=== PATIENT | female | born 1945 | race Two or more races ===

== ENCOUNTER → 2020-09-08 13:11 | Outpatient (BNVA) | payer MEDICARE, SELFPAY | PROVIDERS: PCP Internal Medicine; Visit Provider Nurse Practitioner Family | DX: I47.1 Supraventricular tachycardia (principal); R00.2 Palpitations | CPT/HCPCS: Q3014 ==

== ENCOUNTER 2020-11-22 10:39 | Outpatient (REF) | payer MEDICARE, SELFPAY ==
[2020-11-22 12:28] LABS: Alanine Aminotransferase 24 U/L (0-31); Albumin Level 3.9 g/dL (3.5-5.0); Alkaline Phosphatase 102 U/L (39-117); Anion Gap 13 (12-20); Aspartate Amino Transferase 21 U/L (5-31); Bilirubin Total 0.6 mg/dL (0.0-1.0); Blood Urea Nitrogen 21 mg/dL (9-16); Calcium 8.8 mg/dL (8.4-10.2); Carbon Dioxide 28 mmol/L (22-29); Chloride 103 mmol/L (96-108); Estimated Glomerular Filt Rate > 60; Glucose Fasting 139 mg/dL (60-99); Sodium 140 mmol/L (135-145); Total Protein 6.6 g/dL (6.5-8.0)
[2020-11-22 12:41] LABS: TSH reflex Free T4 1.88 uIU/mL (0.32-4.0)
[2020-11-22 12:45] LABS: Syphilis Screen Nonreactive (Nonreactive)
[2020-11-22 12:58] LABS: Folate 13.6 ng/mL (> or = 4.0); Vitamin B12 1173 pg/mL (200-900)
[2020-11-28 13:36] LABS: Vitamin D 25-OH, D2 <4 ng/mL; Vitamin D 25-OH, D3 38 ng/mL; Vitamin D 25-OH, Total 38 ng/mL (30-100)
== END 2020-11-22 10:40 | disposition home or self-care (01) ==
LOC: HO.LAB 10:39
PROVIDERS: Absent Provider Internal Medicine Nephrology; PCP Internal Medicine; Referring Provider Psychiatry & Neurology Neurology; Visit Provider Internal Medicine
DX: R41.3 Other amnesia (principal); E03.9 Hypothyroidism, unspecified; E53.8 Deficiency of other specified B group vitamins; E55.9 Vitamin D deficiency, unspecified; E11.9 Type 2 diabetes mellitus without complications; I10 Essential (primary) hypertension; R60.9 Edema, unspecified; R31.29 Other microscopic hematuria
CPT/HCPCS: 36415; 80053; 82306; 82607; 82746; 84443; 86780

== ENCOUNTER → 2020-11-24 15:08 | Outpatient (REF) | payer MEDICARE, SELFPAY ==
--- NOTE | 2020-11-25 10:02 | ECG_ITS ---
Hook-up date: 2020-11-24 15:20:00 Duration: 24:05:00 Test Indications: PALPITATIONS, SVT Medications: 63151 QRS complexes 291 Ventricular ectopics which represent <1 % of total QRS comp. 128 Supraventricular ectopics which represent <1 % of total QRS comp. * Paced QRS complexs which represent % of total QRS comp. VENTRICULAR ECTOPY 291 Isolated 0 Bigeminal Cycles 0 Couplets 0 Runs 0 Beats in Runs * Beats LONGEST at * BPM at :: -- * Beats FASTEST at * BPM at :: -- SUPRAVENTRICULAR ECTOPY 53 Isolated 3 Couplets 8 Runs 69 Beats in Runs 23 Beats LONGEST at 123 BPM at 13:20:58 2020-11-25 4 Beats FASTEST at 138 BPM at 16:50:37 2020-11-24 HEART RATES 50 MIN at 04:35:07 2020-11-25 58 AVG 127 MAX at 13:39:03 2020-11-25 LONGEST RR 1.4960 secs at 09:46:41 2020-11-25 S-T LEVELS Channel 1 - 128 mm at 15:20:00 2020-11-24 - 128 mm at 15:20:00 2020-11-24 Channel 2 - 128 mm at 15:20:00 2020-11-24 - 128 mm at 15:20:00 2020-11-24 Channel 3 - 128 mm at 03:43:91 -- - 128 mm at 03:43:91 Basic rhythm Normal sinus rhythm No long pause or profound bradycardia Occasional Premature ventricular complexes Short runs of SVE c/w PAT No diary submitted Referred By: Dulce Reyes Overread By: DEEPAK HEATH MD
== END ==
LOC: HO.CARD 15:08
PROVIDERS: PCP Internal Medicine; Visit Provider Nurse Practitioner Family
DX: I47.1 Supraventricular tachycardia (principal); R00.2 Palpitations
CPT/HCPCS: 93226

== ENCOUNTER → 2020-12-06 11:08 | Outpatient (BNVA) | payer MEDICARE, SELFPAY | PROVIDERS: PCP Internal Medicine; Visit Provider Nurse Practitioner Family | DX: I47.1 Supraventricular tachycardia (principal); R00.2 Palpitations | CPT/HCPCS: Q3014 ==

== ENCOUNTER 2021-05-09 11:20 | Outpatient (REF) | payer MEDICARE, SELFPAY ==
--- NOTE | ~2021-05-09 | XR_ITS ---
EXAMINATION: XR HIP, RIGHT XR HIP, LEFT CLINICAL INFORMATION: Pain. COMPARISON: Right hip radiographs dated 09/15/2016. Pelvic and bilateral hip radiographs dated 07/19/2015. TECHNIQUE: AP view of the pelvis. AP and frog-leg lateral views of the right and left hip. FINDINGS: Right Hip: Mild right hip joint space narrowing. Lateral acetabular marginal osteophytes and subchondral cystic change. No acute fracture or dislocation. No abnormal soft tissue calcification. Left Hip: Mild left hip joint space narrowing with acetabular marginal osteophytes, increased when compared to the prior examination. No acute fracture or dislocation. No abnormal soft tissue calcification. Moderate degenerative arthritis at the symphysis pubis, increased when compared to the prior examination. XR/XR hip RT min 2V IMPRESSION: 1. Moderate right hip osteotomy arthritis, unchanged when compared to the radiographs dated 09/15/2016. 2. Moderate left hip osteoarthritis, progressed when compared to the radiographs dated 07/19/2015. 3. 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
--- NOTE | ~2021-05-09 | XR_ITS ---
EXAMINATION: XR HIP, RIGHT XR HIP, LEFT CLINICAL INFORMATION: Pain. COMPARISON: Right hip radiographs dated 09/15/2016. Pelvic and bilateral hip radiographs dated 07/19/2015. TECHNIQUE: AP view of the pelvis. AP and frog-leg lateral views of the right and left hip. FINDINGS: Right Hip: Mild right hip joint space narrowing. Lateral acetabular marginal osteophytes and subchondral cystic change. No acute fracture or dislocation. No abnormal soft tissue calcification. Left Hip: Mild left hip joint space narrowing with acetabular marginal osteophytes, increased when compared to the prior examination. No acute fracture or dislocation. No abnormal soft tissue calcification. Moderate degenerative arthritis at the symphysis pubis, increased when compared to the prior examination. XR/XR hip LT min 2V IMPRESSION: 1. Moderate right hip osteotomy arthritis, unchanged when compared to the radiographs dated 09/15/2016. 2. Moderate left hip osteoarthritis, progressed when compared to the radiographs dated 07/19/2015. 3. 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
[2021-05-09 11:36] LABS: MANUAL DIFF FLAG NO
[2021-05-09 11:55] LABS: Basophils Absolute Auto 0.1 X10*3/uL (0.0-0.2); Basophils Percent Auto 1.1 % (0-2); Eosinophils Absolute Auto 0.2 X10*3/uL (0.0-0.4); Eosinophils Percent Auto 2.6 % (0-4); Hematocrit 44.2 % (37-47); Hemoglobin 14.4 g/dl (12.0-16.0); Imm Gran Abs Auto 0.02 X10*3/uL (0.00-0.03); Imm Gran Pct Auto 0.3 % (0.0-0.4); Lymphocytes Percent Auto 32.6 % (20-40); Mean Corpuscular HGB Conc 32.6 g/dl (31.0-35.0); Mean Corpuscular Hemoglobin 28.9 pg (27.0-33.0); Mean Corpuscular Volume 88.8 fL (80-98); Mean Platelet Volume 10.9 fL (9.4-12.3); Monocytes Absolute Auto 0.7 X10*3/uL (0.1-1.2); Monocytes Percent Auto 11.2 % (2-11); Neutrophils Absolute Auto 3.3 X10*3/uL (2.0-8.3); Neutrophils Percent Auto 52.2 % (45-73); Platelet Count 186 X10*3/uL (160-400); Red Blood Count 4.98 X10*6/uL (4.20-5.50); Red Cell Distribution Width 14.1 % (11.0-16.0); White Blood Count 6.3 X10*3/uL (4.8-10.8)
[2021-05-09 12:19] LABS: Alanine Aminotransferase 18 U/L (0-31); Albumin Level 3.9 g/dL (3.5-5.0); Alkaline Phosphatase 120 U/L (39-117); Anion Gap 11 (12-20); Aspartate Amino Transferase 19 U/L (5-31); Bilirubin Total 0.4 mg/dL (0.0-1.0); Blood Urea Nitrogen 17 mg/dL (9-16); Calcium 9.2 mg/dL (8.4-10.2); Carbon Dioxide 28 mmol/L (22-29); Chloride 106 mmol/L (96-108); Cholesterol 177 mg/dL; Estimated Glomerular Filt Rate 59; Glucose Fasting 163 mg/dL (60-99); HDL Cholesterol 42 mg/dL; LDL Cholesterol Calculated 118 mg/dl; Magnesium 2.2 mg/dL (1.6-2.6); Potassium 4.8 mmol/L (3.3-5.1); Sodium 140 mmol/L (135-145); Total Protein 6.8 g/dL (6.5-8.0); Triglycerides 87 mg/dL
[2021-05-09 12:40] LABS: TSH reflex Free T4 (Prenatal) 0.64 uIU/mL (0.32-4.0); Thyroid Stimulating Hormone 0.66 uIU/mL (0.32-4.0)
[2021-05-09 12:59] LABS: Folate 13.3 ng/mL (> or = 4.0); Vitamin B12 > 2000 pg/mL (200-900)
[2021-05-09 13:56] LABS: Creatinine Urine 150.13 mg/dL; Microalbum/Creatinine Ratio Ur 41.9 ug/mg cr
[2021-05-13 13:42] LABS: Vitamin D 25-OH, D2 <4 ng/mL; Vitamin D 25-OH, D3 36 ng/mL; Vitamin D 25-OH, Total 36 ng/mL (30-100)
== END 2021-05-09 11:21 | disposition home or self-care (01) ==
LOC: HO.XRAY 11:20
PROVIDERS: Nurse Practitioner Family; PCP Internal Medicine; Visit Provider Internal Medicine
DX: M25.552 Pain in left hip (principal); M25.551 Pain in right hip; I47.1 Supraventricular tachycardia; R00.2 Palpitations; E11.9 Type 2 diabetes mellitus without complications; E78.5 Hyperlipidemia, unspecified; E55.9 Vitamin D deficiency, unspecified; E53.8 Deficiency of other specified B group vitamins; D64.9 Anemia, unspecified; E03.9 Hypothyroidism, unspecified
CPT/HCPCS: 36415; 73502; 80053; 80061; 82043; 82306; 82607; 82746; 83735; 84443; 85025

== ENCOUNTER 2022-01-17 12:28 | Outpatient (REF) | payer MEDICARE, SELFPAY ==
--- NOTE | ~2022-01-17 | MM_ITS ---
EXAMINATION: MM SCREENING DIGITAL BREAST TOMOSYNTHESIS, BILATERAL CLINICAL INFORMATION: Screening. Asymptomatic. Prior history bilateral excisional breast biopsies. The lifetime risk of breast cancer based on the Tyrer-Cuzick Model is 2%. COMPARISON: Mammography: 12/02/2018, 06/03/2018, 11/26/2017, 11/21/2017 TECHNIQUE: Digital breast tomosynthesis is performed in both the craniocaudal and mediolateral oblique views along with computer-aided detection (CAD). Synthesized 2D images are generated from the tomosynthesis. Additional bilateral MLO views are provided. FINDINGS: There are scattered areas of fibroglandular density (ACR BI-RADS breast composition Category b). There are stable post surgical changes with minor scarring and central left surgical clips similar to prior exams. There is no developing density or interval significant mass or architectural abnormality. There are scattered bilateral vascular and some fine round rim predominantly dermal calcifications in the posterior medial breasts. Right breast again has several scattered tightly grouped coarse calcifications suggesting foci of fibroadenomatous change. The axilla are unremarkable. No significant changes from prior study. MM/MM tomosynthesis screening BI IMPRESSION: No mammographic evidence of malignancy. ASSESSMENT: BI-RADS 2: Benign RECOMMENDATION: Routine annual mammography screening. This patient's information was entered into a reminder system with a target due date for their next mammogram.
== END 2022-01-17 12:29 | disposition home or self-care (01) ==
LOC: HO.MAMMO 12:28
PROVIDERS: PCP Internal Medicine; Visit Provider Internal Medicine
DX: Z12.31 Encounter for screening mammogram for malignant neoplasm of breast (principal)
CPT/HCPCS: 77063; 77067

== ENCOUNTER 2023-01-29 13:43 | Outpatient (REF) | payer OTHER, SELFPAY ==
--- NOTE | ~2023-01-29 | MM_ITS ---
EXAMINATION: MM SCREENING DIGITAL BREAST TOMOSYNTHESIS, BILATERAL CLINICAL INFORMATION: Screening. Asymptomatic. Remote history bilateral benign excisional biopsies, 2007. The lifetime risk of breast cancer based on the Tyrer-Cuzick Model is 2%. COMPARISON: Mammography: 01/17/2022, 12/02/2018, 06/03/2018, 11/26/2017, 11/21/2017 TECHNIQUE: Digital breast tomosynthesis is performed in both the craniocaudal and mediolateral oblique views along with computer-aided detection (CAD). Synthesized 2D images are generated from the tomosynthesis. Additional right MLO view is provided. FINDINGS: The breasts are heterogeneously dense, which may obscure small masses (ACR BI-RADS breast composition Category c). Parenchymal pattern is similar to prior studies with bilateral minor scarring and surgical clips consistent with the prior excisional biopsies. There is no developing density or interval mass or architectural abnormality. No abnormal calcifications. The axilla are unremarkable. No significant changes. MM/MM tomosynthesis screening BI IMPRESSION: No mammographic evidence of malignancy. ASSESSMENT: BI-RADS 2: Benign RECOMMENDATION: Routine annual mammography screening. This patient's information was entered into a reminder system with a target due date for their next mammogram.
== END 2023-01-29 13:44 | disposition home or self-care (01) ==
LOC: HO.MAMMO 13:43
PROVIDERS: PCP Internal Medicine; Visit Provider Internal Medicine
DX: Z12.31 Encounter for screening mammogram for malignant neoplasm of breast (principal)
CPT/HCPCS: 77063; 77067

== ENCOUNTER 2023-02-21 12:59 | Outpatient (AMB) | payer MEDICARE, SELFPAY ==
--- NOTE | 2023-02-21 13:02 | A.OFFPC_ITS ---
Vital Signs 02/21/23 13:03 Height 5 ft 4 in Weight 187 lb BMI 32.1 BP 110/68 Blood Pressure Location Lt brachial Position Sitting Intake Visit Reasons: dm Intake Note: Patient here for a follow up DM [employer]enic [employer] Supervisor Required: No Accompanied by: Self / Same As Patient Allergies codeine [CODEINE] Allergy (Intermediate, Verified 02/21/23 13:21) PRURITUS ibuprofen Allergy (Intermediate, Verified 02/21/23 13:21) stomach upset morphine [MORPHINE] Allergy (Intermediate, Verified 02/21/23 13:21) PRURITUS Penicillins [PENICILLINS] Allergy (Intermediate, Verified 02/21/23 13:21) SWELLING Medication List - Last Reconciled 02/21/23 by Nori Parra MD albuterol sulfate 2.5 mg (3 mL) inhalation TID PRN 30 days alcohol swabs 0 pad topical aspirin 81 mg PO DAILY blood sugar diagnostic As directed blood-glucose meter As directed cetirizine 10 mg PO BID 30 days cyanocobalamin (vitamin B-12) 1,000 mcg PO DAILY flecainide 50 mg PO Q12H 30 days fluticasone propionate 44 mcg/actuation (Flovent HFA) 1 puff inhalation BID 30 days [hospital bed side table As directed] insulin aspart U-100 units subcut insulin glargine (Lantus Solostar U-100 Insulin) 16 units (0.16 mL) subcut BEDTIME levothyroxine 88 mcg PO DAILY lidocaine 5% 1 patch topical DAILY PRN 30 days lisinopril 2.5 mg PO DAILY melatonin 0 mg PO metoprolol succinate ER 25 mg PO DAILY mirtazapine 15 mg PO BEDTIME nebulizers (AeroEclipse II Nebulizer) As directed omeprazole 20 mg PO DAILY 90 days oxycodone-acetaminophen 5-325 mg (Percocet) 1 tab PO Q8H PRN 30 days pen needle, diabetic As directed pregabalin 200 mg PO DAILY rosuvastatin 40 mg PO DAILY trazodone 150 mg PO Q OTHER DAY PRN triamcinolone acetonide 0.5% 1 appl topical DAILY 30 days Tobacco use date assessed: 09/28/22 Fall risk assessment: No Falls in past year Last assessed Fall Risk: 02/21/23 Dental Screening Dental Screen Date: 02/21/23 Did you have a dental visit in the last 12 months?: No Did you have a dental problem in the last 6 months where you did not have access to dental care?: No Was dental information given to patient?: Patient has dentist HPI HPI Comments History of Present Illness Details This is a 77-year-old female with diabetes mellitus type 2, hypertension, hypothyroidism and high cholesterol that comes today for follow-up on her conditions. Walks with a cane for gait stability. A1c within goal. Blood pressure stable. On statins for high cholesterol. Her LDL goal should be less than 70. Diabetes mellitus and thyroid are follow by Endocrinology. Hypertension follow by cardiology. Microalbuminuria follow by Nephrology. Complains of pain in feet and swelling that started few weeks ago. No previous trauma. [facility] Medical History B12 deficiency Cognitive impairment Diabetes Diabetic polyneuropathy GERD (gastroesophageal reflux disease) High cholesterol Hypertension Hypothyroidism Insomnia Left hip pain Leg edema Osteoarthritis, hip, bilateral Palpitations Physical exam Right hip pain SVT (supraventricular tachycardia) Urge urinary incontinence Surgical History History of total abdominal hysterectomy Hx of bilateral breast biopsy Family History Father CVD (cardiovascular disease) Mother CVD (cardiovascular disease) Son No problems noted. Social History Housing: Apartment Alcohol intake: current Alcohol intake frequency: holidays/special occasions only Alcohol type: wine Patient Tobacco Use Status: Former Tobacco user Tobacco use type: Cigarette e-Cigarette/Vaping Use: Never Used Second Hand Smoke Exposure: No service: No Current occupational status: disabled Cognitive needs: Yes Hearing needs: No Vision needs: No Questionnaire Thrive Questionnaire Date Thrive assessed: 09/28/22 CLAU-7 AMB Questionnaire CLAU-7 Date CLAU - 7 assessed: 09/28/22 Source: Developed by Drs. Anil Jimenes, Rain Becerra, Byron Carmona and colleagues, with an educational jammie from [employer] Review of Systems Const All systems reviewed & are unremarkable except as noted in HPI and below Eyes Reports no additional complaints, Denies change in vision and Denies other visual disturbances Card Denies chest pain at rest, Denies chest pain with activity, Denies edema, Denies irregular heart rhythm, Denies claudication, Denies dyspnea, Denies dyspnea on exertion, Denies orthopnea, Denies paroxysmal nocturnal dyspnea and Denies slow heart rate Resp Denies cough, Denies dyspnea and Denies dyspnea on exertion GI Denies abdominal pain, Denies change in bowel habits, Denies excessive flatus, Denies nausea and Denies vomiting Denies urinary incontinence, Denies urinary hesitancy and Denies urinary urgency Musc Denies abnormal gait, Denies atrophy, Denies deformity, Reports arthralgias and Denies limited range of motion Skin/Breast Denies bleeding lesions, Denies changing lesions and Denies rash Neuro Denies abnormal gait and Denies lack of coordination Physical exam (Primary Care) Vital Signs: Last Vital Signs BP 110/68 02/21/23 13:03 BMI result Body Mass Index 32.1 Tobacco/Smoking Status: Tobacco use Status Tobacco use date assessed 09/28/22 02/21/23 13:08 Patient Tobacco Use Status Former Tobacco user 02/21/23 13:08 Tobacco use type Cigarette 02/21/23 13:08 e-Cigarette/Vaping Use Never Used 02/21/23 13:08 Thrive Assessment: Date of Thrive Assessment Date Thrive assessed 09/28/22 02/21/23 13:08 Eyes General: appearance normal, both eyes and all related structures Eyelids: Yes eyelids normal Conjunctivae: conjunctivae normal Neck Neck: Yes normal visual inspection and Yes supple Resp Effort & Inspection: normal respiratory effort Auscultation: clear to auscultation bilaterally Cardio Jugular venous distension: no JVD Rate: regular rate Rhythm: regular rhythm Heart sounds: S1 normal heart sound present and S2 normal heart sound present Extrem General: Yes full ROM Results AMB Hemoglobin A1c AMB Hemoglobin A1c 6.6 % Last Edit by ADDISON Pearce on 02/21/23 13:1 7 Results Reviewed Results Reviewed: Laboratory Last Values Hgb A1c (Clinic) 6.6 % (4.0-6.0) H 02/21/23 13:01 Assessment and Plan Assessment & Plan (1) Diabetes: Code(s): E11.9 - Type 2 diabetes mellitus without complications Qualifiers: Diabetes mellitus type: type 2 Diabetes mellitus halfway insulin use: with computer terminal operator use Diabetes mellitus complication status: with hyperglycemia Qualified Code(s): E11.65 - Type 2 diabetes mellitus with hyperglycemia; Z79.4 - intermediate manager (current) use of insulin Plan: Continue insulin. A1c goal is equal or less than 7%. (2) Hypertension: Code(s): I10 - Essential (primary) hypertension Qualifiers: Hypertension type: essential hypertension Qualified Code(s): I10 - Essential (primary) hypertension Plan: Continue lisinopril. Blood pressure goal is equal or less than 130/80. (3) Hypothyroidism: Code(s): E03.9 - Hypothyroidism, unspecified Qualifiers: Hypothyroidism type: acquired Qualified Code(s): E03.9 - Hypothyroidism, unspecified Plan: Continue levothyroxine. (4) High cholesterol: Code(s): E78.00 - Pure hypercholesterolemia, unspecified Plan: Continue statins. LDL goal should be less than 70 Orders: Orders AMB Hemoglobin A1c Today E11.9 - Type 2 diabetes mellitus without complications Medications: New diclofenac sodium 1% (Arthritis Pain (diclofenac)) apply to single elbow, wrist or hand; for hand includes palm/fingers/back of hand 2 grams topical QID 30 days PRN 100 grams 1RF pain oxycodone Partial Fill upon patient request. 5 mg PO Q8H 30 days PRN 90 tabs 0RF pain fluocinolone acetonide oil 0.01% (DermOtic Oil) 5 drps otic (ear) left BID 7 days 20 mL 0RF Discontinued oxycodone-acetaminophen 5-325 mg (Percocet) Discontinued Reason: Patient Completed Course 1 tab PO Q8H 30 days PRN 90 tabs 0RF pain Coding Level of Care Code Est Pt Level 4 (18916) Diagnoses Diabetes E11.65; Z79.4 Diabetes mellitus type: type 2 Diabetes mellitus computer terminal operator insulin use: with halfway use Diabetes mellitus complication status: with hyperglycemia Hypertension I10 Hypertension type: essential hypertension Hypothyroidism E03.9 Hypothyroidism type: acquired High cholesterol E78.00 Time Spent (min) 23
[2023-02-21 13:03] VITALS: BP 110/68; BMI 32.1
== END 2023-02-21 13:37 | disposition home or self-care (01) ==
PROVIDERS: Visit Provider Internal Medicine
DX: E11.65 Type 2 diabetes mellitus with hyperglycemia (principal); Z79.4 Long term (current) use of insulin; I10 Essential (primary) hypertension; E03.9 Hypothyroidism, unspecified; E78.00 Pure hypercholesterolemia, unspecified; E11.9 Type 2 diabetes mellitus without complications
CPT/HCPCS: 83036; 99214

== ENCOUNTER 2023-06-12 13:15 | Outpatient (AMB) | payer MEDICARE, SELFPAY ==
[2023-06-12 13:30] VITALS: BP 112/60; PULSE 66; BMI 32.7
--- NOTE | 2023-06-12 13:30 | HO.NEPHOV ---
HPI HPI Comments History of Present Illness Details Barbi was seen in the office for follow-up of her history of microscopic hematuria and proteinuria. She, at times, has mild bilateral pedal edema. She does not have any shortness of breath, paroxysmal nocturnal dyspnea, orthopnea. She takes nonsteroidal anti-inflammatory medications but not on a regular basis. She has not had any urinary infection, microscopic hematuria, dizziness, chest pain. She sees a manager spa Dr. Soto who manages her heart rhythm. She is maintained on lisinopril. She had no new active complaints during this office visit. Her blood sugars are reasonably well controlled. She has lost some weight . [facility] [place] Medical History Physical exam Osteoarthritis, hip, bilateral Right hip pain Left hip pain Palpitations SVT (supraventricular tachycardia) B12 deficiency Leg edema Cognitive impairment Diabetic polyneuropathy Insomnia GERD (gastroesophageal reflux disease) High cholesterol Diabetes Hypothyroidism Hypertension Urge urinary incontinence Surgical History History of total abdominal hysterectomy Hx of bilateral breast biopsy Family History Father CVD (cardiovascular disease) Mother CVD (cardiovascular disease) Son No problems noted. Social History Housing: Apartment Alcohol intake: current Alcohol intake frequency: holidays/special occasions only Alcohol type: wine Patient Tobacco Use Status: Former Tobacco user Tobacco use type: Cigarette e-Cigarette/Vaping Use: Never Used Second Hand Smoke Exposure: No service: No Current occupational status: disabled Cognitive needs: Yes Hearing needs: No Vision needs: No Vital Signs 06/12/23 13:30 Height 5 ft 4 in Weight 190 lb 8 oz BMI 32.7 BP 112/60 Blood Pressure Location Lt brachial Position Sitting Pulse 66 Pulse Source Pulse Oximeter Assessment & Plan Assessment & Plan (1) Hypertension: Code(s): I10 - Essential (primary) hypertension Qualifiers: Hypertension type: essential hypertension Qualified Code(s): I10 - Essential (primary) hypertension Plan Serenity has history of microscopic hematuria and proteinuria. She is on Marcio inhibitors. Her blood pressure is at goal. She has not had any macroscopic hematuria. Her renal functions have been stable. She needs to maintain her blood sugar at goal. She needs to lose more weight. She will be a candidate for Jardiance or Farxiga. I have ordered follow-up lab work. All her questions were answered. She is going to be seen in follow-up. Time spent retrieving data, patient encounter and documentation 27 minutes Orders: Orders Electrolytes Today I10 - Essential (primary) hypertension, R31.9 - Hematuria, unspecified Blood Urea Nitrogen Today I10 - Essential (primary) hypertension, R31.9 - Hematuria, unspecified Calcium Today I10 - Essential (primary) hypertension, R31.9 - Hematuria, unspecified Protein Creatinine Ratio, Ur Today I10 - Essential (primary) hypertension, R31.9 - Hematuria, unspecified Creatinine Today I10 - Essential (primary) hypertension, R31.9 - Hematuria, unspecified Coding Level of Care Code Est Pt Level 3 (54084) Diagnoses Essential hypertension I10 Hypertension type: essential hypertension
== END 2023-06-12 13:55 | disposition home or self-care (01) ==
PROVIDERS: PCP Internal Medicine; Visit Provider Internal Medicine Nephrology
DX: I10 Essential (primary) hypertension (principal)
CPT/HCPCS: 99213

== ENCOUNTER → 2023-06-12 13:15 | Outpatient (BNVA) | payer MEDICARE, SELFPAY | PROVIDERS: PCP Internal Medicine; Visit Provider Internal Medicine Nephrology | DX: I10 Essential (primary) hypertension (principal) | CPT/HCPCS: 99212 ==

== ENCOUNTER 2023-06-13 13:28 | Outpatient (AMB) | payer MEDICARE, SELFPAY ==
[2023-06-13 13:43] VITALS: BP 124/80; PULSE 55; O2SAT 96; BMI 32.1
--- NOTE | 2023-06-13 13:43 | A.OFFPC_ITS ---
Vital Signs 06/13/23 13:43 Height 5 ft 4 in Weight 187 lb BMI 32.1 BP 124/80 Blood Pressure Location Lt brachial Position Sitting Pulse 55 Pulse Source Pulse Oximeter Pulse Oximetry (%) 96 Oxygen Delivery Method Room Air Intake Visit Reasons: 2mth f/u Intake Note: Patient is here to follow up on 2 month f/u. 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 Accompanied by: Self / Same As Patient Allergies codeine [CODEINE] Allergy (Intermediate, Verified 06/13/23 14:08) PRURITUS ibuprofen Allergy (Intermediate, Verified 06/13/23 14:08) stomach upset morphine [MORPHINE] Allergy (Intermediate, Verified 06/13/23 14:08) PRURITUS Penicillins [PENICILLINS] Allergy (Intermediate, Verified 06/13/23 14:08) SWELLING Medication List - Last Reconciled 06/13/23 by Nori Parra MD albuterol sulfate 2.5 mg (3 mL) inhalation TID PRN 30 days alcohol swabs 0 pad topical aspirin 81 mg PO DAILY blood sugar diagnostic As directed blood-glucose meter As directed cetirizine 10 mg PO BID 30 days flecainide 50 mg PO Q12H 30 days fluocinolone acetonide oil 0.01% (DermOtic Oil) 5 drps otic (ear) left BID 7 days fluticasone propionate 44 mcg/actuation (Flovent HFA) 1 puff inhalation BID 30 days [hospital bed side table As directed] incontinence pad, liner, disp Use 1 pad three times a day insulin aspart U-100 units subcut insulin glargine (Lantus Solostar U-100 Insulin) 16 units (0.16 mL) subcut BEDTIME latex gloves (Latex Gloves, Large) As directed levothyroxine 88 mcg PO DAILY lisinopril 2.5 mg PO DAILY metoprolol succinate ER 25 mg PO DAILY nebulizers (AeroEclipse II Nebulizer) As directed omeprazole 20 mg PO DAILY 90 days oxycodone 5 mg PO Q8H PRN 30 days pen needle, diabetic As directed pregabalin 200 mg PO DAILY rosuvastatin 40 mg PO DAILY trazodone 150 mg PO Q OTHER DAY PRN [wipes As directed] Tobacco use date assessed: 06/13/23 Fall risk assessment: No Falls in past year Last assessed Fall Risk: 06/13/23 HPI HPI Comments History of Present Illness Details This is 77-year-old female with diabetes mellitus type 2 on long-term current use of insulin, hyperlipidemia, hypothyroidism lumbar degenerative disc disease that comes today for follow-up on her conditions. A1c within goal. On statins for cholesterol and her LDL goal should be less than 70. Last TSH in April was normal. Has chronic back pain due to lumbar degenerative disc disease well control with oxycodone and reports no side effects. Patient aware that oxycodone can cause addiction and sedation. Complains of left ear pain. Has mild major depression and insomnia stable with trazodone. REPLACED BY [facility] Medical History (Updated 06/13/23 @ 15:11 by Nori Parra MD) Physical exam Osteoarthritis, hip, bilateral Right hip pain Left hip pain Palpitations SVT (supraventricular tachycardia) B12 deficiency Leg edema Cognitive impairment Diabetic polyneuropathy Insomnia GERD (gastroesophageal reflux disease) High cholesterol Diabetes Hypothyroidism Hypertension Urge urinary incontinence Surgical History History of total abdominal hysterectomy Hx of bilateral breast biopsy Family History Father CVD (cardiovascular disease) Mother CVD (cardiovascular disease) Son No problems noted. Social History Housing: Apartment Alcohol intake: current Alcohol intake frequency: holidays/special occasions only Alcohol type: wine Patient Tobacco Use Status: Former Tobacco user Tobacco use type: Cigarette e-Cigarette/Vaping Use: Never Used Second Hand Smoke Exposure: No service: No Current occupational status: disabled Cognitive needs: Yes Hearing needs: No Vision needs: No Questionnaire PHQ-9 Over the last 2 weeks, how often have you been bothered by any of the following problems? 1. Little interest or pleasure in doing things: several days 2. Feeling down, depressed, or hopeless: nearly every day 3. Trouble falling or staying asleep, or sleeping too much: several days 4. Feeling tired or having little energy: several days 5. Poor appetite or overeating: several days 6. Feeling bad about yourself - or that you are a failure or have let yourself or your family down: not at all 7. Trouble concentrating on things, such as reading the newspaper or watching television: several days 8. Moving or speaking so slowly that other people could have noticed. Or the opposite - being so fidgety or restless that you have been moving around a lot more than usual: not at all 9. Thoughts that you would be better off or of hurting yourself in some way: not at all Total score: 8 Depression Screening Interpretation: Positive Depression Screening Follow-up: Existing condition Depression Screening Done: Yes 99934 - PHQ-9 Billing: Yes Source: Developed by Drs. Anil Jimenes, Rain Becerra, Byron Carmona and colleagues, with an educational jammie from [employer]. Thrive Questionnaire Date Thrive assessed: 09/28/22 AUDIT C Alcohol Use Questionnaire (AUDIT-C) 1. How often do you have a drink containing alcohol?: Never Total Score: 0 CLAU-7 AMB Questionnaire CLAU-7 Date CLAU - 7 assessed: 09/28/22 Source: Developed by Drs. Anil Jimenes, Rain Becerra, Byron Carmona and colleagues, with an educational jammie from [employer]. Review of Systems Const All systems reviewed & are unremarkable except as noted in HPI and below Eyes Reports no additional complaints, Denies change in vision and Denies other visual disturbances Card Denies chest pain at rest, Denies chest pain with activity, Denies edema, Denies irregular heart rhythm, Denies claudication, Denies dyspnea, Denies dyspnea on exertion, Denies orthopnea, Denies paroxysmal nocturnal dyspnea and Denies slow heart rate Resp Denies cough, Denies dyspnea and Denies dyspnea on exertion GI Denies abdominal pain, Denies change in bowel habits, Denies excessive flatus, Denies nausea and Denies vomiting Denies urinary incontinence, Denies urinary hesitancy and Denies urinary urgency Musc Denies abnormal gait, Denies atrophy, Denies deformity and Denies limited range of motion Skin/Breast Denies bleeding lesions, Denies changing lesions and Denies rash Neuro Denies abnormal gait and Denies lack of coordination Physical exam (Primary Care) Vital Signs: Last Vital Signs Pulse 55 06/13/23 13:43 BP 124/80 06/13/23 13:43 Pulse Ox 96 06/13/23 13:43 Oxygen Delivery Method Room Air 06/13/23 13:43 BMI result Body Mass Index 32.1 Tobacco/Smoking Status: Tobacco use Status Tobacco use date assessed 06/13/23 06/13/23 13:44 Patient Tobacco Use Status Former Tobacco user 06/13/23 13:44 Tobacco use type Cigarette 06/13/23 13:44 e-Cigarette/Vaping Use Never Used 06/13/23 13:44 PHQ-9: PHQ-9 Score PHQ-9: Total score 8 06/13/23 14:14 Depression Screening Interpretation: Positive Depression Screening Follow-up: Existing condition Thrive Assessment: Date of Thrive Assessment Date Thrive assessed 09/28/22 06/13/23 13:44 Eyes General: appearance normal, both eyes and all related structures Eyelids: Yes eyelids normal Conjunctivae: conjunctivae normal Neck Neck: Yes normal visual inspection and Yes supple Resp Effort & Inspection: normal respiratory effort Auscultation: clear to auscultation bilaterally Cardio Jugular venous distension: no JVD Rate: regular rate Rhythm: regular rhythm Heart sounds: S1 normal heart sound present and S2 normal heart sound present Extrem General: Yes full ROM Results AMB Hemoglobin A1c AMB Hemoglobin A1c 6.4 % Last Edit by ADDISON Escobar on 06/13/23 13:58 Results Reviewed Results Reviewed: Laboratory Last Values Hgb A1c (Clinic) 6.4 % (4.0-6.0) H 06/13/23 13:42 Assessment and Plan Assessment & Plan (1) Diabetes: Code(s): E11.9 - Type 2 diabetes mellitus without complications Qualifiers: Diabetes mellitus type: type 2 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 A1c goal is equal or less than 7%. Follow-up with endocr inology. (2) Hypothyroidism: Code(s): E03.9 - Hypothyroidism, unspecified Qualifiers: Hypothyroidism type: acquired Qualified Code(s): E03.9 - Hypothyroidism, unspecified Plan: Continue levothyroxine. Follow-up with endocrinology. (3) Hyperlipidemia LDL goal <70: Code(s): E78.5 - Hyperlipidemia, unspecified Plan: Continue statins. LDL goal should be less than 70. (4) Lumbar degenerative disc disease: Code(s): M51.36 - Other intervertebral disc degeneration, lumbar region Plan: Continue opiates as needed. (5) Mild major depression: Code(s): F32.0 - Major depressive disorder, single episode, mild Plan: Continue trazodone. Orders: Orders AMB Hemoglobin A1c Today E11.9 - Type 2 diabetes mellitus without complications Medications: New acetaminophen 500 mg PO Q6H 30 days PRN 100 tabs 6RF fever or pain ciprofloxacin-hydrocortisone 0.2-1 % (Cipro HC) 3 drps otic (ears) BID 7 days 10 mL 0RF Refilled oxycodone Partial Fill upon patient request. 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
== END 2023-06-13 14:27 | disposition home or self-care (01) ==
PROVIDERS: PCP Internal Medicine; Visit Provider Internal Medicine
DX: E11.65 Type 2 diabetes mellitus with hyperglycemia (principal); Z79.4 Long term (current) use of insulin; F32.0 Major depressive disorder, single episode, mild; E03.9 Hypothyroidism, unspecified; E78.5 Hyperlipidemia, unspecified; M51.36 Other intervertebral disc degeneration, lumbar region
CPT/HCPCS: 83036; 99214

== ENCOUNTER 2023-09-12 11:59 | Outpatient (AMB) | payer MEDICARE, SELFPAY ==
--- NOTE | 2023-09-12 12:10 | HO.NEPHOV_ITS ---
HPI HPI Comments History of Present Illness Details Serenity was seen in the office for follow-up of her history of microscopic hematuria and proteinuria. She, at times, has mild bilateral pedal edema. She does not have any shortness of breath, paroxysmal nocturnal dyspnea, orthopnea. She takes nonsteroidal anti-inflammatory medications but not on a regular basis. She has not had any urinary infection, microscopic hematuria, dizziness, chest pain. She sees a homicide investigator Dr. Soto who manages her heart rhythm. She is maintained on lisinopril. She had no new active complaints during this office visit. Her blood sugars are reasonably well controlled. She has lost some weight PFSH Medical History Physical exam Osteoarthritis, hip, bilateral Right hip pain Left hip pain Palpitations SVT (supraventricular tachycardia) B12 deficiency Leg edema Cognitive impairment Diabetic polyneuropathy Insomnia GERD (gastroesophageal reflux disease) High cholesterol Diabetes Hypothyroidism Hypertension Urge urinary incontinence Surgical History History of total abdominal hysterectomy Hx of bilateral breast biopsy Family History Father CVD (cardiovascular disease) Mother CVD (cardiovascular disease) Son No problems noted. Social History Housing: Apartment Alcohol intake: current Alcohol intake frequency: holidays/special occasions only Alcohol type: wine Patient Tobacco Use Status: Former Tobacco user Tobacco use type: Cigarette e-Cigarette/Vaping Use: Never Used Second Hand Smoke Exposure: No service: No Current occupational status: disabled Cognitive needs: Yes Hearing needs: No Vision needs: No Vital Signs 09/12/23 12:11 Height 5 ft 4 in Weight 191 lb 4 oz BMI 32.8 BP 110/70 Blood Pressure Location Rt brachial Position Sitting Pulse 56 Pulse Source Pulse Oximeter Pulse Oximetry (%) 96 Oxygen Delivery Method Room Air Physical Exam Vital Signs: Last Vital Signs Pulse 56 09/12/23 12:11 BP 110/70 09/12/23 12:11 Pulse Ox 96 09/12/23 12:11 Oxygen Delivery Method Room Air 09/12/23 12:11 BMI result Body Mass Index 32.8 Const General: comfortable and no acute distress Orientation/consciousness: patient oriented x3 HEENT Head: Yes normocephalic Mouth: Normal oral and palatal mucosa present Eyes EOM: EOMs intact bilaterally Neck Neck: Yes supple Resp Auscultation: clear to auscultation bilaterally Cardio Jugular venous distension: no JVD Rate: regular rate GI Palpation (GI): Soft to palpation Auscultation: normal bowel sounds General: Yes no CVA tenderness Back/Spine/Pelvis Back: no CVA tenderness Skin General skin exam: no rashes or lesions noted Neuro General: patient oriented x3 and moves all extremities Extrem General: Yes no pedal edema Assessment & Plan Assessment & Plan (1) Hypertension: Code(s): I10 - Essential (primary) hypertension Qualifiers: Hypertension type: essential hypertension Qualified Code(s): I10 - Essential (primary) hypertension Plan Serenity has history of microscopic hematuria and proteinuria. She is on Marcio inhibitors. Her blood pressure is at goal. She has not had any macroscopic h ematuria. Her renal functions have been stable. She needs to maintain her blood sugar at goal. She needs to lose more weight. She will be a candidate for GenticeldiSensiotec or [email or web address]. I have ordered follow-up lab work. All her questions were answered. She is going to be seen in follow-up Coding Level of Care Code Est Pt Level 3 (79933) Diagnoses Essential hypertension I10 Hypertension type: essential hypertension Results Reviewed Nephrology Results: Hgb 14.4 g/dl (12.0-16.0) 05/09/21 WBC 6.3 X10*3/uL (4.8-10.8) 05/09/21 Plt Count 186 X10*3/uL (160-400) 05/09/21 Sodium 140 mmol/L (135-145) 05/09/21 Potassium 4.8 mmol/L (3.3-5.1) 05/09/21 Chloride 106 mmol/L (96-108) 05/09/21 Carbon Dioxide 28 mmol/L (22-29) 05/09/21 BUN 17 mg/dL (9-16) H 05/09/21 Creatinine 0.93 mg/dL (0.5-1.4) 05/09/21 Calcium 9.2 mg/dL (8.4-10.2) 05/09/21 Urine Creatinine 150.13 mg/dL 05/09/21
[2023-09-12 12:11] VITALS: BP 110/70; PULSE 56; O2SAT 96; BMI 32.8
== END 2023-09-12 12:27 | disposition home or self-care (01) ==
PROVIDERS: PCP Internal Medicine; Visit Provider Internal Medicine Nephrology
DX: I10 Essential (primary) hypertension (principal)
CPT/HCPCS: 99213

== ENCOUNTER → 2023-09-12 11:59 | Outpatient (BNVA) | payer MEDICARE, SELFPAY | PROVIDERS: PCP Internal Medicine; Visit Provider Internal Medicine Nephrology | DX: I10 Essential (primary) hypertension (principal) | CPT/HCPCS: 99212 ==

== ENCOUNTER 2023-09-17 12:35 | Outpatient (AMB) | payer MEDICARE, SELFPAY ==
[2023-09-17 13:33] VITALS: BP 112/72; BMI 32.8
--- NOTE | 2023-09-17 13:33 | MHC.PC.OV ---
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: No Accompanied by: Self / Same As Patient Allergies codeine [CODEINE] Allergy (Intermediate, Verified 09/17/23 13:56) PRURITUS ibuprofen Allergy (Intermediate, Verified 09/17/23 13:56) stomach upset morphine [MORPHINE] Allergy (Intermediate, Verified 09/17/23 13:56) PRURITUS Penicillins [PENICILLINS] Allergy (Intermediate, Verified 09/17/23 13:56) SWELLING Medication List - Last Reconciled 09/17/23 by Nori Parra MD acetaminophen 500 mg PO Q6H PRN 30 days albuterol sulfate 2.5 mg (3 mL) inhalation TID PRN 30 days alcohol swabs 0 pad topical aspirin 81 mg PO DAILY blood sugar diagnostic As directed blood-glucose meter As directed cetirizine 10 mg PO BID 30 days flecainide 50 mg PO Q12H 30 days fluticasone propion-salmeterol 115-21 mcg/actuation (Advair HFA) 2 puffs inhalation BID 30 days [hospital bed side table As directed] incontinence pad, liner, disp Use 1 pad three times a day insulin aspart U-100 units subcut insulin glargine (Lantus Solostar U-100 Insulin) 16 units (0.16 mL) subcut BEDTIME latex gloves (Latex Gloves, Large) As directed levothyroxine 88 mcg PO DAILY lisinopril 2.5 mg PO DAILY melatonin 10 mg PO BEDTIME PRN 60 days metoprolol succinate ER 25 mg PO DAILY nebulizers (AeroEclipse II Nebulizer) As directed omeprazole 20 mg PO DAILY 90 days oxycodone 5 mg PO Q8H PRN 30 days pen needle, diabetic As directed pregabalin 200 mg PO DAILY rosuvastatin 40 mg PO DAILY trazodone 150 mg PO Q OTHER DAY PRN [wipes As directed] Tobacco use date assessed: 09/17/23 Fall risk assessment: 1 Fall in past year Last assessed Fall Risk: 09/17/23 Dental Screening Dental Screen Date: 09/17/23 Did you have a dental visit in the last 12 months?: No Did you have a dental problem in the last 6 months where you did not have access to dental care?: No Was dental information given to patient?: Patient has dentist HPI HPI Comments History of Present Illness Details This is a 78-year-old female with mild major depression, diabetes mellitus type 2 on long-term current use of insulin, hypertension, hyperlipidemia and lumbar degenerative disc disease that comes today for follow-up on her conditions. Walks with a cane for gait stability due to her chronic back pain. Depression stable with trazodone. A1c slightly more elevated than usual. Dietary changes were advised. Blood pressure stable. Lipid panel was order and her LDL goal should be less than 70. On opiate for lumbar degenerative disc disease which works well for her. Patient is aware that can cause addiction, sedation and memory loss. [facility], [facility] Medical History Physical exam Osteoarthritis, hip, bilateral Right hip pain Left hip pain Palpitations SVT (supraventricular tachycardia) B12 deficiency Leg edema Cognitive impairment Diabetic polyneuropathy Insomnia GERD (gastroesophageal reflux disease) High cholesterol Diabetes Hypothyroidism Hypertension Urge urinary incontinence Surgical History History of total abdominal hysterectomy Hx of bilateral breast biopsy Family History Father CVD (cardiovascular disease) Mother CVD (cardiovascular disease) Son No problems noted. Social History Housing: Apartment Alcohol intake: current Alcohol intake frequency: holidays/special occasions only Alcohol type: wine Patient Tobacco Use Status: Former Tobacco user Tobacco use type: Cigarette e-Cigarette/Vaping Use: Never Used Second Hand Smoke Exposure: No service: No Current occupational status: disabled Cognitive needs: Yes Hearing needs: No Vision needs: No Questionnaire PHQ-9 Over the last 2 weeks, how often have you been bothered by any of the following problems? 1. Little interest or pleasure in doing things: several days 2. Feeling down, depressed, or hopeless: nearly every day 3. Trouble falling or staying asleep, or sleeping too much: several days 4. Feeling tired or having little energy: several days 5. Poor appetite or overeating: several days 6. Feeling bad about yourself - or that you are a failure or have let yourself or your family down: not at all 7. Trouble concentrating on things, such as reading the newspaper or watching television: several days 8. Moving or speaking so slowly that other people could have noticed. Or the opposite - being so fidgety or restless that you have been moving around a lot more than usual: not at all 9. Thoughts that you would be better off or of hurting yourself in some way: not at all Total score: 8 Depression Screening Interpretation: Positive Depression Screening Follow-up: Existing condition Depression Screening Done: Yes 19936 - PHQ-9 Billing: Yes Source: Developed by Drs. Anil Jimenes, Rain Becerra, Byron Carmona and colleagues, with an educational jammie from [employer]. Thrive Questionnaire Date Thrive assessed: 09/17/23 I am a: Patient What is your living situation today?: I have a steady place to live Within the past 12 months, did the food you bought not last and you didn't have the money to get more?: Never true Within the past 12 months, did you worry whether your food would run out before you got money to buy more?: Never true Do you have trouble paying for medicines?: No Do you have trouble getting transportation to medical appointments?: No Do you have trouble paying your heating and electricity bill?: No Do you have trouble taking care of your child, family member or friend?: No Do you have trouble with day-to-day activities such as bathing, preparing meals, shopping, managing finances, etc.?: No Are you currently unemployed and looking for a job?: No Are you interested in more education?: No Please select the resources that you would like help with: None Currently or been in a relationship where the following occur: no concerns reported THRIVE Score: 0 AUDIT C Alcohol Use Questionnaire (AUDIT-C) 1. How often do you have a drink containing alcohol?: Monthly or less 2. How many drinks containing alcohol do you have on a typical day when you are drinking?: 1 or 2 3. How often do you have six or more drinks on one occasion?: Never Total Score: 1 CLAU-7 AMB Questionnaire CLAU-7 Date CLAU - 7 assessed: 09/17/23 Feeling nervous, anxious, or on edge: 1 = Several days Not being able to stop or control worryin = Not at all Worrying too much about different things: 1 = Several days Trouble relaxin = Not at all Being so restless that it is hard to sit still: 0 = Not at all Becoming easily annoyed or irritable: 0 = Not at all Feeling afraid as if something awful might happen: 1 = Several days Total CLAU-7 score (0-4 normal; 5-9 mild; 10-14 moderate; 15-21 severe): 3 Source: Developed by Drs. Anil Jimenes, Rain Becerra, Byron Carmona and colleagues, with an educational jammie from [employer]. CLAU-7 Assessment Billing CLAU-7 Assessment Tool: CLAU-7 Assessment 09848 Review of Systems Const All systems reviewed & are unremarkable except as noted in HPI and below Eyes Reports no additional complaints, Denies change in vision and Denies other visual disturbances Card Denies chest pain at rest, Denies chest pain with activity, Denies edema, Denies irregular heart rhythm, Denies claudication, Denies dyspnea, Denies dyspnea on exertion, Denies orthopnea, Denies paroxysmal nocturnal dyspnea and Denies slow heart rate Resp Denies cough, Denies dyspnea and Denies dyspnea on exertion GI Denies abdominal pain, Denies change in bowel habits, Denies excessive flatus, Denies nausea and Denies vomiting Denies urinary incontinence, Denies urinary hesitancy and Denies urinary urgency Musc Denies abnormal gait, Denies atrophy, Denies deformity and Denies limited range of motion Skin/Breast Denies bleeding lesions, Denies changing lesions and Denies rash Neuro Denies abnormal gait, Denies behavioral changes and Denies lack of coordination Psych Denies behavioral changes Physical exam (Primary Care) Vital Signs: Last Vital Signs BP 112/72 09/17/23 13:33 BMI result Body Mass Index 32.8 Tobacco/Smoking Status: Tobacco use Status Tobacco use date assessed 09/17/23 09/17/23 13:42 Patient Tobacco Use Status Former Tobacco user 09/17/23 13:35 Tobacco use type Cigarette 09/17/23 13:35 e-Cigarette/Vaping Use Never Used 09/17/23 13:35 PHQ-9: PHQ-9 Score PHQ-9: Total score 8 09/17/23 13:42 Depression Screening Interpretation: Positive Depression Screening Follow-up: Existing condition Thrive Assessment: Date of Thrive Assessment Date Thrive assessed 09/17/23 09/17/23 13:42 Currently or been in a relationship where the following occur: no concerns reported Eyes General: appearance normal, both eyes and all related structures Eyelids: Yes eyelids normal Conjunctivae: conjunctivae normal Neck Neck: Yes normal visual inspection and Yes supple Resp Effort & Inspection: normal respiratory effort Auscultation: clear to auscultation bilaterally Cardio Jugular venous distension: no JVD Rate: regular rate Rhythm: regular rhythm Heart sounds: S1 normal heart sound present and S2 normal heart sound present Extrem General: Yes full ROM Results AMB Hemoglobin A1c AMB Hemoglobin A1c 7.1 % Last Edit by ADDISON Pearce on 09/17/23 13:45 Results Reviewed Results Reviewed: Laboratory Last Values Hgb A1c (Clinic) 7.1 % (4.0-6.0) H 09/17/23 13:42 Assessment and Plan Assessment & Plan (1) Mild major depression: Code(s): F32.0 - Major depressive disorder, single episode, mild Plan: Continue trazodone. (2) Hyperlipidemia LDL goal <70: Code(s): E78.5 - Hyperlipidemia, unspecified Plan: Continue statins. Repeat lipid panel. LDL goal is less than 70. (3) Lumbar degenerative disc disease: Code(s): M51.36 - Other intervertebral disc degeneration, lumbar region Plan: Continue opiates as needed. (4) Diabetes: Code(s): E11.9 - Type 2 diabetes mellitus without complications Qualifiers: Diabetes mellitus type: type 2 Diabetes mellitus mcc insulin use: with process tank tender use Diabetes mellitus complication status: with hyperglycemia Qualified Code(s): E11.65 - Type 2 diabetes mellitus with hyperglycemia; Z79.4 - regulatory consultant (current) use of insulin Plan: Continue insulin. Follow-up with endocrinology. A1c goal is equal or less than 7%. (5) Hypertension: Code(s): I10 - Essential (primary) hypertension Qualifiers: Hypertension type: essential hypertension Qualified Code(s): I10 - Essential (primary) hypertension Plan: Continue lisinopril. Blood pressure goal is equal or less than 130/80. Orders: Orders AMB Hemoglobin A1c Today E11.9 - Type 2 diabetes mellitus without complications Lipid Panel Today E78.5 - Hyperlipidemia, unspecified Microalbumin, Random (w Creat) Today E11.9 - Type 2 diabetes mellitus without complications Vitamin D 25-OH Total Today E55.9 - Vitamin D deficiency, unspecified Comprehensive [place]. Panel Fast Today E78.5 - Hyperlipidemia, unspecified Thyroid Stimulating Hormone Today E03.9 - Hypothyroidism, unspecified Coding Level of Care Code Est Pt Level 4 (34511) Diagnoses Mild major depression F32.0 Hyperlipidemia LDL goal <70 E78.5 Lumbar degenerative disc disease M51.36 Type 2 diabetes mellitus with hyperglycemia, with long-term current use of insulin E11.65; Z79.4 Diabetes mellitus type: type 2 Diabetes mellitus process tank tender insulin use: with process tank tender use Diabetes mellitus complication status: with hyperglycemia Essential hypertension I10 Hypertension type: essential hypertension Additional Codes CLAU-7 Assessment Billing - CLAU-7 Assessment Tool: CLAU-7 Assessment [id number] ([id number]) Time Spent (min) 24
== END 2023-09-17 14:05 | disposition home or self-care (01) ==
PROVIDERS: PCP Internal Medicine; Visit Provider Internal Medicine
DX: E11.65 Type 2 diabetes mellitus with hyperglycemia (principal); Z79.4 Long term (current) use of insulin; F32.0 Major depressive disorder, single episode, mild; E11.9 Type 2 diabetes mellitus without complications; M51.36 Other intervertebral disc degeneration, lumbar region; E78.5 Hyperlipidemia, unspecified; I10 Essential (primary) hypertension
CPT/HCPCS: 83036; 96127; 99214

== ENCOUNTER 2023-09-25 10:14 | Outpatient (REF) | payer MEDICARE, SELFPAY ==
[2023-09-25 11:35] LABS: Appearance Urine Turbid; Color Urine Yellow; Glucose Urine UA Negative (Negative); Leukocyte Esterase Urine Negative (Negative); Nitrite Urine Negative (Negative); PH 7.5 (5.0-9.0); Specific Gravity - Urine 1.015 (1.005-1.025); UMIC TRIGGER UA YES; Urine Blood Negative (Negative); Urine Ketones Negative (Negative); Urine Protein 30 (1+) mg/dL (Neg-Trace)
[2023-09-25 11:55] LABS: Bacteria Urine 1+ (None Seen); Hyaline Casts Urine 0-2 /LPF (0-2); Other Crystals Urine Present; RBC Urine 0-2 /HPF (0-2); WBC Urine 0-5 /HPF (0-5)
[2023-09-25 12:14] LABS: Alanine Aminotransferase 15 U/L (0-31); Albumin Level 3.8 g/dL (3.5-5.0); Alkaline Phosphatase 116 U/L (39-117); Anion Gap 11 (12-20); Aspartate Amino Transferase 21 U/L (5-31); Bilirubin Total 0.4 mg/dL (0.0-1.0); Blood Urea Nitrogen 14 mg/dL (9-16); Calcium 8.9 mg/dL (8.4-10.2); Carbon Dioxide 29 mmol/L (22-29); Chloride 106 mmol/L (96-108); Cholesterol 213 mg/dL (<200); Estimated Glomerular Filt Rate 56; Glucose Fasting 120 mg/dL (60-99); HDL Cholesterol 50 mg/dL (>40); LDL Cholesterol Calculated 148 mg/dL (<100); Potassium 4.3 mmol/L (3.3-5.1); Sodium 142 mmol/L (135-145); Triglycerides 77 mg/dL (<150)
[2023-09-25 12:17] LABS: Creatinine Urine 76.39 mg/dL; Microalbum/Creatinine Ratio Ur 74.6 ug/mg cr (<30)
[2023-09-25 12:37] LABS: Thyroid Stimulating Hormone 4.27 uIU/mL (0.32-4.0); Vitamin D 25-OH Total 39.4 ng/mL (>30)
== END 2023-09-25 10:15 | disposition home or self-care (01) ==
LOC: HO.HHCL 10:14
PROVIDERS: Internal Medicine Nephrology; Visit Provider Internal Medicine
DX: E78.5 Hyperlipidemia, unspecified (principal); R31.9 Hematuria, unspecified; E55.9 Vitamin D deficiency, unspecified; E03.9 Hypothyroidism, unspecified; E11.9 Type 2 diabetes mellitus without complications
CPT/HCPCS: 36415; 80053; 80061; 81001; 82043; 82306; 82570; 84443

== ENCOUNTER 2023-10-04 12:34 | Outpatient (AMB) | payer OTHER, SELFPAY ==
--- NOTE | 2023-10-04 12:53 | MHC.PC.OV ---
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: No Accompanied by: Self / Same As Patient Allergies codeine [CODEINE] Allergy (Intermediate, Verified 10/04/23 13:12) PRURITUS ibuprofen Allergy (Intermediate, Verified 10/04/23 13:12) stomach upset morphine [MORPHINE] Allergy (Intermediate, Verified 10/04/23 13:12) PRURITUS Penicillins [PENICILLINS] Allergy (Intermediate, Verified 10/04/23 13:12) SWELLING Medication List - Last Reconciled 10/04/23 by Nori Parra MD acetaminophen 500 mg PO Q6H PRN 30 days albuterol sulfate 2.5 mg (3 mL) inhalation TID PRN 30 days alcohol swabs 0 pad topical aspirin 81 mg PO DAILY blood sugar diagnostic As directed blood-glucose meter As directed cetirizine 10 mg PO BID 30 days flecainide 50 mg PO Q12H 30 days fluticasone propion-salmeterol 115-21 mcg/actuation (Advair HFA) 2 puffs inhalation BID 30 days [hospital bed side table As directed] incontinence pad, liner, disp Use 1 pad three times a day insulin aspart U-100 units subcut insulin glargine (Lantus Solostar U-100 Insulin) 16 units (0.16 mL) subcut BEDTIME latex gloves (Latex Gloves, Large) As directed levothyroxine 100 mcg PO DAILY 90 days lisinopril 2.5 mg PO DAILY melatonin 10 mg PO BEDTIME PRN 60 days metoprolol succinate ER 25 mg PO DAILY nebulizers (AeroEclipse II Nebulizer) As directed omeprazole 20 mg PO DAILY 90 days oxycodone 5 mg PO Q8H PRN 30 days pen needle, diabetic As directed pregabalin 200 mg PO DAILY rosuvastatin 40 mg PO DAILY trazodone 150 mg PO Q OTHER DAY PRN [wipes As directed] Tobacco use date assessed: 09/17/23 Fall risk assessment: 1 Fall in past year Last assessed Fall Risk: 10/04/23 Dental Screening Dental Screen Date: 10/04/23 Did you have a dental visit in the last 12 months?: No Did you have a dental problem in the last 6 months where you did not have access to dental care?: No Was dental information given to patient?: Patient has dentist HPI HPI Comments History of Present Illness Details This is a 78-year-old female with diabetes mellitus type 2 complicated by polyneuropathy and mild major depression that comes for her physical exam. A1c close to goal and polyneuropathy has been well control with pregabalin. She does follows with endocrinology that takes care of her diabetes and her hypothyroidism. Last mammogram was January 2023. Labs were discussed and TSH was slightly and levothyroxine was increased from 88 mcg to 100 mcg. She will inform her mechatronics technician. Depression stable with trazodone. No chest pain or shortness of breath. [facility] Medical History (Updated 10/04/23 @ 13:42 by Nori Parra MD) Physical exam Osteoarthritis, hip, bilateral Right hip pain Left hip pain Palpitations SVT (supraventricular tachycardia) B12 deficiency Leg edema Cognitive impairment Diabetic polyneuropathy Insomnia GERD (gastroesophageal reflux disease) High cholesterol Diabetes Hypothyroidism Hypertension Urge urinary incontinence Surgical History History of total abdominal hysterectomy Hx of bilateral breast biopsy Family History Father CVD (cardiovascular disease) Mother CVD (cardiovascular disease) Son No problems noted. Social History Housing: Apartment Alcohol intake: current Alcohol intake frequency: holidays/special occasions only Alcohol type: wine Patient Tobacco Use Status: Former Tobacco user Tobacco use type: Cigarette e-Cigarette/Vaping Use: Never Used Second Hand Smoke Exposure: No service: No Current occupational status: disabled Cognitive needs: Yes Hearing needs: No Vision needs: No Questionnaire Thrive Questionnaire Date Thrive assessed: 09/17/23 CLAU-7 AMB Questionnaire CLAU-7 Date CLAU - 7 assessed: 09/17/23 Source: Developed by Drs. Anil Jimenes, Rain Becerra, Byron Carmona and colleagues, with an educational jammie from [employer]. Review of Systems Const All systems reviewed & are unremarkable except as noted in HPI and below Eyes Reports no additional complaints, Denies change in vision and Denies other visual disturbances Card Denies chest pain at rest, Denies chest pain with activity, Denies edema, Denies irregular heart rhythm, Denies claudication, Denies dyspnea, Denies dyspnea on exertion, Denies orthopnea, Denies paroxysmal nocturnal dyspnea and Denies slow heart rate Resp Denies cough, Denies dyspnea and Denies dyspnea on exertion GI Denies abdominal pain, Denies change in bowel habits, Denies excessive flatus, Denies nausea and Denies vomiting Denies urinary incontinence, Denies urinary hesitancy and Denies urinary urgency Musc Denies abnormal gait, Denies atrophy, Denies deformity and Denies limited range of motion Skin/Breast Denies bleeding lesions, Denies changing lesions and Denies rash Neuro Denies abnormal gait and Denies lack of coordination Physical exam (Primary Care) Vital Signs: Last Vital Signs BP 120/70 10/04/23 12:54 BMI result Body Mass Index 32.8 Tobacco/Smoking Status: Tobacco use Status Tobacco use date assessed 09/17/23 10/04/23 12:54 Patient Tobacco Use Status Former Tobacco user 10/04/23 12:54 Tobacco use type Cigarette 10/04/23 12:54 e-Cigarette/Vaping Use Never Used 10/04/23 12:54 Thrive Assessment: Date of Thrive Assessment Date Thrive assessed 09/17/23 10/04/23 12:54 Eyes General: appearance normal, both eyes and all related structures Eyelids: Yes eyelids normal Conjunctivae: conjunctivae normal Neck Neck: Yes normal visual inspection and Yes supple Resp Effort & Inspection: normal respiratory effort Auscultation: clear to auscultation bilaterally Cardio Jugular venous distension: no JVD Rate: regular rate Rhythm: regular rhythm Heart sounds: S1 normal heart sound present and S2 normal heart sound present Extrem General: Yes full ROM Psych Appearance: grossly normal Assessment and Plan Assessment & Plan (1) Physical exam: Code(s): Z00.00 - Encounter for general adult medical examination without abnormal findings Plan: Repeat in a year. (2) Mild major depression: Code(s): F32.0 - Major depressive disorder, single episode, mild Plan: Continue trazodone. (3) Diabetic polyneuropathy: Code(s): E11.42 - Type 2 diabetes mellitus with diabetic polyneuropathy Qualifiers: Diabetes mellitus type: type 2 Qualified Code(s): E11.42 - Type 2 diabetes mellitus with diabetic polyneuropathy Plan: Continue pregabalin. Continue insulin. A1c goal is equal or less than 7%. Follow-up with endocrinology. Orders: Orders Microalbumin, Random (w Creat) 4 Months E11.9 - Type 2 diabetes mellitus without complications Comprehensive [place]. Panel Fast 4 Months E78.5 - Hyperlipidemia, unspecified Lipid Panel 4 Months E78.5 - Hyperlipidemia, unspecified Medications: New ezetimibe 10 mg PO DAILY 90 days 90 tabs 1RF fluticasone propion-salmeterol 100-50 mcg/dose (Wixela Inhub) 1 inh inhalation BID 30 days 60 ea 6RF J45.909 - Unspecified asthma, uncomplicated Changed From rosuvastatin 40 mg PO DAILY 28 tabs 6RF To rosuvastatin 40 mg PO DAILY 90 days 90 tabs 1RF Refilled levothyroxine 100 mcg PO DAILY 90 days 90 tabs 1RF oxycodone Partial Fill upon patient request. 5 mg PO Q8H 30 days PRN 90 tabs 0RF pain Discontinued melatonin Discontinued Reason: Patient Completed Course 10 mg PO BEDTIME 60 days PRN 60 caps 1RF sleep fluticasone propion-salmeterol 115-21 mcg/actuation (Advair HFA) Discontinued Reason: Patient Completed Course 2 puffs inhalation BID 30 days 12 grams 0RF Coding Level of Care Code Est Pt Prev Care >65y(38232) Diagnoses Physical exam Z00.00 Mild major depression F32.0 Diabetic polyneuropathy associated with type 2 diabetes mellitus E11.42 Diabetes mellitus type: type 2 Time Spent (min) 35
[2023-10-04 12:54] VITALS: BP 120/70; BMI 32.8
== END 2023-10-04 13:28 | disposition home or self-care (01) ==
PROVIDERS: Visit Provider Internal Medicine
DX: Z00.00 Encounter for general adult medical examination without abnormal findings (principal); F32.0 Major depressive disorder, single episode, mild; E11.42 Type 2 diabetes mellitus with diabetic polyneuropathy
CPT/HCPCS: 99397

== ENCOUNTER 2024-01-02 10:20 | Outpatient (REF) | payer OTHER, SELFPAY ==
[2024-01-02 12:02] LABS: Estimated Average Glucose 143 mg/dL; Hemoglobin A1c % 6.6 % (<6.0)
[2024-01-02 12:35] LABS: Creatinine Urine 197.49 mg/dL; Microalbum/Creatinine Ratio Ur 16.7 ug/mg cr (<30)
[2024-01-02 12:56] LABS: Alanine Aminotransferase 17 U/L (0-31); Albumin Level 3.8 g/dL (3.5-5.0); Alkaline Phosphatase 95 U/L (39-117); Anion Gap 11 (12-20); Aspartate Amino Transferase 24 U/L (5-31); Bilirubin Total 0.6 mg/dL (0.0-1.0); Blood Urea Nitrogen 12 mg/dL (9-16); Calcium 9.1 mg/dL (8.4-10.2); Carbon Dioxide 26 mmol/L (22-29); Chloride 108 mmol/L (96-108); Cholesterol 114 mg/dL (<200); Estimated Glomerular Filt Rate > 60; Glucose Fasting 149 mg/dL (60-99); HDL Cholesterol 43 mg/dL (>40); LDL Cholesterol Calculated 60 mg/dL (<100); Potassium 4.3 mmol/L (3.3-5.1); Sodium 141 mmol/L (135-145); Total Protein 6.8 g/dL (6.5-8.0); Triglycerides 55 mg/dL (<150)
[2024-01-02 13:04] LABS: TSH reflex Free T4 0.14 uIU/mL (0.32-4.0); Thyroid Stimulating Hormone 0.14 uIU/mL (0.32-4.0)
[2024-01-02 14:20] LABS: Free T4 (Free Thyroxine) 1.58 ng/dL (0.71-1.85)
== END 2024-01-02 10:21 | disposition home or self-care (01) ==
LOC: HO.LAB 10:20
PROVIDERS: Absent Provider Internal Medicine Endocrinology, Diabetes & Metabolism; PCP Internal Medicine; Visit Provider Internal Medicine
DX: E03.9 Hypothyroidism, unspecified (principal); E78.5 Hyperlipidemia, unspecified; E11.42 Type 2 diabetes mellitus with diabetic polyneuropathy
CPT/HCPCS: 36415; 80053; 80061; 82043; 82570; 83036; 84439; 84443

== ENCOUNTER 2024-01-11 11:14 | Outpatient (AMB) | payer MEDICARE, SELFPAY ==
--- NOTE | 2024-01-11 11:24 | HO.NEPHOV_ITS ---
Vital Signs 01/11/24 11:26 Height 5 ft 4 in Weight 186 lb 8 oz BMI 32.0 BP 112/60 Blood Pressure Location Lt brachial Position Sitting Pulse 57 Pulse Source Pulse Oximeter Pulse Oximetry (%) 94 Oxygen Delivery Method Room Air Intake Visit Reasons: Hypertension/ 4 MO FU/ Conf Vocational Rehabilitation Supervisor Required: No Accompanied by: Self / Same As Patient Allergies codeine [CODEINE] Allergy (Intermediate, Verified 01/11/24 11:29) PRURITUS ibuprofen Allergy (Intermediate, Verified 01/11/24 11:29) stomach upset morphine [MORPHINE] Allergy (Intermediate, Verified 01/11/24 11:29) PRURITUS Penicillins [PENICILLINS] Allergy (Intermediate, Verified 01/11/24 11:29) SWELLING HPI Comments Details: Serenity was seen in the office for follow-up of her history of microscopic hematuria and proteinuria. She, at times, has mild bilateral pedal edema. She does not have any shortness of breath, paroxysmal nocturnal dyspnea, orthopnea. She takes nonsteroidal anti-inflammatory medications but not on a regular basis. She has not had any urinary infection, microscopic hematuria, dizziness, chest pain. She sees a cloth dyer Dr. Soto who manages her heart rhythm. She is maintained on lisinopril. She had no new active complaints during this office visit. Her blood sugars are reasonably well controlled. [facility] Medical History (Updated 10/15/23 @ 13:27 by Nori Parra MD) Physical exam Osteoarthritis, hip, bilateral Right hip pain Left hip pain Palpitations SVT (supraventricular tachycardia) B12 deficiency Leg edema Cognitive impairment Diabetic polyneuropathy Insomnia GERD (gastroesophageal reflux disease) High cholesterol Diabetes Hypothyroidism Hypertension Urge urinary incontinence Surgical History History of total abdominal hysterectomy Hx of bilateral breast biopsy Family History Father CVD (cardiovascular disease) Mother CVD (cardiovascular disease) Son No problems noted. Social History Housing: Apartment Alcohol intake: current Alcohol intake frequency: holidays/special occasions only Alcohol type: wine Patient Tobacco Use Status: Former Tobacco user Tobacco use type: Cigarette e-Cigarette/Vaping Use: Never Used Second Hand Smoke Exposure: No service: No Current occupational status: disabled Cognitive needs: Yes Hearing needs: No Vision needs: No Physical Exam Vital Signs: Last Vital Signs Pulse 57 01/11/24 11:26 BP 112/60 01/11/24 11:26 Pulse Ox 94 01/11/24 11:26 Oxygen Delivery Method Room Air 01/11/24 11:26 BMI result Body Mass Index 32.0 Const General: comfortable and no acute distress Orientation/consciousness: patient oriented x3 HEENT Head: Yes normocephalic Mouth: Normal oral and palatal mucosa present Eyes EOM: EOMs intact bilaterally Neck Neck: Yes supple Resp Auscultation: clear to auscultation bilaterally Cardio Jugular venous distension: no JVD Rate: regular rate GI Palpation (GI): Soft to palpation Auscultation: normal bowel sounds General: Yes no CVA tenderness Back/Spine/Pelvis Back: no CVA tenderness Skin General skin exam: no rashes or lesions noted Neuro General: patient oriented x3 and moves all extremities Extrem General: Yes no pedal edema Results Reviewed Nephrology Results: Sodium 141 mmol/L (135-145) 01/02/24 Potassium 4.3 mmol/L (3.3-5.1) 01/02/24 Chloride 108 mmol/L (96-108) 01/02/24 Carbon Dioxide 26 mmol/L (22-29) 01/02/24 BUN 12 mg/dL (9-16) 01/02/24 Creatinine 0.78 mg/dL (0.5-1.4) 01/02/24 Calcium 9.1 mg/dL (8.4-10.2) 01/02/24 Urine Creatinine 197.49 mg/dL 01/02/24 Assessment & Plan Assessment & Plan (1) Hypertension: Code(s): I10 - Essential (primary) hypertension Category: Medical Qualifiers: Hypertension type: essential hypertension Qualified Code(s): I10 - Essential (primary) hypertension Plan Serenity has history of microscopic hematuria and proteinuria. She is on Marcio inhibitors. Her blood pressure is at goal. She has not had any macroscopic hematuria. Her renal functions have been stable. She needs to maintain her blood sugar at goal. She needs to lose more weight. She will be a candidate for Jardiance or Farxiga. I have ordered follow-up lab work. All her questions were answered. She is going to be seen in follow-up Orders: Orders Blood Urea Nitrogen Today I10 - Essential (primary) hypertension Electrolytes Today I10 - Essential (primary) hypertension Creatinine Today I10 - Essential (primary) hypertension Protein Creatinine Ratio, Ur Today I10 - Essential (primary) hypertension Coding Level of Care Code Est Pt Level 4 (02872) Diagnoses Essential hypertension I10 Hypertension type: essential hypertension
[2024-01-11 11:26] VITALS: BP 112/60; PULSE 57; O2SAT 94; BMI 32.0
== END 2024-01-11 11:40 | disposition home or self-care (01) ==
PROVIDERS: PCP Internal Medicine; Visit Provider Internal Medicine Nephrology
DX: I10 Essential (primary) hypertension (principal)
CPT/HCPCS: 99214

== ENCOUNTER → 2024-01-11 11:14 | Outpatient (BNVA) | payer MEDICARE, SELFPAY | PROVIDERS: PCP Internal Medicine; Visit Provider Internal Medicine Nephrology | DX: I10 Essential (primary) hypertension (principal) | CPT/HCPCS: 99212 ==

== ENCOUNTER 2024-02-05 13:42 | Outpatient (AMB) | payer OTHER, SELFPAY ==
[2024-02-05 13:44] VITALS: BP 126/70; PULSE 66; O2SAT 96; BMI 32.1
--- NOTE | 2024-02-05 13:44 | A.OFFPC_ITS ---
Vital Signs 02/05/24 13:44 Height 5 ft 4 in Weight 187 lb BMI 32.1 BP 126/70 Blood Pressure Location Lt brachial Position Sitting Pulse 66 Pulse Source Pulse Oximeter Pulse Oximetry (%) 96 Oxygen Delivery Method Room Air Intake Visit Reasons: dm Legal Instructor Required: No Accompanied by: Self / Same As Patient Allergies codeine [CODEINE] Allergy (Intermediate, Verified 02/05/24 13:59) PRURITUS ibuprofen Allergy (Intermediate, Verified 02/05/24 13:59) stomach upset morphine [MORPHINE] Allergy (Intermediate, Verified 02/05/24 13:59) PRURITUS Penicillins [PENICILLINS] Allergy (Intermediate, Verified 02/05/24 13:59) SWELLING Medication List - Last Reconciled 02/05/24 by Nori Parra MD acetaminophen 500 mg PO Q6H PRN 30 days albuterol sulfate 2.5 mg (3 mL) inhalation TID PRN 30 days alcohol swabs 0 pad topical aspirin 81 mg PO DAILY blood sugar diagnostic As directed blood-glucose meter As directed cetirizine 10 mg PO BID 30 days ezetimibe 10 mg PO DAILY 90 days flecainide 50 mg PO Q12H 30 days fluticasone propion-salmeterol 100-50 mcg/dose (Wixela Inhub) 1 inh inhalation BID 30 days [hospital bed side table As directed] incontinence pad, liner, disp Use 1 pad three times a day insulin aspart U-100 units subcut insulin glargine (Lantus Solostar U-100 Insulin) 16 units (0.16 mL) subcut BEDTIME latex gloves (Latex Gloves, Large) As directed levothyroxine 100 mcg PO DAILY 90 days lisinopril 2.5 mg PO DAILY metoprolol succinate ER 25 mg PO DAILY nebulizers (AeroEclipse II Nebulizer) As directed omeprazole 20 mg PO DAILY 90 days oxycodone 5 mg PO Q8H PRN 30 days pen needle, diabetic As directed pregabalin 200 mg PO DAILY rosuvastatin 40 mg PO DAILY 90 days trazodone 150 mg PO Q OTHER DAY PRN [wedge pillow As directed] [wipes As directed] Tobacco use date assessed: 09/17/23 Fall risk assessment: No Falls in past year Last assessed Fall Risk: 02/05/24 Dental Screening Dental Screen Date: 10/04/23 HPI HPI Comments History of Present Illness Details This is a 78-year-old female with diabetes mellitus type 2 on long-term current use of insulin, hypothyroidism, hypertension and mild major depression that complains of syncope that happened 2-3 months ago. She said she has had this episodes for years and had had workup done which was completely negative. Will order MRI of the brain. Last A1c was within goal. She follows with endocrinology for her hypothyroidism and diabetes. Depression has been in remission. No chest pain or shortness on breath. [facility] Medical History (Updated 02/05/24 @ 15:37 by Nori Parra MD) Physical exam Osteoarthritis, hip, bilateral Right hip pain Left hip pain Palpitations SVT (supraventricular tachycardia) B12 deficiency Leg edema Cognitive impairment Diabetic polyneuropathy Insomnia GERD (gastroesophageal reflux disease) High cholesterol Diabetes Hypothyroidism Hypertension Urge urinary incontinence Surgical History History of total abdominal hysterectomy Hx of bilateral breast biopsy Family History Father CVD (cardiovascular disease) Mother CVD (cardiovascular disease) Son No problems noted. Social History Housing: Apartment Alcohol intake: current Alcohol intake frequency: holidays/special occasions only Alcohol type: wine Patient Tobacco Use Status: Former Tobacco user Tobacco use type: Cigarette e-Cigarette/Vaping Use: Never Used Second Hand Smoke Exposure: No service: No Current occupational status: disabled Cognitive needs: Yes Hearing needs: No Vision needs: No Questionnaire Thrive Questionnaire Date Thrive assessed: 09/17/23 AUDIT C Alcohol Use Questionnaire (AUDIT-C) 1. How often do you have a drink containing alcohol?: Monthly or less 2. How many drinks containing alcohol do you have on a typical day when you are drinking?: 1 or 2 3. How often do you have six or more drinks on one occasion?: Never Total Score: 1 CLAU-7 AMB Questionnaire CLAU-7 Date CLAU - 7 assessed: 09/17/23 Source: Developed by Drs. Anil Jimenes, Rain Becerra, Byron Carmona and colleagues, with an educational jammie from [employer]. Review of Systems Const All systems reviewed & are unremarkable except as noted in HPI and below Card Denies chest pain at rest, Denies chest pain with activity, Denies edema, Denies irregular heart rhythm, Denies claudication, Denies dyspnea, Denies dyspnea on exertion, Denies orthopnea, Denies paroxysmal nocturnal dyspnea and Denies slow heart rate Resp Denies cough, Denies dyspnea and Denies dyspnea on exertion GI Denies abdominal pain, Denies change in bowel habits, Denies excessive flatus, Denies nausea and Denies vomiting Denies urinary incontinence, Denies urinary hesitancy and Denies urinary urgency Physical exam (Primary Care) Vital Signs: Last Vital Signs Pulse 66 02/05/24 13:44 BP 126/70 02/05/24 13:44 Pulse Ox 96 02/05/24 13:44 Oxygen Delivery Method Room Air 02/05/24 13:44 BMI result Body Mass Index 32.1 Tobacco/Smoking Status: Tobacco use Status Tobacco use date assessed 09/17/23 02/05/24 13:45 Patient Tobacco Use Status Former Tobacco user 02/05/24 13:45 Tobacco use type Cigarette 02/05/24 13:45 e-Cigarette/Vaping Use Never Used 02/05/24 13:45 Thrive Assessment: Date of Thrive Assessment Date Thrive assessed 09/17/23 02/05/24 13:45 Resp Effort & Inspection: normal respiratory effort Auscultation: clear to auscultation bilaterally Cardio Jugular venous distension: no JVD Rate: regular rate Rhythm: regular rhythm Heart sounds: S1 normal heart sound present and S2 normal heart sound present Extrem General: Yes full ROM Assessment and Plan Assessment & Plan (1) Mild major depression: Code(s): F32.0 - Major depressive disorder, single episode, mild Plan: In remission. (2) Syncope: Code(s): R55 - Syncope and collapse Qualifiers: Syncope type: unspecified Qualified Code(s): R55 - Syncope and collapse Plan: MRI of the brain ordered. (3) Diabetes: Code(s): E11.9 - Type 2 diabetes mellitus without complications Qualifiers: Diabetes mellitus type: type 2 Diabetes mellitus residential insulin use: with residential use Diabetes mellitus complication status: with hyperglycemia Qualified Code(s): E11.65 - Type 2 diabetes mellitus with hyperglycemia; Z79.4 - assisted (current) use of insulin Plan: Continue insulin. Follow-up with endocrinology. A1c goal is equal or less than 7%. (4) Hypothyroidism: Code(s): E03.9 - Hypothyroidism, unspecified Qualifiers: Hypothyroidism type: acquired Qualified Code(s): E03.9 - Hypothyroidism, unspecified Plan: Continue levothyroxine. Follow-up with endocrinology. (5) Hypertension: Code(s): I10 - Essential (primary) hypertension Qualifiers: Hypertension type: essential hypertension Qualified Code(s): I10 - Essential (primary) hypertension Plan: Continue lisinopril. Blood pressure goal is equal or less than 130/80. Orders: Orders MR head/brain wo con Today R55 - Syncope and collapse Medications: Refilled latex gloves (Latex Gloves, Large) As directed 24 ea 11RF M51.36 - Other intervertebral disc degeneration, lumbar region incontinence pad, liner, disp Use 1 pad three times a day 90 ea 11RF M51.36 - Other intervertebral disc degeneration, lumbar region, N39.46 - Mixed incontinence fluticasone propion-salmeterol 100-50 mcg/dose (Wixela Inhub) 1 inh inhalation BID 30 days 60 ea 6RF J45.909 - Unspecified asthma, uncomplicated [wipes] As directed 4 ea 11RF M51.36 - Other intervertebral disc degeneration, lumbar region, N39.46 - Mixed incontinence oxycodone Partial Fill upon patient request. 5 mg PO Q8H 30 days PRN 90 tabs 0RF pain Coding Level of Care Code Est Pt Level 4 (01959) Complex EM visit Add On G2211 Diagnoses Mild major depression F32.0 Syncope, unspecified syncope type R55 Syncope type: unspecified Type 2 diabetes mellitus with hyperglycemia, with long-term current use of insulin E11.65; Z79.4 Diabetes mellitus type: type 2 Diabetes mellitus residential insulin use: with lobsterman use Diabetes mellitus complication status: with hyperglycemia Acquired hypothyroidism E03.9 Hypothyroidism type: acquired Essential hypertension I10 Hypertension type: essential hypertension Time Spent (min) 22
== END 2024-02-05 14:14 | disposition home or self-care (01) ==
PROVIDERS: PCP Internal Medicine; Visit Provider Internal Medicine
DX: F32.0 Major depressive disorder, single episode, mild (principal); R55 Syncope and collapse; E11.65 Type 2 diabetes mellitus with hyperglycemia; Z79.4 Long term (current) use of insulin; E03.9 Hypothyroidism, unspecified; I10 Essential (primary) hypertension
CPT/HCPCS: 99214; G2211

== ENCOUNTER 2024-02-20 11:40 | Outpatient (REF) | payer OTHER, SELFPAY ==
--- NOTE | ~2024-02-20 | MM_ITS ---
EXAMINATION: MM SCREENING DIGITAL BREAST TOMOSYNTHESIS, BILATERAL CLINICAL INFORMATION: Screening. Asymptomatic. Patient has had bilateral benign breast excisions. COMPARISON: Mammography: This study is compared with prior exams dating back to 2019. TECHNIQUE: Digital breast tomosynthesis is performed in both the craniocaudal and mediolateral oblique views along with computer-aided detection (CAD). Synthesized 2D images are generated from the tomosynthesis. FINDINGS: The breasts are heterogeneously dense, which may obscure small masses (ACR BI-RADS breast composition Category c). There are no significant masses, abnormal calcifications, or other abnormalities. There are coarse, benign calcifications in the right breast and postsurgical changes in each breast.. MM/MM tomosynthesis screening BI IMPRESSION: No mammographic evidence of malignancy. ASSESSMENT: BI-RADS BI-RADS 2 - Benign Findings RECOMMENDATION: Routine annual mammography screening. 1 year F/U This examination should not preclude the clinical evaluation of a suspicious palpable abnormality. This patient's information was entered into a reminder system with a target due date for their next mammogram.
== END 2024-02-20 11:41 | disposition home or self-care (01) ==
LOC: HO.MAMMO 11:40
PROVIDERS: PCP Internal Medicine; Visit Provider Internal Medicine
DX: Z12.31 Encounter for screening mammogram for malignant neoplasm of breast (principal)
CPT/HCPCS: 77063; 77067

== ENCOUNTER → 2024-02-20 12:15 | Outpatient (BNV) | payer OTHER, SELFPAY | PROVIDERS: PCP Internal Medicine; Visit Provider Radiology Diagnostic Radiology | DX: Z12.31 Encounter for screening mammogram for malignant neoplasm of breast (principal) | CPT/HCPCS: 77063; 77067 ==

== ENCOUNTER 2024-03-24 11:01 | Outpatient (REF) | payer MEDICARE, SELFPAY ==
--- NOTE | ~2024-03-24 | MR_ITS ---
MRI OF THE BRAIN WITHOUT IV CONTRAST INDICATION: Syncope and collapse. COMPARISON: Brain MRI November 26, 2018. TECHNIQUE: Multiplanar multisequence MR imaging of the brain was obtained without IV contrast. FINDINGS: There is no hydrocephalus, extra-axial surface collection, or herniation. There is mild chronic microangiopathy. The major flow voids at the skull base are preserved. There is no acute infarct on diffusion-weighted imaging. There is no intracranial hemorrhage on the gradient recalled echo acquisition. The midline structures are normal. The cerebellar tonsils are normally positioned. The cerebellum and brainstem are normal. The craniocervical junction is normal. Osseous marrow signal intensity is homogenous. The visualized soft tissues are unremarkable. Hyperostosis frontalis interna. MR/MR head/brain wo con IMPRESSION: * No acute intracranial findings. * There is mild chronic microangiopathy. * Partially empty sella and right petrous apex cephalocele that can be correlated for clinical signs of intracranial CSF hypertension/pseudotumor cerebri. Electronically signed by: Tung Cota MD 04/06/2024 10:19 AM EDT
== END 2024-03-24 11:02 | disposition home or self-care (01) ==
LOC: HO.MRI 11:01
PROVIDERS: PCP Internal Medicine; Visit Provider Internal Medicine
DX: R55 Syncope and collapse (principal)
CPT/HCPCS: 70551

== ENCOUNTER 2024-05-13 12:34 | Outpatient (AMB) | payer OTHER, SELFPAY ==
--- NOTE | 2024-05-13 12:38 | MHC.PC.OV ---
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 Accompanied by: Self / Same As Patient Allergies codeine [CODEINE] Allergy (Intermediate, Verified 05/13/24 12:53) PRURITUS ibuprofen Allergy (Intermediate, Verified 05/13/24 12:53) stomach upset morphine [MORPHINE] Allergy (Intermediate, Verified 05/13/24 12:53) PRURITUS Penicillins [PENICILLINS] Allergy (Intermediate, Verified 05/13/24 12:53) SWELLING Medication List - Last Reconciled 05/13/24 by Nori Parra MD acetaminophen 500 mg PO Q6H PRN 30 days albuterol sulfate 2.5 mg (3 mL) inhalation TID PRN 30 days alcohol swabs 0 pad topical aspirin 81 mg PO DAILY blood sugar diagnostic As directed blood-glucose meter As directed cetirizine 10 mg PO BID 30 days ezetimibe 10 mg PO DAILY 90 days flecainide 50 mg PO Q12H 30 days fluticasone propion-salmeterol 250-50 mcg/dose (Advair Diskus) 1 inh inhalation BID 30 days [hospital bed side table As directed] incontinence pad, liner, disp Use 1 pad three times a day insulin aspart U-100 units subcut insulin glargine (Lantus Solostar U-100 Insulin) 16 units (0.16 mL) subcut BEDTIME latex gloves (Latex Gloves, Large) As directed levothyroxine 100 mcg PO DAILY 90 days lisinopril 2.5 mg PO DAILY metoprolol succinate ER 25 mg PO DAILY nebulizers (AeroEclipse II Nebulizer) As directed omeprazole 20 mg PO DAILY 90 days oxycodone 5 mg PO Q8H PRN 30 days pen needle, diabetic As directed pregabalin 200 mg PO DAILY rosuvastatin 40 mg PO DAILY 90 days trazodone 150 mg PO Q OTHER DAY PRN [wedge pillow As directed] [wipes As directed] Tobacco use date assessed: 09/17/23 Fall risk assessment: No Falls in past year Last assessed Fall Risk: 05/13/24 Dental Screening Dental Screen Date: 05/13/24 Did you have a dental visit in the last 12 months?: No Did you have a dental problem in the last 6 months where you did not have access to dental care?: No Was dental information given to patient?: Patient has dentist HPI HPI Comments History of Present Illness Details This is a 78-year-old female with diabetes mellitus type 2, hypothyroidism and hypertension that comes accompanied by daughter complaining of persistent headaches associated with dizziness. MRI of the brain shows empty sella and signs of pseudotumor cerebri which I did refer her to Neurology and she has an appointment this month. A1c within goal. She does follows with endocrinology for her diabetes and hypothyroidism. Blood pressure stable. She also has mild major depression and currently does not see any psychiatrist. Mirtazapine does control her depression and insomnia. [facility] Medical History Physical exam Osteoarthritis, hip, bilateral Right hip pain Left hip pain Palpitations SVT (supraventricular tachycardia) B12 deficiency Leg edema Cognitive impairment Diabetic polyneuropathy Insomnia GERD (gastroesophageal reflux disease) High cholesterol Diabetes Hypothyroidism Hypertension Urge urinary incontinence Surgical History History of total abdominal hysterectomy Hx of bilateral breast biopsy Family History Father CVD (cardiovascular disease) Mother CVD (cardiovascular disease) Son No problems noted. Social History Housing: Apartment Alcohol intake: current Alcohol intake frequency: holidays/special occasions only Alcohol type: wine Patient Tobacco Use Status: Former Tobacco user Tobacco use type: Cigarette e-Cigarette/Vaping Use: Never Used Second Hand Smoke Exposure: No service: No Current occupational status: disabled Cognitive needs: Yes Hearing needs: No Vision needs: No Questionnaire Thrive Questionnaire Date Thrive assessed: 09/17/23 CLAU-7 AMB Questionnaire CLAU-7 Date CLAU - 7 assessed: 09/17/23 Source: Developed by Drs. Anil Jimenes, Rain Becerra, Byron Carmona and colleagues, with an educational jammie from [employer]. Review of Systems Const All systems reviewed & are unremarkable except as noted in HPI and below Card Denies chest pain at rest, Denies chest pain with activity, Denies edema, Denies irregular heart rhythm, Denies claudication, Denies dyspnea, Denies dyspnea on exertion, Denies orthopnea, Denies paroxysmal nocturnal dyspnea and Denies slow heart rate Resp Denies cough, Denies dyspnea and Denies dyspnea on exertion GI Denies abdominal pain, Denies change in bowel habits, Denies excessive flatus, Denies nausea and Denies vomiting Physical exam (Primary Care) Vital Signs: Last Vital Signs BP 122/60 05/13/24 12:40 BMI result Body Mass Index 32.1 BMI Assessment/Plan discussion: High BMI High, discussed plan: lifestyle, weight reduction, dietary and physical activity Tobacco/Smoking Status: Tobacco use Status Tobacco use date assessed 09/17/23 05/13/24 12:49 Patient Tobacco Use Status Former Tobacco user 05/13/24 12:49 Tobacco use type Cigarette 05/13/24 12:49 e-Cigarette/Vaping Use Never Used 05/13/24 12:49 Thrive Assessment: Date of Thrive Assessment Date Thrive assessed 09/17/23 05/13/24 12:49 Const Orientation/consciousness: patient oriented x3 Resp Effort & Inspection: normal respiratory effort Auscultation: clear to auscultation bilaterally Cardio Jugular venous distension: no JVD Rate: regular rate Rhythm: regular rhythm Heart sounds: S1 normal heart sound present and S2 normal heart sound present Neuro General: patient oriented x3 and no focal motor deficits Extrem General: Yes full ROM Office Procedures Flu Questionnaire Does the patient have a severe egg allergy?: No Does the patient have severe life threatening allergies?: No Does the patient have a fever or illness today?: No Has the patient ever had Guillain-Denver Syndrome?: No Has the patient ever had any past reaction to a flu shot?: No Results AMB Hemoglobin A1c AMB Hemoglobin A1c 7.1 % Last Edit by ADDISON Pearce on 05/13/24 12:54 Immunizations Fluarix Triv [id number] (PF) 45 mcg (15 mcg x 3)/0.5 mL IM syringe Performing Provider: Nori Parra MD Performing Location: [facility] [place] [facility] Administered by: ADDSION Pearce on 05/13/24 12:51 Dose Route Admin Location Dispensed Lot Number Expiration Date [facility] Service Engine [employer]airer 0.5 mL IM Left Deltoid 0.5 mL [id number] 02/02/25 [id number] [employer] VIS Given Date VIS Provided VIS Publication Date 05/13/24 Single Vaccine 21 Eligibility Eligibility Date Funding Source Not VF Eligible 05/13/24 Private Results Reviewed Results Reviewed: Laboratory Last Values Hgb A1c (Clinic) 7.1 % (4.0-6.0) H 05/13/24 12:37 Coding Level of Care Code Est Pt Level 4 (31625) Complex EM visit Add On G2211 Diagnoses Mild major depression F32.0 Persistent headaches R51.9 Acquired hypothyroidism E03.9 Hypothyroidism type: acquired Type 2 diabetes mellitus with hyperglycemia, with long-term current use of insulin E11.65; Z79.4 Diabetes mellitus type: type 2 Diabetes mellitus terminal carman insulin use: with terminal carman use Diabetes mellitus complication status: with hyperglycemia Essential hypertension I10 Hypertension type: essential hypertension Time Spent (min) 22 Assessment & Plan Assessment & Plan (1) Mild major depression: Code(s): F32.0 - Major depressive disorder, single episode, mild Category: Medical Plan: Continue mirtazapine. (2) Persistent headaches: Code(s): R51.9 - Headache, unspecified Category: Medical Plan: Follow-up with Neurology. (3) Hypothyroidism: Code(s): E03.9 - Hypothyroidism, unspecified Category: Medical Qualifiers: Hypothyroidism type: acquired Qualified Code(s): E03.9 - Hypothyroidism, unspecified Plan: Continue Synthroid. Follow-up with endocrinology. (4) Diabetes: Code(s): E11.9 - Type 2 diabetes mellitus without complications Category: Medical Qualifiers: Diabetes mellitus type: type 2 Diabetes mellitus mcfp insulin use: with mcfp use Diabetes mellitus complication status: with hyperglycemia Qualified Code(s): E11.65 - Type 2 diabetes mellitus with hyperglycemia; Z79.4 - terminal operator (current) use of insulin Plan: Continue insulin. A1c goal is equal or less than 7%. Follow-up with endocrinology. (5) Hypertension: Code(s): I10 - Essential (primary) hypertension Category: Medical Qualifiers: Hypertension type: essential hypertension Qualified Code(s): I10 - Essential (primary) hypertension Plan: Continue lisinopril. Blood pressure goal is equal or less than 130/80. Orders: Orders AMB Hemoglobin A1c Today E11.65 - Type 2 diabetes mellitus with hyperglycemia, Z79.4 - terminal operator (current) use of insulin Influenza [id number] Immunization Today Z23 - Encounter for immunization Medications: New Advair HFA 115-21 mcg/actuation (fluticasone propion-salmeterol) 2 puffs inhalation Q12H 12 grams 6RF 30 days NS J45.909 - Unspecified asthma, uncomplicated mirtazapine 30 mg PO BEDTIME 90 tabs 1RF 90 days trazodone 100 mg PO BEDTIME PRN 90 tabs 0RF sleep 90 days triamcinolone acetonide 0.025% 1 appl topical DAILY 15 grams 0RF 2 weeks
[2024-05-13 12:40] VITALS: BP 122/60; BMI 32.1
== END 2024-05-13 13:18 | disposition home or self-care (01) ==
PROVIDERS: PCP Internal Medicine; Visit Provider Internal Medicine
DX: E11.65 Type 2 diabetes mellitus with hyperglycemia (principal); F32.0 Major depressive disorder, single episode, mild; Z79.4 Long term (current) use of insulin; R51.9 Headache, unspecified; E03.9 Hypothyroidism, unspecified; I10 Essential (primary) hypertension; Z23 Encounter for immunization

== ENCOUNTER → 2024-05-13 12:34 | Outpatient (BNVA) | payer OTHER, SELFPAY | PROVIDERS: PCP Internal Medicine; Visit Provider Internal Medicine | DX: Z23 Encounter for immunization (principal); E11.65 Type 2 diabetes mellitus with hyperglycemia; F32.0 Major depressive disorder, single episode, mild; R51.9 Headache, unspecified; E03.9 Hypothyroidism, unspecified; I10 Essential (primary) hypertension; Z79.4 Long term (current) use of insulin | CPT/HCPCS: 83036; 90471; 90656; 99212 ==

== ENCOUNTER 2024-05-14 11:15 | Outpatient (AMB) | payer MEDICARE, SELFPAY ==
--- NOTE | 2024-05-14 11:16 | HO.NEPHOV_ITS ---
Vital Signs 05/14/24 11:18 Height 5 ft 4 in Weight 190 lb 6 oz BMI 32.7 BP 122/60 Blood Pressure Location Lt brachial Position Sitting Intake Visit Reasons: Hypertension/ 4 MO FU- LVM Purification Director Required: No Accompanied by: Self / Same As Patient Allergies codeine [CODEINE] Allergy (Intermediate, Verified 05/14/24 11:21) PRURITUS ibuprofen Allergy (Intermediate, Verified 05/14/24 11:21) stomach upset morphine [MORPHINE] Allergy (Intermediate, Verified 05/14/24 11:21) PRURITUS Penicillins [PENICILLINS] Allergy (Intermediate, Verified 05/14/24 11:21) SWELLING HPI Comments Details: Serenity was seen in the office for follow-up of her history of hypertension, microscopic hematuria and proteinuria. She, at times, has mild bilateral pedal edema. She does not have any shortness of breath, paroxysmal nocturnal dyspnea, orthopnea. She takes nonsteroidal anti-inflammatory medications but not on a regular basis. She has not had any urinary infection, microscopic hematuria, d izziness, chest pain. She sees a binman Dr. Soto who manages her heart rhythm. She is maintained on lisinopril. She had no new active complaints during this office visit. Her blood sugars are reasonably well controlled [facility] Medical History Physical exam Osteoarthritis, hip, bilateral Right hip pain Left hip pain Palpitations SVT (supraventricular tachycardia) B12 deficiency Leg edema Cognitive impairment Diabetic polyneuropathy Insomnia GERD (gastroesophageal reflux disease) High cholesterol Diabetes Hypothyroidism Hypertension Urge urinary incontinence Surgical History History of total abdominal hysterectomy Hx of bilateral breast biopsy Family History Father CVD (cardiovascular disease) Mother CVD (cardiovascular disease) Son No problems noted. Social History Housing: Apartment Alcohol intake: current Alcohol intake frequency: holidays/special occasions only Alcohol type: wine Patient Tobacco Use Status: Former Tobacco user Tobacco use type: Cigarette e-Cigarette/Vaping Use: Never Used Second Hand Smoke Exposure: No service: No Current occupational status: disabled Cognitive needs: Yes Hearing needs: No Vision needs: No Review of Systems Const All systems reviewed & are unremarkable except as noted in HPI and below Physical Exam Vital Signs: Last Vital Signs BP 122/60 05/14/24 11:18 BMI result Body Mass Index 32.7 Const General: comfortable and no acute distress Orientation/consciousness: patient oriented x3 HEENT Head: Yes normocephalic Mouth: Normal oral and palatal mucosa present Eyes EOM: EOMs intact bilaterally Neck Neck: Yes supple Resp Auscultation: clear to auscultation bilaterally Cardio Jugular venous distension: no JVD Rate: regular rate GI Palpation (GI): Soft to palpation Auscultation: normal bowel sounds General: Yes no CVA tenderness Back/Spine/Pelvis Back: no CVA tenderness Skin General skin exam: no rashes or lesions noted Neuro General: patient oriented x3 and moves all extremities Extrem General: Yes no pedal edema Results Reviewed Nephrology Results: 2 Sodium 141 mmol/L (135-145) 01/02/24 Potassium 4.3 mmol/L (3.3-5.1) 01/02/24 Chloride 108 mmol/L (96-108) 01/02/24 Carbon Dioxide 26 mmol/L (22-29) 01/02/24 BUN 12 mg/dL (9-16) 01/02/24 Creatinine 0.78 mg/dL (0.5-1.4) 01/02/24 Calcium 9.1 mg/dL (8.4-10.2) 01/02/24 Urine Protein 30 (1+) mg/dL (Neg-Trace) H 09/25/23 Urine Creatinine 197.49 mg/dL 01/02/24 Assessment & Plan Assessment & Plan (1) Hypertension: Code(s): I10 - Essential (primary) hypertension Category: Medical Qualifiers: Hypertension type: essential hypertension Qualified Code(s): I10 - Essential (primary) hypertension (2) Hematuria: Code(s): R31.9 - Hematuria, unspecified Category: Medical Plan Serenity has history of microscopic hematuria and proteinuria. She is on Marcio inhibitors. Her blood pressure is at goal. She has not had any macroscopic hematuria. Her renal functions have been stable. She needs to maintain her blood sugar at goal. She needs to lose more weight. She will be a candidate for Jardiance or Farxiga. I have ordered follow-up lab work. All her questions were answered. Orders: Orders UA and rflx microscopic Today I10 - Essential (primary) hypertension, R31.9 - Hematuria, unspecified Protein Creatinine Ratio, Ur Today I10 - Essential (primary) hypertension, R31.9 - Hematuria, unspecified Creatinine Today I10 - Essential (primary) hypertension, R31.9 - Hematuria, unspecified Blood Urea Nitrogen Today I10 - Essential (primary) hypertension, R31.9 - Hematuria, unspecified Electrolytes Today I10 - Essential (primary) hypertension, R31.9 - Hematuria, unspecified Coding Level of Care Code Est Pt Level 4 (36872) Diagnoses Essential hypertension I10 Hypertension type: essential hypertension Hematuria R31.9
[2024-05-14 11:18] VITALS: BP 122/60; BMI 32.7
== END 2024-05-14 11:41 | disposition home or self-care (01) ==
PROVIDERS: PCP Internal Medicine; Visit Provider Internal Medicine Nephrology
DX: I10 Essential (primary) hypertension (principal); R31.9 Hematuria, unspecified
CPT/HCPCS: 99214

== ENCOUNTER → 2024-05-14 11:15 | Outpatient (BNVA) | payer MEDICARE, SELFPAY | PROVIDERS: PCP Internal Medicine; Visit Provider Internal Medicine Nephrology | DX: I10 Essential (primary) hypertension (principal); R80.9 Proteinuria, unspecified; R31.9 Hematuria, unspecified | CPT/HCPCS: 99212 ==

== ENCOUNTER 2024-07-18 09:24 | Day surgery (SDC) | payer OTHER, SELFPAY ==
--- NOTE | ~2024-07-18 | FL_ITS ---
FLUOROSCOPIC GUIDED LUMBAR PUNCTURE INDICATION: Concern for pseudotumor cerebri TECHNIQUE: Risks and benefits and possible complications were discussed with the patient and the consent form was signed. Patient was placed prone on the fluoroscopy table. The back was prepped and draped in routine sterile fashion. Betadine was used as a skin antiseptic. Utilizing fluoroscopic guidance, the L5-S1 level was accessed with a 22 gauge Hseyla spinal needle and clear CSF fluid obtained. Opening pressure was 7 cm H2O. 4 cc of fluid was sent for analysis. The needle was removed without immediate complications. Total fluoroscopy time: 1 minute 23 seconds FL/FL guided lumbar puncture LP IMPRESSION: Successful fluoroscopic guided lumbar puncture at L5-S1. Opening pressure was 7 cm H2O. This procedure was performed by Paulino Padilla PA-C and supervised by Dr. Hanson. Electronically signed by: Santiago Hanson MD 07/22/2024 11:00 [place] [facility] [place]
[2024-07-18 09:52] LABS: Glucose, Whole Blood 102 mg/dL (60-115)
[2024-07-18 09:57] VITALS: BMI 34.2
[2024-07-18 10:23] VITALS: BP 127/65; PULSE 55; RESP 16; TEMP 36.5; O2SAT 98
[2024-07-18 11:50] VITALS: BP 136/48; PULSE 53; RESP 18; TEMP 36.6; O2SAT 98
[2024-07-18 12:05] VITALS: BP 152/67; PULSE 54; RESP 16; O2SAT 98
[2024-07-18 12:20] VITALS: BP 138/55; PULSE 54; RESP 16; O2SAT 98
[2024-07-18 12:35] VITALS: BP 137/61; PULSE 54; RESP 16; O2SAT 98
[2024-07-18 12:36] LABS: CSF Appearance Clear, Colorless; CSF Tube # 1
[2024-07-18 12:50] VITALS: BP 136/58; PULSE 55; RESP 16; TEMP 36.6; O2SAT 98
[2024-07-18 13:00] LABS: Glucose CSF 71 mg/dL; Total Protein CSF 32.6 mg/dL (15-45)
[2024-07-18 13:46] LABS: Appearance CSF CLEAR; CSF Tube # 1; Color CSF COLORLESS; Red Blood Cell CSF 4 MM*3; White Blood Cell CSF 1 MM*3
[2024-07-18 13:47] LABS: CSF Monos 30 %; Lymphocytes CSF 70 %
== END 2024-07-18 12:58 | disposition home or self-care (01) ==
PROVIDERS: Physician Assistant Surgical; PCP Internal Medicine; Visit Provider Psychiatry & Neurology Neurology
PROC: 009U3ZZ Drainage of Spinal Canal, Percutaneous Approach (ICD-10-PCS; CPT 62270; principal; 2024-07-18 11:00)
DX: G93.2 Benign intracranial hypertension (principal); G31.84 Mild cognitive impairment of uncertain or unknown etiology; E11.42 Type 2 diabetes mellitus with diabetic polyneuropathy; R55 Syncope and collapse; E78.00 Pure hypercholesterolemia, unspecified; K21.9 Gastro-esophageal reflux disease without esophagitis; M79.7 Fibromyalgia; E03.9 Hypothyroidism, unspecified; Z79.4 Long term (current) use of insulin; Z79.82 Long term (current) use of aspirin; Z79.899 Other long term (current) drug therapy; Z88.0 Allergy status to penicillin; Z88.5 Allergy status to narcotic agent; Z87.891 Personal history of nicotine dependence
CPT/HCPCS: 62328; 82945; 82947; 84157; 87015; 87070; 87116; 87205; 87206; 89051; J2003

== ENCOUNTER → 2024-07-18 11:00 | Outpatient (BNV) | payer OTHER, SELFPAY | PROVIDERS: PCP Internal Medicine; Visit Provider Physician Assistant Surgical | DX: G93.2 Benign intracranial hypertension (principal) | CPT/HCPCS: 62328 ==

== ENCOUNTER 2024-09-02 08:45 | Outpatient (AMB) | payer OTHER, SELFPAY ==
--- NOTE | 2024-09-02 08:49 | MHC.PC.OV ---
Vital Signs 09/02/24 09:03 Height 5 ft 4 in Weight 183 lb BMI 31.4 BP 130/80 Blood Pressure Location Lt brachial Position Sitting Intake Visit Reasons: follow up Intake Note: Patient here for a follow up DM Junior Php Developer Required: Yes Junior Php Developer Language: Medical Liaison Name: Nori Parra MD Accompanied by: Self / Same As Patient Allergies codeine [CODEINE] Allergy (Intermediate, Verified 09/02/24 09:11) PRURITUS ibuprofen Allergy (Intermediate, Verified 09/02/24 09:11) stomach upset morphine [MORPHINE] Allergy (Intermediate, Verified 09/02/24 09:11) PRURITUS Penicillins [PENICILLINS] Allergy (Intermediate, Verified 09/02/24 09:11) SWELLING Medication List - Last Reconciled 09/02/24 by Nori Parra MD acetaminophen 500 mg PO Q6H PRN 30 days Advair HFA 115-21 mcg/actuation (fluticasone propion-salmeterol) 2 puffs inhalation Q12H 30 days NS albuterol sulfate 2.5 mg (3 mL) inhalation TID PRN 30 days alcohol swabs 0 pad topical aspirin 81 mg PO DAILY blood sugar diagnostic As directed blood-glucose meter As directed cetirizine 10 mg PO BID 30 days ezetimibe 10 mg PO DAILY 90 days flecainide 50 mg PO Q12H 30 days fluticasone propion-salmeterol 250-50 mcg/dose (Advair Diskus) 1 inh inhalation BID 30 days [hospital bed side table As directed] incontinence pad, liner, disp Use 1 pad three times a day insulin aspart U-100 units subcut insulin glargine (Lantus Solostar U-100 Insulin) 16 units (0.16 mL) subcut BEDTIME latex gloves (Latex Gloves, Large) As directed levothyroxine 100 mcg PO DAILY 90 days lisinopril 2.5 mg PO DAILY metoprolol succinate ER 25 mg PO DAILY mirtazapine 30 mg PO BEDTIME 90 days nebulizers (AeroEclipse II Nebulizer) As directed omeprazole 20 mg PO DAILY 90 days oxycodone 5 mg PO Q8H PRN 30 days pen needle, diabetic As directed pregabalin 200 mg PO DAILY rosuvastatin 40 mg PO DAILY 90 days trazodone 100 mg PO BEDTIME 90 days triamcinolone acetonide 0.025% 1 appl topical DAILY 2 weeks [wedge pillow As directed] [wipes As directed] Tobacco use date assessed: 09/02/24 Fall risk assessment: No Falls in past year Last assessed Fall Risk: 09/02/24 Dental Screening Dental Screen Date: 09/02/24 Did you have a dental visit in the last 12 months?: Yes Did you have a dental problem in the last 6 months where you did not have access to dental care?: No Was dental information given to patient?: Patient has dentist HPI HPI Comments History of Present Illness Details The patient is a 79-year-old female presenting with concerns related to the management of her chronic pain, specifically in regard to medication management with oxycodone. There is ongoing dialogue regarding the necessity and implications of signing a contract for oxycodone, implying previous or current use of this medication. The patient expressed uncertainty and potential reluctance regarding continuation or initiation of treatment. There was also mention of issues related to medication adherence or willingness to take medications as prescribed. No specifics were provided concerning the onset or a detailed history of the chronic pain itself, its progression, and previous interventions or encounters. She finally signed pain management contract today. She also has hypothyroidism, diabetes mellitus type 2 on long-term current use of insulin complicated by neuropathy follow by Endocrinology, hyperlipidemia and hypertension. Blood pressure well controlled. Last LDL within goal being less than 70. A1c of 7.4% today and this is follow by Endocrinology as well as hypothyroidism. She also complains of allergic rhinitis but declines seen an hospital housekeeper. Complains of headaches and was evaluated by Neurology which did a lumbar puncture which turned out to be normal and an EEG which turned out to be normal. She also has mild major depression and is follow by counseling and psychiatry still pending. [facility] Medical History (Updated 09/02/24 @ 09:55 by Nori Parra MD) Physical exam Osteoarthritis, hip, bilateral Right hip pain Left hip pain Palpitations SVT (supraventricular tachycardia) B12 deficiency Leg edema Cognitive impairment Diabetic polyneuropathy Insomnia GERD (gastroesophageal reflux disease) High cholesterol Diabetes Hypothyroidism Hypertension Urge urinary incontinence Surgical History History of total abdominal hysterectomy Hx of bilateral breast biopsy Family History (Updated 09/02/24 @ 09:18 by Nori Parra MD) Father CVD (cardiovascular disease) Mother CVD (cardiovascular disease) Son No problems noted. Son Renal cell cancer Social History Housing: Apartment Alcohol intake: current Alcohol intake frequency: holidays/special occasions only Alcohol type: wine Patient Tobacco Use Status: Former Tobacco user Tobacco use type: Cigarette e-Cigarette/Vaping Use: Never Used Second Hand Smoke Exposure: No service: No Current occupational status: disabled Cognitive needs: Yes Hearing needs: No Vision needs: No Questionnaire PHQ-9 Over the last 2 weeks, how often have you been bothered by any of the following problems? 1. Little interest or pleasure in doing things: not at all 2. Feeling down, depressed, or hopeless: several days 3. Trouble falling or staying asleep, or sleeping too much: several days 4. Feeling tired or having little energy: not at all 5. Poor appetite or overeating: not at all 6. Feeling bad about yourself - or that you are a failure or have let yourself or your family down: not at all 7. Trouble concentrating on things, such as reading the newspaper or watching television: not at all 8. Moving or speaking so slowly that other people could have noticed. Or the opposite - being so fidgety or restless that you have been moving around a lot more than usual: not at all 9. Thoughts that you would be better off or of hurting yourself in some way: not at all Total score: 2 Depression Screening Interpretation: Positive Depression Screening Follow-up: Existing condition, In treatment, Community Mental Health Worker F/U and Follow-up Visit Requested Depression Screening Done: Yes 48031 - PHQ-9 Billing: Yes Source: Developed by Drs. Anil Jimenes, Rain Becerra, Byron Carmona and colleagues, with an educational jammie from [employer]. Thrive Questionnaire Date Thrive assessed: 09/02/24 I am a: Patient What is your living situation today?: I have a steady place to live Within the past 12 months, did the food you bought not last and you didn't have the money to get more?: Never true Within the past 12 months, did you worry whether your food would run out before you got money to buy more?: Never true Do you have trouble paying for medicines?: No Do you have trouble getting transportation to medical appointments?: No Do you have trouble paying your heating and electricity bill?: No Do you have trouble taking care of your child, family member or friend?: No Do you have trouble with day-to-day activities such as bathing, preparing meals, shopping, managing finances, etc.?: No Are you currently unemployed and looking for a job?: No Are you interested in more education?: No Please select the resources that you would like help with: None Currently or been in a relationship where the following occur: No concerns reported THRIVE Score: 0 AUDIT C Alcohol Use Questionnaire (AUDIT-C) 1. How often do you have a drink containing alcohol?: Monthly or less 2. How many drinks containing alcohol do you have on a typical day when you are drinking?: 1 or 2 3. How often do you have six or more drinks on one occasion?: Never Total Score: 1 Score Reviewed/Action Taken: No CLAU-7 AMB Questionnaire CLAU-7 Date CLAU - 7 assessed: 09/02/24 Feeling nervous, anxious, or on edge: 1 = Several days Not being able to stop or control worryin = Several days Worrying too much about different things: 1 = Several days Trouble relaxin = Not at all Being so restless that it is hard to sit still: 0 = Not at all Becoming easily annoyed or irritable: 0 = Not at all Feeling afraid as if something awful might happen: 1 = Several days Total CLAU-7 score (0-4 normal; 5-9 mild; 10-14 moderate; 15-21 severe): 4 Source: Developed by Drs. Ainl Jimenes, Rain Becerra, Byron Carmona and colleagues, with an educational jammie from [employer]. CLAU-7 Assessment Billing CLAU-7 Assessment Tool: CLAU-7 Assessment 00119 Review of Systems Const All systems reviewed & are unremarkable except as noted in HPI and below Card Denies chest pain at rest, Denies chest pain with activity, Denies edema, Denies irregular heart rhythm, Denies claudication, Denies dyspnea, Denies dyspnea on exertion, Denies orthopnea, Denies paroxysmal nocturnal dyspnea and Denies slow heart rate Resp Denies cough, Denies dyspnea and Denies dyspnea on exertion GI Denies abdominal pain, Denies change in bowel habits, Denies excessive flatus, Denies nausea and Denies vomiting Physical exam (Primary Care) Vital Signs: Last Vital Signs BP 130/80 09/02/24 09:03 BMI result Body Mass Index 31.4 BMI Assessment/Plan discussion: High BMI High, discussed plan: lifestyle, weight reduction, dietary and physical activity Tobacco/Smoking Status: Tobacco use Status Tobacco use date assessed 09/02/24 09/02/24 09:07 Patient Tobacco Use Status Former Tobacco user 09/02/24 08:54 Tobacco use type Cigarette 09/02/24 08:54 e-Cigarette/Vaping Use Never Used 09/02/24 08:54 PHQ-9: PHQ-9 Score PHQ-9: Total score 2 09/02/24 09:31 Depression Screening Interpretation: Positive Depression Screening Follow-up: Existing condition, In treatment, Community Mental Health Worker F/U and Follow-up Visit Requested Thrive Assessment: Date of Thrive Assessment Date Thrive assessed 09/02/24 09/02/24 08:54 Currently or been in a relationship where the following occur: No concerns reported Const Limitations: ambulation with cane Resp Effort & Inspection: normal respiratory effort Auscultation: clear to auscultation bilaterally Cardio Jugular venous distension: no JVD Rate: regular rate Rhythm: regular rhythm Heart sounds: S1 normal heart sound present and S2 normal heart sound present Extrem General: Yes full ROM Results AMB Hemoglobin A1c AMB Hemoglobin A1c 7.4 % Last Edit by ADDISON Pearce on 09/02/24 09:08 Results Reviewed Results Reviewed: Laboratory Last Values Hgb A1c (Clinic) 7.4 % (4.0-6.0) H 09/02/24 08:49 Coding Level of Care Code Est Pt Level 4 (37844) Complex EM visit Add On G2211 Diagnoses Degeneration of intervertebral disc of lumbar region with discogenic back pain M51.360 Disc-related pain type: discogenic back pain only Mild major depression F32.0 Diabetic polyneuropathy associated with type 2 diabetes mellitus E11.42 Diabetes mellitus type: type 2 Acquired hypothyroidism E03.9 Hypothyroidism type: acquired Essential hypertension I10 Hypertension type: essential hypertension Hyperlipidemia LDL goal <70 E78.5 Additional Codes CLAU-7 Assessment Billing - CLAU-7 Assessment Tool: CLAU-7 Assessment 49529 ([id number]) PHQ-9 - 16226 - PHQ-9 Billing: Yes ([id number]) Time Spent (min) 23 Assessment & Plan Assessment & Plan (1) Lumbar degenerative disc disease: Comment: Pain management contract signed 09/02/24 Code(s): M51.36 - Other intervertebral disc degeneration, lumbar region Category: Medical Qualifiers: Disc-related pain type: discogenic back pain only Qualified Code(s): M51.360 - Other intervertebral disc degeneration, lumbar region with discogenic back pain only (2) Mild major depression: Code(s): F32.0 - Major depressive disorder, single episode, mild Category: Medical (3) Diabetic polyneuropathy: Code(s): E11.42 - Type 2 diabetes mellitus with diabetic polyneuropathy Category: Medical Qualifiers: Diabetes mellitus type: type 2 Qualified Code(s): E11.42 - Type 2 diabetes mellitus with diabetic polyneuropathy (4) Hypothyroidism: Code(s): E03.9 - Hypothyroidism, unspecified Category: Medical Qualifiers: Hypothyroidism type: acquired Qualified Code(s): E03.9 - Hypothyroidism, unspecified (5) Hypertension: Code(s): I10 - Essential (primary) hypertension Category: Medical Qualifiers: Hypertension type: essential hypertension Qualified Code(s): I10 - Essential (primary) hypertension (6) Hyperlipidemia LDL goal <70: Code(s): E78.5 - Hyperlipidemia, unspecified Category: Medical Plan - Continue to explore and address the patient's concerns regarding chronic pain management. - Discussion regarding the patient's medication, particularly the use of oxycodone, and any necessary agreements or contracts. - Monitor the patient's response to medication management strategies. - Consideration of alternative pain management strategies if warranted. Patient was informed and verbally consented to the use of an ambient scribe for clinic note documentation during this visit. During the conversation, we discussed the management of the patient's chronic pain with a focus on the potential use of oxycodone. I explained the importance of adherence to prescribed medication plans and the considerations around signing a medication contract. Emphasis was placed on ensuring patient understanding and agreement for any therapeutic plans, highlighting possible alternatives and the necessity for compliance with outlined regimens. Risks, benefits, and alternatives of continued oxycodone usage were discussed to ensure informed decision-making by the patient. Orders: Orders AMB Hemoglobin A1c Today E11.65 - Type 2 diabetes mellitus with hyperglycemia, Z79.4 - terminal manager (current) use of insulin Patient Instructions: - Review and consider the terms of the medication contract before signing. - Follow the prescribed medication regimen as discussed. - Report any concerns or adverse effects from medications promptly. - Consider and discuss any alternative pain management strategies if desired. - Ensure all medications taken are communicated for integrated care management.
[2024-09-02 09:03] VITALS: BP 130/80; BMI 31.4
--- OUTSIDE RECORDS SUMMARY | 2024-09-02 09:06 | XMS_ITS | Encounter Summary ---
Author Organization [employer] Address [address] [place] [address] [address] [place] [address] Care Team Providers Care Office Admin Name Role Phone Unavailable Primary Care Provider Unavailabl e Encounter Details Date Type Department Care Team (Latest Contact Info) Description 02/09/2022 Abstract [facility] Dental, Provider, DDS Social History Tobacco Use Types Packs/Day Years Used Date Smoking Tobacco: Never Assessed Comments Unknown Sex and Gender Information Value Date Recorded Sex Assigned at Female 06/05/2022 10:16 AM EDT Legal Sex Female 10:16 AM EDT Gender Identity Female 06/05/2022 10:16 AM EDT Sexual Orientation Straight 06/05/2022 10 :16 AM EDT documented as of this encounter Plan of Treatment Not on file documented as of this encounter Visit Diagnoses Not on filedocumented in this encounter
--- OUTSIDE RECORDS SUMMARY | 2024-09-02 09:06 | XMS_ITS | Clinical Summary ---
Author Organization [employer] Address [address] [place] [address] [address] [place] [address] Care Team Providers Care Senior It Project Manager Name Role Phone Unavailable Primary Care Provider Unavailabl e Allergies Active Allergy Reactions Criticality Noted Date Comments Menadiol Sodium Diphosphate Diarrhea 09/05/19 23 Diarrhea and stomach pain Hydrochlorothiazide Other 09/05/2022 Pt reports that this medicine gives her pain in her back, possibly from kidney Ibuprofen Diarrhea Medium 09/05/2022 Diarrhea and stomach pain Morphine Itching,Rash Low 09/05/2022 Penicillins Angioedema 09/05/2022 Medications albuterol (2.5 MG/3ML) 0.083% nebulizer solution 08/21/2022 Active Aspirin Low Dose 81 MG EC tablet 08/15/2022 Active cetirizine (ZyrTEC) 10 MG tablet 08/15/2022 Active SM Sleep Aid 25 MG tablet Take 50 mg by mouth at bedtime. 08/15/2022 Active flecainide (Tambocor) 50 MG tablet 08/15/2022 Active NovoLOG FLEXPEN 100 UNIT/ML pen 08/01/2022 Act treva Lantus SoloStar 100 UNIT/ML pen 08/21/2022 Act treva levothyroxine (Synthroid, Levoxyl) 88 MCG tablet 08/15/2022 Active lisinopril 2.5 MG tablet 08/15/2022 Active loratadine (Claritin) 10 MG tablet Take 1 tablet by mouth. Active meclizine (Antivert) 25 MG tablet 06/22/2022 Active melatonin 5 MG tablet Take 2 tablets by mouth at bedtime. 08/16/2022 Active metoprolol succinate XL (Toprol-XL) 50 MG 24 hr tablet Take 1 tablet by mouth. 11/05/2020 Active mirtazapine (Remeron) 30 MG tablet Take 30 mg by mouth if needed at bedtime. 08/16/2022 Active omeprazole (PriLOSEC) [address] capsule 08/15/2022 Activ e oxyCODONE-aceta minophen (Percocet) 5-325 MG tablet 08/21/2022 Act treva pregabalin (Lyrica) 200 MG capsule 08/15/2022 Active rosuvastatin (Crestor) 40 MG tablet 08/15/2022 Active traZODone (Desyrel) 50 MG tablet 08/15/2022 Active Active Problems Problem Noted Date Diagnosed Date Fractured tooth due to trauma without complicati on, sequela 03/26/2024 Ill-fitting dentures 03/26/2024 Partially edentulous mandible 11/27/2023 Missing teeth, acquired 07/05/2023 Generalized gingival recession 03/28/2023 Periodontal disease 09/05/2022 Gingival recession, localized 09/05/2022 Dental calculus 09/05/2022 Encounters Date Type Department Care Team Description 08/26/2024 Telephone [facility] ADULT DENTAL [address] [place], [place] [phone] Neymar Stewart DDS from Last 3 Months Social History Tobacco Use Types Packs/Day Years Used Date Smoking Tobacco: Former Cigarettes Passive Smoke Exposure: Never Smokeless Tobacco: Never Tobacco Cessation:Counseling Given: Not Answered Alcohol Use Standard Drinks/Week Comments Defer 0 (1 standard drink = 0.6 oz pur e alcohol) Comments Unknown Sex and Gender Information Value Date Recorded Sex Assigned at Female 06/05/2022 10:16 AM EDT Legal Sex Female 10:16 AM EDT Gender Identity Female 06/05/2022 10:16 AM EDT Sexual Orientation Straight 06/05/2022 10 :16 AM EDT Last Filed Vital Signs Vital Sign Reading Time Taken Comments Blood Pressure 126/76 03/26/2024 2:06 PM EDT Pulse 74 03/26/2024 2:06 PM EDT Temperature - - Respiratory Rate - - Oxygen Saturation - - Inhaled Oxygen Concentration - - Weight - - Height - - Body Mass Index - - Plan of Treatment Health Maintenance Due Date Last Done Comments Depression Screening 1945 Lipid Panel 1945 SDOH Screening 1945 Alcohol/Substance Use Screening 1958 Hepatitis C Screening 1964 DTaP/Tdap/Td Vaccines (1 - Tdap) 1965 Zoster Vaccines (2 of 3) 03/27/2013 01/30/2013 Pneumococcal Vaccine: 65+ Years (2 of 2 - PCV) 11/10/2014 11/10/2013 RSV Patients and Patients Aged 60 years or older (1 - 1-dose 75+ series) 2021 Dental Oral Exam 09/29/2023 03/28/2023 Dental Prophylaxis 09/29/2023 03/28/2023, 09/05/2022 Dental X-Ray: Bitewings 03/29/2024 03/28/2023 COVID-19 Vaccine ( season) 2024 02/15/2022, 06/08/2021, 11/12/2020, Additional history exists Tobacco Screening 03/26/2025 03/26/2024 Dental X-Ray: Full Mouth 03/29/2026 03/28/2023 Influenza Vaccine Completed 05/13/2024, 04/12/2012 HIB Vaccines Aged Out No longer eligi ble based on patient's age to complete this topic HPV Vaccines Aged Out No longer eligi ble based on patient's age to complete this topic Hepatitis A Vaccines Aged Out No long er eligible based on patient's age to complete this topic Hepatitis B Vaccines Aged Out No long er eligible based on patient's age to complete this topic IPV Vaccines Aged Out No longer eligi ble based on patient's age to complete this topic Meningococcal Vaccine Aged Out No claude linda eligible based on patient's age to complete this topic RSV under 20 months Aged Out No longe r eligible based on patient's age to complete this topic Rotavirus Vaccines Aged Out No longer eligible based on patient's age to complete this topic Procedures Procedure Name Priority Date/Time Associated Diagnosis Comments Full PROPHYLAXIS - ADULT Routine 023 2:30 PM EDT DIAGNOSTIC - DIAGNOSTIC IMAGING - INTRAORAL - COMPREHENSIVE SERIES OF RADIOGRAPHIC IMAGES Routine 03/28/2023 2:30 PM EDT PERIODIC ORAL EVALUATION - ESTABLISHED PATIENT Routine 03/28/2023 2:30 PM EDT from Last 3 Months or Most Recently Relevant to Health Maintenance Insurance [facility]
--- OUTSIDE RECORDS SUMMARY | 2024-09-02 09:06 | XMS_ITS | Encounter Summary ---
Author Organization [employer] Address [address] [facility] [address] [place] [address] Care Team Providers Care Deli Cutter Slicer Name Role Phone Unavailable Primary Care Provider Unavailabl e Encounter Details Date Type Department Care Team (Late st Contact Info) Description 08/26/2024 Telephone [facility] ADULT DENTAL [address] [place], [place] [phone] Neymar Stewart DDS [address] [place], [place] [phone] Social History Tobacco Use Types Packs/Day Years Used Date Smoking Tobacco: Former Cigarettes Passive Smoke Exposure: Never Smokeless Tobacco: Never Alcohol Use Standard Drinks/Week Comments Defer 0 (1 standard drink = 0.6 oz pur e alcohol) Comments Unknown Sex and Gender Information Value Date Recorded Sex Assigned at Female 06/05/2022 10:16 AM EDT Legal Sex Female 10:16 AM EDT Gender Identity Female 06/05/2022 10:16 AM EDT Sexual Orientation Straight 06/05/2022 10 :16 AM EDT documented as of this encounter Miscellaneous Notes * Telephone Encounter - Garret Grissom - 08/26/2024 9:53 AM EST Spoke with patient, she would not like to reschedule at this time. Appt has been cancelled 3x. documented in this encounter Plan of Treatment Not on file documented as of this encounter Visit Diagnoses Not on filedocumented in this encounter
--- OUTSIDE RECORDS SUMMARY | 2024-09-02 09:06 | XMS_ITS | Encounter Summary ---
Author Organization [employer] [facility] Address [address] [place] [address] [address] [place] [address] Care Team Providers Care Psychiatric Social Worker Supervisor Name Role Phone Unavailable Primary Care Provider Unavailabl e Reason for Visit * Reason Onset Date Comments Prior Authorization 09/27/2022 Serenity woodward 1945 Patient called and and want to know if prior authorization can be sent out this year for dentures because on prior authorization was max out. Patient was seen on 09/05 for prophy exam and xrays. Please advise Encounter Details Date Type Department Care Team (Late st Contact Info) Description 09/27/2022 Telephone [facility] ADULT DENT[facility] [address] [place], [place] [phone] Neymar Stewart DDS [address] [place], [place] [phone] Prior Authorization (Serenity Terry 1945 Patient called and and want to know if prior authorization can be sent out this year for dentures because on prior authorization was max out. Patient was seen on 09/05 for prophy exam and xrays. Please advise ) Social History Tobacco Use Types Packs/Day Years Used Date Smoking Tobacco: Former Cigarettes Passive Smoke Exposure: Never Smokeless Tobacco: Never Comments Unknown Sex and Gender Information Value Date Recorded Sex Assigned at Female 06/05/2022 10:16 AM EDT Legal Sex Female 10:16 AM EDT Gender Identity Female 06/05/2022 10:16 AM EDT Sexual Orientation Straight 06/05/2022 10 :16 AM EDT COVID-19 Exposure Response Date Recorded In the last 10 days, have yo u been in contact with someone who was confirmed or suspected to have Coronavirus/COVID-19? No / Unsure 09/05/2022 10:43 AM EST documented as of this encounter Miscellaneous Notes * Telephone Encounter - Peggy Bray - 09/27/2022 2:41 PM EST Serenity Terry 1945 Patient called and and want to know if prior authorization can be sent out this year for dentures because on prior authorization was max out. Patient was seenon 09/05 for prophy exam and xrays. Please advise documented in this encounter Plan of Treatment Not on file documented as of this encounter Visit Diagnoses Not on filedocumented in this encounter
--- OUTSIDE RECORDS SUMMARY | 2024-09-02 09:06 | XMS_ITS | Encounter Summary ---
Author Organization [facility] Address [address] [place] [address] 7t [place] [address] Care Team Providers Care Manager Mba Name Role Phone Unavailable Primary Care Provider Unavailabl e Reason for Visit * Reason Comments Filling Encounter Details Date Type Department Care Team (Late st Contact Info) Description 03/26/2024 2:00 PM EDT Office Visit [facility] ADULT DENTAL [address] [place] [address] Neymar [place] DDS [address] [place] [address] Fractured tooth due to trauma without complication, sequela (Primary Dx); Ill-fitting dentures Social History Tobacco Use Types Packs/Day Years [...] AM EDT documented as of this encounter Last Filed Vital Signs Vital Sign Reading Time Taken Comments Blood Pressure 126/76 03/26/2024 2:06 PM EDT Pulse 74 03/26/2024 2:06 PM EDT Temperature - - Respiratory Rate - - Oxygen Saturation - - Inhaled Oxygen Concentration - - Weight - - Height - - Body Mass Index - - documented in this encounter Progress Notes * Neymar [place] DDS - 03/26/2024 2:00 PM EDT Patient ID: Serenity Terry is a 78 y.o. female. Time Out: Timeout Date: 03/26/24, Timeout Time: 1403 Location: [facility] Tooth: #24 and #25 Procedure: Sabianist Verified the above with patient, human resources benefits assistant, and provider. Confirmed via patient's chart, intraorally and by radiographs. Equipment Validation Specialist: not applicable Chief Complaint Patient presents with Filling Medical Hx: Vitals: Blood pressure 126/76, pulse 74. Medications, Med Hx reviewed with patient and updated in chart. Consent Obtained: The risks, benefits, indications, potential complications, and alternatives were explained to the patient and informed consent was obtained with good understanding. Treatment Provided: Dental procedures in this visit D2330 - RESIN-BASED COMPOSITE - 1 SURFACE, ANTERIOR 25 I (Completed) Service provider: Neymar [place] DDS Billing provider: Neymar [place] DDS D2330 - RESIN-BASED COMPOSITE - 1 SURFACE, ANTERIOR 24 I (Completed) Service provider: Neymar [place] DDS [place] provider: Neymar [place] DDS D5422 - ADJUST PARTIAL DENTURE - MANDIBULAR (Completed) Service provider: Neymar [place] DDS [place] provider: Neymar [place] DDS D5421 - ADJUST PARTIAL DENTURE - MAXILLARY (Completed) Service provider: Neymar [place] DDS [place] provider: Neymar [place] DDS D9450 - CASE PRESENTATION, DETAILED AND EXTENSIVE TREATMENT PLANNING (Completed) Service provider: Neymar [place] DDS Billing provider: Neymar [place] DDS Diagnosis: Enamel fracture, Ill- fitting partials Topical: 20% Benzocaine ONLY Anesthesia: N/A Number of Cartridges: N/A Injection Type: N/A Confirmed profound anesthesia. Isolation: high speed suction, cotton rolls, and cheek guard Prep: Preparation finalized Matrix: Mylar Strip and wedge Etch: 37% Phosphoric Acid Etch Desensitizer: Gluma Liner/Base: None Su: I-Su Sabianist Material: Filtek [place] Flowable Composite Shade: A3.5 Polished. Occlusion & contacts verified. Patient satisfied with comfort and esthetics. Serenity was advised about resin composite fragility, avoiding hard food with anterior teeth, using N.G. would help prolong life of pre conditioned restorations. Patient tolerated procedure well. Post-operative instructions were given. Patient departed alert, oriented, and in stable condition. NV: F/Up as needed / 6 mos recall Cellar Hand: Amna Marrero Dentist: Neymar [place] DDS documented in this encounter Plan of Treatment Not on file documented as of this encounter Procedures Procedure Name Priority Date/Time Associated Diagnosis Comments 24 I RESTORATIVE - RESIN-BASED COMPOSITE RESTORATIONS - DIRECT - RESIN-BASED COMPOSITE - ONE SURFACE, ANTERIOR Routine 03/26/2024 2:00 PM EDT 25 I RESTORATIVE - RESIN-BASED COMPOSITE RESTORATIONS - DIRECT - RESIN-BASED COMPOSITE - ONE SURFACE, ANTERIOR Routine 03/26/2024 2:00 PM EDT ADJUNCTIVE GENERAL SERVICES - PROFESSIONAL VISITS - CASE PRESENTATION, SUBSEQUENT TO DETAILED AND EXTENSIVE TREATMENT PLANNING Routine 03/26/2024 2:00 PM EDT ADJUST PARTIAL DENTURE - MAXILLARY Routine 03/26/2024 2:00 PM EDT ADJUST PARTIAL DENTURE - MANDIBULAR Routine 03/26/2024 2:00 PM EDT documented in this encounter Visit Diagnoses Diagnosis Fractured tooth due to trauma without complication, sequela- Primary Ill-fitting dentures documented in this encounter
--- OUTSIDE RECORDS SUMMARY | 2024-09-02 09:06 | XMS_ITS | Encounter Summary ---
Author Organization [employer] Address [address] [place] [address] 7t [place] [address] Care Team Providers Care Plate Developer Name Role Phone Unavailable Primary Care Provider Unavailabl e Reason for Visit * Reason Onset Date Comments new appt 05/16/2023 Encounter Details Date Type Department Care Team (Late st Contact Info) Description 05/16/2023 Telephone [facility] ADULT DENTAL [address] [place] [address] Neymar [place] DDS [address] [place], [place] [phone] new appt Social History Tobacco Use Types Packs/Day Years [...] encounter Miscellaneous Notes * Telephone Encounter - Patt Moseley - 05/16/2023 1:37 PM EDT Patient is unable to attend her 1:30 appt today due to insurance transportation not picking her up.She needs a new appt date documented in this encounter Plan of Treatment Not on file documented as of this encounter Visit Diagnoses Not on filedocumented in this encounter
--- OUTSIDE RECORDS SUMMARY | 2024-09-02 09:06 | XMS_ITS | Encounter Summary ---
Author Organization [employer] Address [address] [place] [address] 7t [place] [address] Care Team Providers Care Obstetrics Nurse Name Role Phone Unavailable Primary Care Provider Unavailabl e Encounter Details Date Type Department Care Team (Latest Contact Info) Description 07/24/2019 Abstract [facility] CONVERSIONS Dental, Provider, DDS Social History [...]
--- OUTSIDE RECORDS SUMMARY | 2024-09-02 09:06 | XMS_ITS | Clinical Summary ---
Author Organization [facility] Address [address] [place] [address] [facility] [place] [address] Phone Care Team Providers Care Community Health Outreach Worker Name Role Phone Nori Fay MD Primary Care Provider [phone] Allergies Active Allergy Reactions Criticality Noted Date Comments Acetaminophen Other (see comments) 11/17/2020 Codeine Other (see comments) 11/17/2020 Fentanyl Other (see comments) 11/17/2020 Hydrochlorothiazide Other (see comments) 2020 Oxaprozin Other (see comments) 11/17/2020 Oxycodone Other (see comments) 11/17/2020 Penicillin V Other (see comments) 11/17/2020 Medications zaleplon (SONATA) 10 MG capsule Take 1 capsule by mouth at bed time Active aspirin (ST NICOLE) 81 MG EC tablet Take 1 tablet by mouth 1 (one) time each day Active buPROPion (WELLBUTRIN) 100 MG tablet Take 2 tablets by mouth 1 (one) time each day Active Cholecalciferol 50 MCG (1999 UT) capsule Take 1 capsule by mouth 2 (two) times a day Active clonazePAM (KlonoPIN) 1 MG tablet Take 1 tablet by mouth 3 (three) times a day Active fluticasone (FLONASE) 50 MCG/ACT nasal spray Administer 2 sprays into each nostril 1 (one) time each day Active insulin glargine (Lantus) 100 UNIT/ML injection Active insulin lispro (HumaLOG) 100 UNIT/ML injection Active levothyroxine (SYNTHROID, LEVOTHROID) 88 MCG tablet Take 1 tablet by mouth 1 (one) time each day Active lisinopril (PRINIVIL,ZESTR IL) 5 MG tablet Take 1 tablet by mouth 1 (one) time each day Active loratadine (CLARITIN) 10 MG tablet Take 1 tablet by mouth 1 (one) time each day Active mometasone (NASONEX) 50 MCG/ACT nasal spray Administer 2 sprays into each nostril 1 (one) time each day Active omeprazole (PriLOSEC) [address] capsule Take 1 capsule by mouth 1 (one) time each day Active pregabalin (LYRICA) 200 MG capsule Take 1 capsule by mouth 3 (three) times a day Active rosuvastatin (CRESTOR) 10 MG tablet Take 1 tablet by mouth 1 (one) time each day Active torsemide (DEMADEX) 10 MG tablet Take 1 tablet by mouth 3 (three) times a week Active traZODone (DESYREL) 50 MG tablet Take 1 tablet by mouth every night 1 Active cyanocobalamin (VITAMIN B-12) 1000 MCG tablet Take 1 tablet by mouth 1 (one) time each day 1 Active cetirizine (ZyrTEC) 10 MG tablet Take 1 tablet by mouth 1 (one) time each day 1 Active metoprolol succinate XL (TOPROL-XL) 50 MG 24 hr tablet Take 1 tablet by mouth 1 (one) time each day 1 Active Melatonin Maximum Strength 5 MG tablet 1 Active NovoLOG FLEXPEN 100 UNIT/ML injection 1 Active flecainide (TAMBOCOR) 50 MG tablet Take 1 tablet by mouth 1 (one) time each day Active Active Problems Problem Noted Date Diagnosed Date Hypertension 06/01/2021 Benign essential hypertension 11/17/2020 Edema 11/17/2020 Microscopic hematuria 11/17/2020 Immunizations Name Administration Dates Next Due Pneumococcal Polysaccharide 11/10/2013 Family History Medical History Relation Comments Hypertension Child 1 Diabetes Child 2 Hypertension Father Diabetes Mother Heart disease Mother Hypertension Mother Stroke Mother Heart disease Sibling 1 Diabetes Sibling 2 Hypertension Sibling 3 Relation Status Comments Child 1 Child 2 Father Mother Sibling 1 Sibling 2 Sibling 3 Social History Tobacco Use Types Packs/Day Years Used Date Smoking Tobacco: Former Smokeless Tobacco: Never Tobacco Cessation:Counseling Given: Not Answered Alcohol Use Standard Drinks/Week Comments Yes 0 (1 standard drink = 0.6 oz pure alcohol) Alcoholic Drinks/day: Occasional social drink Comments Unknown Sex and Gender Information Value Date Recorded Sex Assigned at Not on file Legal Sex Female 5:06 PM EST Gender Identity Not on file Sexual Orientation Not on file Last Filed Vital Signs Vital Sign Reading Time Taken Comments Blood Pressure 110/60 06/07/2022 1:54 PM EDT Pulse 55 06/07/2022 1:54 PM EDT Temperature - - Respiratory Rate - - Oxygen Saturation 96% 06/01/2021 1:28 PM EDT Inhaled Oxygen Concentration - - Weight 90.1 kg (198 lb 9.6 oz) 06/07/2022 1:54 P M EDT Height 162.6 cm (5' 4 ) 12/10/2019 12:00 PM EDT Body Mass Index 34.09 12/10/2019 12:00 PM EDT Plan of Treatment Health Maintenance Due Date Last Done Comments Pneumococcal Vaccine: 65+ Ye ars (2 of 2 - PCV) 11/10/2014 11/10/2013 Influenza Vaccine (#1) 2024 Hepatitis B Vaccine Aged Out No longe r eligible based on patient's age to complete this topic Insurance ([id number]) [employer] [id number] [place] [address] ([id number]) [employer] [id number] Care Teams Community Health Outreach Worker Relationship Specialty Start Date End Date Nori Fay MD [address] [place] [address] PCP - General 08/16/20
== END 2024-09-02 09:35 | disposition home or self-care (01) ==
PROVIDERS: PCP Internal Medicine; Visit Provider Internal Medicine
DX: M51.360 Other intervertebral disc degeneration, lumbar region with discogenic back pain only (principal); F32.0 Major depressive disorder, single episode, mild; E11.42 Type 2 diabetes mellitus with diabetic polyneuropathy; E03.9 Hypothyroidism, unspecified; I10 Essential (primary) hypertension; E78.5 Hyperlipidemia, unspecified; E11.65 Type 2 diabetes mellitus with hyperglycemia; Z79.4 Long term (current) use of insulin

== ENCOUNTER → 2024-09-02 08:45 | Outpatient (BNVA) | payer OTHER, SELFPAY | PROVIDERS: PCP Internal Medicine; Visit Provider Internal Medicine | DX: M51.360 Other intervertebral disc degeneration, lumbar region with discogenic back pain only (principal); F32.0 Major depressive disorder, single episode, mild; E11.42 Type 2 diabetes mellitus with diabetic polyneuropathy; E03.9 Hypothyroidism, unspecified; E78.5 Hyperlipidemia, unspecified; I10 Essential (primary) hypertension | CPT/HCPCS: 83036; 96127; 99212 ==

== ENCOUNTER 2024-09-16 14:17 | Outpatient (AMB) | payer OTHER, SELFPAY ==
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
[2024-09-16 14:33] VITALS: BP 110/62; BMI 33.3
--- OUTSIDE RECORDS SUMMARY | 2024-09-16 15:14 | XMS_ITS | Encounter Summary ---
Author Organization [facility] Address [address] [place] [address] [address]t [place] [address] Care Team Providers Care Mathematical Statistician Name Role Phone Unavailable Primary Care Provider Unavailabl e Reason for Visit * Reason Comments Filling Encounter Details Date Type Department Care Team (Late st Contact Info) Description 03/26/2024 2:00 PM EDT Office Visit [facility] ADULT DENTAL [address] [place] [address] Neymar [place] DDS [address] [place] [address] Fractured tooth due to trauma without complication, [...] Timeout Date: 03/26/24, Timeout Time: 1403 Location: [facility] Tooth: #24 and #25 Procedure: Jew Verified the above with patient, research assistant professor, and provider. Confirmed via patient's chart, intraorally and by radiographs. Motor Rebuilder: not applicable Chief Complaint Patient presents with [...] Etch Desensitizer: Gluma Liner/Base: None Su: I-Su Jew Material: Filtek [place] Flowable Composite Shade: A3.5 Polished. Occlusion & contacts verified. Patient satisfied with comfort and esthetics. Serenity was advised about resin composite fragility, avoiding hard food with anterior teeth, using N.G. would help prolong life of pre conditioned restorations. Patient tolerated procedure well. Post-operative instructions were given. Patient departed alert, oriented, and in stable condition. NV: F/Up as needed / 6 mos recall Creel Operator: Amna Marrero Dentist: Neymar [place] DDS documented [...]
--- OUTSIDE RECORDS SUMMARY | 2024-09-16 15:14 | XMS_ITS | Clinical Summary ---
Author Organization [employer] Address [address] [place] [address] 7t [place] [address] Care Team Providers Care Sort Operations Supervisor Name Role Phone Unavailable Primary Care [...] Type Department Care Team Description 08/26/2024 Telephone [facility] ADULT DENTAL [address] [place], [place] [phone] Neymar [place] DDS from Last 3 Months [...] (2 of 3) 03/27/2013 01/30/2013 Pneumococcal Vaccine: 50+ Years (2 of 2 - PCV) 11/10/2014 [...] Most Recently Relevant to Health Maintenance Insurance [facility]
--- OUTSIDE RECORDS SUMMARY | 2024-09-16 15:14 | XMS_ITS | Encounter Summary ---
Author Organization [facility] Address [address] [place] [address] [address] [place] [address] Care Team Providers Care Pigment Supplier Name Role Phone Unavailable Primary Care Provider [...] (Late st Contact Info) Description 09/27/2022 Telephone [facility] ADULT DENTAL [address] [place], [place] [phone] Neymar [place] DDS [address] [place], [place] [phone] Prior Authorization (Serenity Terry 1945 Patient called [...]
--- OUTSIDE RECORDS SUMMARY | 2024-09-16 15:14 | XMS_ITS | Encounter Summary ---
Author Organization [facility] Address [address] [place] [address] [address] [place] [address] Care Team Providers Care Certified Tumor Registrar Name Role Phone Unavailable Primary Care Provider Unavailabl e Reason for Visit * Reason Onset Date Comments new appt 05/16/2023 Encounter Details Date Type Department Care Team (Late st Contact Info) Description 05/16/2023 Telephone [facility] ADULT DENTAL [address] [place] [address] Neymar [place] DDS [address] [place], [place] [phone] new appt Social History Tobacco Use Types [...]
--- OUTSIDE RECORDS SUMMARY | 2024-09-16 15:14 | XMS_ITS | Clinical Summary ---
Author Organization [facility] Address [address] [place] [address] Phone Care Team Providers Care Early Childhood Name Role Phone Nori Fay MD Primary Care Provider [phone] Allergies Active Allergy Reactions Criticality Noted Date [...] complete this topic Insurance ([id number]) [employer] [id number] [place] [address] ([id number]) [employer] [id number] Care Teams Early Childhood Relationship Specialty Start Date End Date Nori Fay MD [address] [place] [address] PCP - General 08/16/20
--- OUTSIDE RECORDS SUMMARY | 2024-09-16 15:14 | XMS_ITS | Encounter Summary ---
Author Organization [employer] Address [address] [place] [address] 7t [place] [address] Care Team Providers Care Teacher Of The Hearing Impaired Name Role Phone Unavailable Primary Care Provider Unavailabl e Encounter Details Date Type Department Care Team (Latest Contact Info) Description 07/24/2019 Abstract [facility] CONVERSIONS Dental, Provider, DDS Social History [...]
--- OUTSIDE RECORDS SUMMARY | 2024-09-16 15:14 | XMS_ITS | Encounter Summary ---
Author Organization [employer] Address [address] [facility] 7t [place] [address] Care Team Providers Care Insulation Worker Apprentice Name Role Phone Unavailable Primary Care Provider Unavailabl e Encounter Details Date Type Department Care Team (Late st Contact Info) Description 08/26/2024 Telephone [facility] ADULT DENTAL [address] [place], [place] [phone] Neymar Stewart DDS [address] [place], [place] [phone] Social History Tobacco Use Types Packs/Day Years [...]
--- OUTSIDE RECORDS SUMMARY | 2024-09-16 15:14 | XMS_ITS | Encounter Summary ---
Author Organization [employer] Address [address] [place] [address] 7t [place] [address] Care Team Providers Care Packing And Stamping Machine Operator Name Role Phone Unavailable Primary Care Provider Unavailabl e Encounter Details Date Type Department Care Team (Latest Contact Info) Description 02/09/2022 Abstract [facility] CONVERSIONS Dental, Provider, DDS Social History [...]
== END 2024-09-16 14:52 | disposition home or self-care (01) ==
PROVIDERS: PCP Internal Medicine; Visit Provider Internal Medicine
DX: E78.5 Hyperlipidemia, unspecified (principal); E11.42 Type 2 diabetes mellitus with diabetic polyneuropathy; I10 Essential (primary) hypertension; E03.9 Hypothyroidism, unspecified; T24.131A Burn of first degree of right lower leg, initial encounter

== ENCOUNTER → 2024-09-16 14:17 | Outpatient (BNVA) | payer OTHER, SELFPAY | PROVIDERS: PCP Internal Medicine; Visit Provider Internal Medicine | DX: E78.5 Hyperlipidemia, unspecified (principal); T30.0 Burn of unspecified body region, unspecified degree; I10 Essential (primary) hypertension; E03.9 Hypothyroidism, unspecified; E11.42 Type 2 diabetes mellitus with diabetic polyneuropathy | CPT/HCPCS: 99212 ==

== ENCOUNTER 2024-09-24 10:01 | Outpatient (AMB) | payer OTHER, SELFPAY ==
--- OUTSIDE RECORDS SUMMARY | 2024-09-24 10:31 | XMS_ITS | Encounter Summary ---
Author Organization [employer] [facility] Address [address] [place] [address] 7 [place] [address] Care Team Providers Care Wind Turbine Blade Repair Technician Name Role Phone Unavailable Primary Care Provider [...] (Late st Contact Info) Description 09/27/2022 Telephone [facility] ADULT DENTAL [address] [place], [place] [phone] Neymar Stewart DDS [address] [place], [place] [phone] Prior Authorization (Serenity Terry 1945 Patient called [...]
--- OUTSIDE RECORDS SUMMARY | 2024-09-24 10:31 | XMS_ITS | Clinical Summary ---
Author Organization [facility] Address [address] [place] [address] [facility] [place] [address] Phone Care Team Providers Care Wheel Truing Machine Tender Name Role Phone Nori Fay MD Primary Care Provider [phone] Allergies Active Allergy Reactions Criticality Noted Date [...] complete this topic Insurance ([id number]) [employer] MET[employer]GER [id number] [place] [address] ([id number]) [employer] [id number] Care Teams Wheel Truing Machine Tender Relationship Specialty Start Date End Date Nori Fay MD [address] [place] [address] PCP - General 08/16/20
--- OUTSIDE RECORDS SUMMARY | 2024-09-24 10:31 | XMS_ITS | Encounter Summary ---
Author Organization [employer] Address [address] [place] [address] 7t [place] [address] Care Team Providers Care Software Controls Engineer Name Role Phone Unavailable Primary Care Provider Unavailabl e Encounter Details Date Type Department Care Team (Latest Contact Info) Description 02/09/2022 Abstract [facility] CONVERSIONS Dental, Provider, DDS Social History [...]
--- OUTSIDE RECORDS SUMMARY | 2024-09-24 10:31 | XMS_ITS | Encounter Summary ---
Author Organization [employer] [facility] Address [address] [place] [address] 7t [place] [address] Care Team Providers Care Fleecer Name Role Phone Unavailable Primary Care Provider Unavailabl e Reason for Visit * Reason Comments Filling Encounter Details Date Type Department Care Team (Late st Contact Info) Description 03/26/2024 2:00 PM EDT Office Visit [facility] ADULT DENTAL [address] [place] [address] Neymar Stewart DDS [address] [place] [address] Fractured tooth due to trauma without complication, [...] Timeout Date: 03/26/24, Timeout Time: 1403 Location: [facility] Tooth: #24 and #25 Procedure: Evangelical Verified the above with patient, assistant to the president, and provider. Confirmed via patient's chart, intraorally and by radiographs. Equipment Application Specialist: not applicable Chief Complaint Patient presents [...] Etch Desensitizer: Gluma Liner/Base: None Su: I-Su Evangelical Material: Filtek Haystack Flowable Composite Shade: A3.5 Polished. Occlusion & contacts verified. Patient satisfied with comfort and esthetics. Serenity was advised about resin composite fragility, avoiding hard food with anterior teeth, using N.G. would help prolong life of pre conditioned restorations. Patient tolerated procedure well. Post-operative instructions were given. Patient departed alert, oriented, and in stable condition. NV: F/Up as needed / 6 mos recall Warehouse Operations Associate: Amna Marrero Dentist: Neymar Stewart DDS documented in this encounter Plan of Treatment Not on file documented as of this encounter Procedures Procedure Name Priority Date/Time Associated Diagnosis Comments 24 I RESIN-BASED COMPOSITE - 1 SURF, ANTERIOR Routine 03/26/2024 2:00 PM EDT 25 I RESIN-BASED COMPOSITE - 1 SURF, ANTERIOR Routine 03/26/2024 2:00 PM EDT CASE PRESENTATION, DETAILED AND EXTENSIVE TREATMENT PLANNING Routine 03/26/2024 2:00 PM EDT ADJUST PARTIAL DENTURE - MAXILLARY Routine 03/26/2024 2:00 PM EDT ADJUST PARTIAL DENTURE - MANDIBULAR Routine 03/26/2024 2:00 PM EDT documented in this encounter Visit Diagnoses Diagnosis Fractured tooth due to trauma without complication, sequela- Primary Ill-fitting dentures documented in this encounter
--- OUTSIDE RECORDS SUMMARY | 2024-09-24 10:31 | XMS_ITS | Encounter Summary ---
Author Organization [employer] Address [address] [place] [address] 7t [place] [address] Care Team Providers Care Dry House Wheeler Name Role Phone Unavailable Primary Care Provider Unavailabl e Reason for Visit * Reason Onset Date Comments new appt 05/16/2023 Encounter Details Date Type Department Care Team (Late st Contact Info) Description 05/16/2023 Telephone [facility] ADULT DENTAL [address] [place] [address] Neymar Stewart DDS [address] [place], [place] [phone] new appt Social History Tobacco Use Types [...]
--- OUTSIDE RECORDS SUMMARY | 2024-09-24 10:31 | XMS_ITS | Clinical Summary ---
Author Organization [employer] Address [address] [place] [address] 7t [place] [address] Care Team Providers Care Scale Agent Name Role Phone Unavailable Primary Care Provider [...] Type Department Care Team Description 08/26/2024 Telephone [facility] ADULT DENTAL [address] [place], [place] [phone] Neymar Stewart DDS from Last 3 Months [...] - ADULT Routine 023 2:30 PM EDT INTRAORAL - COMPLETE SERIES OF RADIOGRAPHIC IMAGES Routine 03/28/2023 2:30 PM EDT PERIODIC ORAL EVALUATION - ESTABLISHED PATIENT Routine 03/28/2023 2:30 PM EDT from Last 3 Months or Most Recently Relevant to Health Maintenance Insurance DENTAL [facility]
--- OUTSIDE RECORDS SUMMARY | 2024-09-24 10:31 | XMS_ITS | Encounter Summary ---
Author Organization [employer] Address [address] [place] [address] 7t [place] [address] Care Team Providers Care Revenue Cycle Manager Name Role Phone Unavailable Primary Care Provider Unavailabl e Encounter Details Date Type Department Care Team (Latest Contact Info) Description 07/24/2019 Abstract [facility] CONVERSIONS Dental, Provider, DDS Social History Tobacco [...]
--- OUTSIDE RECORDS SUMMARY | 2024-09-24 10:31 | XMS_ITS | Encounter Summary ---
Author Organization [employer] Address [address] [facility] 7t [place] [address] Care Team Providers Care Reconciling Clerk Name Role Phone Unavailable Primary Care Provider Unavailabl e Encounter Details Date Type Department Care Team (Late st Contact Info) Description 08/26/2024 Telephone [facility] ADULT DENTAL [address] [place], [place] [phone] Neymar Stewart DDS [address] [place], [place] [phone] Social History Tobacco Use Types Packs/Day Years [...]
--- NOTE | 2024-09-24 10:44 | MHC.PC.OV ---
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 Accompanied by: Self / Same As Patient Allergies codeine [CODEINE] Allergy (Intermediate, Verified 09/24/24 10:45) PRURITUS ibuprofen Allergy (Intermediate, Verified 09/24/24 10:45) stomach upset morphine [MORPHINE] Allergy (Intermediate, Verified 09/24/24 10:45) PRURITUS Penicillins [PENICILLINS] Allergy (Intermediate, Verified 09/24/24 10:45) SWELLING Tobacco use date assessed: 09/02/24 Fall risk assessment: No Falls in past year Last assessed Fall Risk: 09/24/24 Dental Screening Dental Screen Date: 09/02/24 HPI HPI Comments History of Present Illness Details The patient is a 79-year-old female presenting with ongoing management needs for diabetes mellitus type 2. Her condition is managed with insulin, and she observes regular follow-up with endocrinology. Her last recorded Hemoglobin A1c was 7.4% as of August 30. She also undergoes two diabetic eye exams annually as preventative care. Additionally, she manages hypothyroidism, hyperlipidemia, and moderate asthma, which have been stable with consistent care. Her medication regimen includes mirtazapine for depression and insomnia, and omeprazole for sustained management of gastroesophageal reflux disease (GERD). The patient experiences chronic low back pain and is opioid analgesic dependent, utilizing trazodone to aid her sleep. Recently, she sustained a burn which has resolved with the application of silver sulfadiazine. She reports no current chest pain or shortness of breath, indicating stable respiratory status. [facility], [facility] Medical History (Updated 09/24/24 @ 12:50 by Nori Parra MD) Physical exam Osteoarthritis, hip, bilateral Right hip pain Left hip pain Palpitations SVT (supraventricular tachycardia) B12 deficiency Leg edema Cognitive impairment Diabetic polyneuropathy Insomnia GERD (gastroesophageal reflux disease) High cholesterol Diabetes Hypothyroidism Hypertension Urge urinary incontinence Surgical History History of total abdominal hysterectomy Hx of bilateral breast biopsy Family History Father CVD (cardiovascular disease) Mother CVD (cardiovascular disease) Son No problems noted. Son Renal cell cancer Social History Housing: Apartment Alcohol intake: current Alcohol intake frequency: holidays/special occasions only Alcohol type: wine Patient Tobacco Use Status: Former Tobacco user Tobacco use type: Cigarette e-Cigarette/Vaping Use: Never Used Second Hand Smoke Exposure: No service: No Current occupational status: disabled Cognitive needs: Yes Hearing needs: No Vision needs: No Questionnaire Thrive Questionnaire Date Thrive assessed: 09/02/24 CLAU-7 AMB Questionnaire CLAU-7 Date CLAU - 7 assessed: 09/02/24 Source: Developed by Drs. Anil Jimenes, Rain Becerra, Byron Carmona and colleagues, with an educational jammie from [employer]. Review of Systems Const All systems reviewed & are unremarkable except as noted in HPI and below Card Denies chest pain at rest, Denies chest pain with activity, Denies edema, Denies irregular heart rhythm, Denies claudication, Denies dyspnea, Denies dyspnea on exertion, Denies orthopnea, Denies paroxysmal nocturnal dyspnea and Denies slow heart rate Resp Denies cough, Denies dyspnea and Denies dyspnea on exertion GI Denies abdominal pain, Denies change in bowel habits, Denies excessive flatus, Denies nausea and Denies vomiting Denies urinary incontinence, Denies urinary hesitancy and Denies urinary urgency Musc Denies atrophy, Denies deformity and Denies limited range of motion Physical exam (Primary Care) Vital Signs: Last Vital Signs BP 110/64 09/24/24 10:45 BMI result Body Mass Index 32.8 Tobacco/Smoking Status: Tobacco use Status Tobacco use date assessed 09/02/24 09/24/24 10:48 Patient Tobacco Use Status Former Tobacco user 09/24/24 10:48 Tobacco use type Cigarette 09/24/24 10:48 e-Cigarette/Vaping Use Never Used 09/24/24 10:48 Thrive Assessment: Date of Thrive Assessment Date Thrive assessed 09/02/24 09/24/24 10:48 Const Limitations: ambulation with cane Resp Effort & Inspection: normal respiratory effort Auscultation: clear to auscultation bilaterally Cardio Jugular venous distension: no JVD Rate: regular rate Rhythm: regular rhythm Heart sounds: S1 normal heart sound present and S2 normal heart sound present Extrem General: Yes full ROM Coding Level of Care Code Est Pt Level 4 (12214) Complex EM visit Add On G2211 Diagnoses Diabetes mellitus, with long-term current use of insulin E11.9; Z79.4 Hyperlipidemia LDL goal <70 E78.5 Mild major depression F32.0 Mild persistent asthma without complication J45.30 Asthma persistence: persistent Asthma complication type: uncomplicated Acquired hypothyroidism E03.9 Hypothyroidism type: acquired Time Spent (min) 22 Assessment & Plan Assessment & Plan (1) Diabetes mellitus, with long-term current use of insulin: Code(s): E11.9 - Type 2 diabetes mellitus without complications; 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 Category: Medical (2) Hyperlipidemia LDL goal <70: Code(s): E78.5 - Hyperlipidemia, unspecified Category: Medical (3) Mild major depression: Code(s): F32.0 - Major depressive disorder, single episode, mild Category: Medical (4) Mild asthma: Code(s): J45.909 - Unspecified asthma, uncomplicated Category: Medical Qualifiers: Asthma persistence: persistent Asthma complication type: uncomplicated Qualified Code(s): J45.30 - Mild persistent asthma, uncomplicated (5) Hypothyroidism: Code(s): E03.9 - Hypothyroidism, unspecified Category: Medical Qualifiers: Hypothyroidism type: acquired Qualified Code(s): E03.9 - Hypothyroidism, unspecified Plan - Monitor and manage Diabetes Mellitus Type 2 with continued insulin therapy and regular blood glucose monitoring. A repeat Hemoglobin A1c test will be scheduled as per standard endocrine follow-up. - Continue current interventions for Hypothyroidism, Hyperlipidemia, and Asthma with periodic reviews to ensure stability. - Maintain psychiatric medications to address Depression and Insomnia, assessing for efficacy and any side effects. - Gastroesophageal Reflux Disease to be managed with ongoing use of omeprazole. - Evaluate efficacy of pain management strategies for Chronic Low Back Pain, focusing on opioid use and considering alternative interventions. Patient was informed and verbally consented to the use of an ambient scribe for clinic note documentation during this visit. I discussed the importance of continuing her current medication regimen for diabetes, ensuring regular monitoring of her blood glucose levels, and staying consistent with endocrinology follow-ups. We reviewed the effectiveness of treatments for her hypothyroidism, hyperlipidemia, and asthma, emphasizing the need for periodic evaluation. The patient is aware that her depression and insomnia therapies require careful oversight to balance benefits and side effects. For GERD, I reiterated the necessity of ongoing omeprazole use. We also highlighted the importance of managing her chronic low back pain adequately to prevent complications associated with prolonged opioid use. Orders: Orders Lipid Panel Today E78.5 - Hyperlipidemia, unspecified Microalbumin, Random (w Creat) Today R80.9 - Proteinuria, unspecified Comprehensive [place]. Panel Fast Today E78.5 - Hyperlipidemia, unspecified Vitamin D 25-OH Total Today E55.9 - Vitamin D deficiency, unspecified Patient Instructions: - Continue taking all prescribed medications as directed. - Schedule and complete regular blood glucose tests and follow-up appointments with your range examiner. - Undertake diabetic eye exams twice yearly to monitor for any complications. - Report any new or worsening symptoms, especially respiratory or chest concerns. - Actively manage low back pain and evaluate the effectiveness of current pain medications.
[2024-09-24 10:45] VITALS: BP 110/64; BMI 32.8
== END 2024-09-24 10:59 | disposition home or self-care (01) ==
PROVIDERS: PCP Internal Medicine; Visit Provider Internal Medicine
DX: E11.9 Type 2 diabetes mellitus without complications (principal); Z79.4 Long term (current) use of insulin; E78.5 Hyperlipidemia, unspecified; F32.0 Major depressive disorder, single episode, mild; J45.30 Mild persistent asthma, uncomplicated; E03.9 Hypothyroidism, unspecified

== ENCOUNTER → 2024-09-24 10:01 | Outpatient (BNVA) | payer OTHER, SELFPAY | PROVIDERS: PCP Internal Medicine; Visit Provider Internal Medicine | DX: E11.9 Type 2 diabetes mellitus without complications (principal); E78.5 Hyperlipidemia, unspecified; F32.0 Major depressive disorder, single episode, mild; J45.30 Mild persistent asthma, uncomplicated; E03.9 Hypothyroidism, unspecified; Z79.4 Long term (current) use of insulin | CPT/HCPCS: 99212 ==

== ENCOUNTER 2025-01-28 10:54 | Outpatient (REF) | payer OTHER, SELFPAY ==
--- OUTSIDE RECORDS SUMMARY | 2025-01-28 12:53 | XMS_ITS | Patient Health Record ---
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
[2025-01-28 13:17] LABS: Appearance Urine Clear; Color Urine Yellow; Glucose Urine UA Negative (Negative); Leukocyte Esterase Urine Negative (Negative); Nitrite Urine Negative (Negative); Specific Gravity - Urine 1.025 (1.005-1.025); UMIC TRIGGER UA YES; Urine Blood Moderate (2+) (Negative); Urine Ketones Negative (Negative); Urine Protein Negative (Neg-Trace)
[2025-01-28 13:28] LABS: Bacteria Urine 2+ (None Seen); Hyaline Casts Urine 0-2 /LPF (0-2); WBC Urine 0-5 /HPF (0-5)
[2025-01-28 13:50] LABS: Anion Gap 11 (12-20); Blood Urea Nitrogen 15 mg/dL (9-16); Carbon Dioxide 25 mmol/L (22-29); Chloride 107 mmol/L (96-108); Estimated Glomerular Filt Rate > 60; Potassium 4.2 mmol/L (3.3-5.1); Sodium 139 mmol/L (135-145)
[2025-01-28 14:37] LABS: Creatinine Urine 119.66 mg/dL; Protein/Creatinine Ratio, Ur 0.12 (<0.2); Total Protein Urine Random 14 mg/dL (<12)
== END 2025-01-28 10:55 | disposition home or self-care (01) ==
LOC: HO.10HDL 10:54
PROVIDERS: Visit Provider Internal Medicine Nephrology
DX: I10 Essential (primary) hypertension (principal); R31.21 Asymptomatic microscopic hematuria; R60.0 Localized edema
CPT/HCPCS: 36415; 80051; 81001; 82565; 82570; 84156; 84520; 99212

== ENCOUNTER 2025-01-28 11:04 | Outpatient (AMB) | payer MEDICARE, SELFPAY ==
[2025-01-28 11:09] VITALS: BP 95/60; PULSE 63; O2SAT 95; BMI 32.1
--- NOTE | 2025-01-28 11:09 | HO.NEPHOV_ITS ---
Vital Signs 01/28/25 11:09 Height 5 ft 4 in Weight 187 lb BMI 32.1 BP 95/60 Blood Pressure Location Rt brachial Position Sitting Pulse 63 Pulse Source Pulse Oximeter Pulse Oximetry (%) 95 Oxygen Delivery Method Room Air Intake Visit Reasons: Hematuria-Conf Intake Note: Patient here for a follow-up. 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 She, at times, has mild bilateral pedal edema. She does not have any shortness of breath, paroxysmal nocturnal dyspnea, orthopnea. She takes nonsteroidal anti-inflammatory medications but not on a regular basis. She has not had any urinary infection, microscopic hematuria, dizziness, chest pain. She sees a reproduction technician Dr. Soto who manages her heart rhythm. She is maintained on lisinopril. She has been having edema which is worse with heat. She had no other new active complaints during this office visit. Her blood sugars are reasonably well controlled [facility] Medical History Physical exam Osteoarthritis, hip, bilateral Right hip pain Left hip pain Palpitations SVT (supraventricular tachycardia) B12 deficiency Leg edema Cognitive impairment Diabetic polyneuropathy Insomnia GERD (gastroesophageal reflux disease) High cholesterol Diabetes Hypothyroidism Hypertension Urge urinary incontinence Surgical History History of total abdominal hysterectomy Hx of bilateral breast biopsy Family History Father CVD (cardiovascular disease) Mother CVD (cardiovascular disease) Son No problems noted. Son Renal cell cancer Social History Housing: Apartment Alcohol intake: current Alcohol intake frequency: holidays/special occasions only Alcohol type: wine Patient Tobacco Use Status: Former Tobacco user Tobacco use type: Cigarette e-Cigarette/Vaping Use: Never Used Second Hand Smoke Exposure: No service: No Current occupational status: disabled Cognitive needs: Yes Hearing needs: No Vision needs: No Review of Systems Const All systems reviewed & are unremarkable except as noted in HPI and below Physical Exam Vital Signs: Last Vital Signs Pulse 63 01/28/25 11:09 Pulse Ox 95 01/28/25 11:09 Oxygen Delivery Method Room Air 01/28/25 11:09 BMI result Body Mass Index 32.1 Const General: comfortable and no acute distress Orientation/consciousness: patient oriented x3 HEENT Head: Yes normocephalic Mouth: Normal oral and palatal mucosa present Eyes EOM: EOMs intact bilaterally Neck Neck: Yes supple Resp Auscultation: clear to auscultation bilaterally Cardio Jugular venous distension: no JVD Rate: regular rate GI Palpation (GI): Soft to palpation Auscultation: normal bowel sounds General: Yes no CVA tenderness Back/Spine/Pelvis Back: no CVA tenderness Skin General skin exam: no rashes or lesions noted Neuro General: patient oriented x3 and moves all extremities Extrem General: Yes edema Assessment & Plan Assessment & Plan (1) Hypertension: Code(s): I10 - Essential (primary) hypertension Category: Medical Qualifiers: Hypertension type: essential hypertension Qualified Code(s): I10 - Essential (primary) hypertension (2) Hematuria: Code(s): R31.9 - Hematuria, unspecified Category: Medical Qualifiers: Hematuria type: asymptomatic microscopic Qualified Code(s): R31.21 - Asymptomatic microscopic hematuria (3) Edema: Code(s): R60.9 - Edema, unspecified Category: Medical Qualifiers: Edema type: localized Qualified Code(s): R60.0 - Localized edema Plan Serenity has history of microscopic hematuria and proteinuria. She is on Marcio inhibitors. Her blood pressure is at goal at home. I asked her to take metoprolol AM and lisinopril PM. I started her on Bumex 0.5 mg to be taken as needed. She has not had any macroscopic hematuria. Her renal functions had been stable ( blood work from this AM is pending). She needs to maintain her blood sugar at goal. She needs to lose more weight. She will be a candidate for Jardiance or Farxiga. I have ordered follow-up lab work. All her questions were answered. Orders: Orders Protein Creatinine Ratio, Ur 1 Month I10 - Essential (primary) hypertension, R 31.21 - Asymptomatic microscopic hematuria, R60.0 - Localized edema NT-proBNP 1 Month I10 - Essential (primary) hypertension, R31.21 - Asymptomatic microscopic hematuria, R60.0 - Localized edema Electrolytes 1 Month I10 - Essential (primary) hypertension, R31.21 - Asymptomatic microscopic hematuria, R60.0 - Localized edema Albumin Level 1 Month I10 - Essential (primary) hypertension, R31.21 - Asymptomatic microscopic hematuria, R60.0 - Localized edema Creatinine 1 Month I10 - Essential (primary) hypertension, R31.21 - Asymptomatic microscopic hematuria, R60.0 - Localized edema Blood Urea Nitrogen 1 Month I10 - Essential (primary) hypertension, R31.21 - Asymptomatic microscopic hematuria, R60.0 - Localized edema Medications: New bumetanide 0.5 mg PO DAILY PRN 30 tabs 0RF edema Coding Level of Care Code Est Pt Level 4 (98389) Diagnoses Essential hypertension I10 Hypertension type: essential hypertension Asymptomatic microscopic hematuria R31.21 Hematuria type: asymptomatic microscopic Localized edema R60.0 Edema type: localized
== END 2025-01-28 11:35 | disposition home or self-care (01) ==
PROVIDERS: PCP Internal Medicine; Visit Provider Internal Medicine Nephrology
DX: I10 Essential (primary) hypertension (principal); R31.21 Asymptomatic microscopic hematuria; R60.0 Localized edema
CPT/HCPCS: 99214

== ENCOUNTER 2025-02-24 10:44 | Outpatient (AMB) | payer OTHER, SELFPAY ==
--- NOTE | 2025-02-24 10:57 | MHC.PC.OV ---
Vital Signs 02/24/25 11:01 Height 5 ft 4 in Weight 188 lb BMI 32.3 BP 112/60 Blood Pressure Location Lt brachial Position Sitting Intake Visit Reasons: 4 Month F/U Intake Note: Patient here for a [address] Cleaner Required: No Accompanied by: Self / Same As Patient Allergies codeine (CODEINE) Allergy (Intermediate, Verified 02/24/25 11:16) PRURITUS ibuprofen Allergy (Intermediate, Verified 02/24/25 11:16) stomach upset morphine (MORPHINE) Allergy (Intermediate, Verified 02/24/25 11:16) PRURITUS Penicillins (PENICILLINS) Allergy (Intermediate, Verified 02/24/25 11:16) SWELLING Medication List - Last Reconciled 02/24/25 by Nori Parra MD acetaminophen 500 mg PO Q6H PRN 30 days Advair HFA 115-21 mcg/actuation (fluticasone propion-salmeterol) 2 puffs inhalation Q12H 30 days NS albuterol sulfate 2.5 mg (3 mL) inhalation TID PRN 30 days alcohol swabs 0 pad topical aspirin 81 mg PO DAILY blood sugar diagnostic As directed blood-glucose meter As directed bumetanide 0.5 mg PO DAILY PRN cetirizine 10 mg PO BID 30 days ezetimibe 10 mg PO DAILY 90 days flecainide 50 mg PO Q12H 30 days fluticasone propion-salmeterol 250-50 mcg/dose (Advair Diskus) 1 inh inhalation BID 30 days [hospital bed side table As directed] incontinence pad, liner, disp Use 1 pad three times a day insulin aspart U-100 units subcut insulin glargine (Lantus Solostar U-100 Insulin) 16 units (0.16 mL) subcut BEDTIME latex gloves (Latex Gloves, Large) As directed levothyroxine 100 mcg PO DAILY 90 days lisinopril 2.5 mg PO DAILY metoprolol succinate ER 25 mg PO DAILY mirtazapine 30 mg PO BEDTIME 90 days nebulizers (AeroEclipse II Nebulizer) As directed omeprazole 20 mg PO DAILY 90 days oxycodone 5 mg PO Q8H PRN 30 days pen needle, diabetic As directed pregabalin 200 mg PO DAILY rosuvastatin 40 mg PO DAILY 90 days silver sulfadiazine 1% 1 appl topical DAILY 7 days trazodone 100 mg PO BEDTIME 90 days triamcinolone acetonide 0.025% 1 appl topical DAILY 2 weeks [wedge pillow As directed] [wipes As directed] Tobacco use date assessed: 09/02/24 Fall risk assessment: No Falls in past year Last assessed Fall Risk: 02/24/25 Dental Screening Dental Screen Date: 09/02/24 HPI HPI Comments History of Present Illness Details The patient is a 79-year-old female presenting with the management of chronic conditions including hypertension, type 2 diabetes mellitus, hypothyroidism and hyperlipidemia. She also has mild major depression well controlled. Hypertension has been managed with lisinopril 2.5 mg, and the patient reports good blood pressure control. Type 2 diabetes mellitus is being managed with insulin, with a current regimen of 14 units twice daily, and the patient's recent HbA1c is 6.8%. Hyperlipidemia is being treated with rosuvastatin 40 mg. The patient experiences dizziness, which has been a recurrent issue. She has been prescribed meclizine in the past, which provided relief, but she is cautious about using it due to potential drowsiness. The patient has a history of allergic rhinitis, managed with cetirizine. She also reports diabetic neuropathy, for which she takes Lyrica. Hypothyroidism is managed with levothyroxine 100 mcg. Gastroesophageal reflux disease is treated with omeprazole. Chronic back pain is managed with oxycodone. The patient also reports insomnia, for which she uses trazodone. [facility] Medical History (Updated 02/24/25 @ 11:41 by Nori Parra MD) Physical exam Osteoarthritis, hip, bilateral Right hip pain Left hip pain Palpitations SVT (supraventricular tachycardia) B12 deficiency Leg edema Cognitive impairment Diabetic polyneuropathy Insomnia GERD (gastroesophageal reflux disease) High cholesterol Diabetes Hypothyroidism Hypertension Urge urinary incontinence Surgical History History of total abdominal hysterectomy Hx of bilateral breast biopsy Family History Father CVD (cardiovascular disease) Mother CVD (cardiovascular disease) Son No problems noted. Son Renal cell cancer Social History Housing: Apartment Alcohol intake: current Alcohol intake frequency: holidays/special occasions only Alcohol type: wine Patient Tobacco Use Status: Former Tobacco user Tobacco use type: Cigarette e-Cigarette/Vaping Use: Never Used Second Hand Smoke Exposure: No service: No Current occupational status: disabled Cognitive needs: Yes Hearing needs: No Vision needs: No Questionnaire PHQ-9 Over the last 2 weeks, how often have you been bothered by any of the following problems? 1. Little interest or pleasure in doing things: not at all 2. Feeling down, depressed, or hopeless: not at all 3. Trouble falling or staying asleep, or sleeping too much: not at all 4. Feeling tired or having little energy: not at all 5. Poor appetite or overeating: not at all 6. Feeling bad about yourself - or that you are a failure or have let yourself or your family down: not at all 7. Trouble concentrating on things, such as reading the newspaper or watching television: not at all 8. Moving or speaking so slowly that other people could have noticed. Or the opposite - being so fidgety or restless that you have been moving around a lot more than usual: not at all 9. Thoughts that you would be better off or of hurting yourself in some way: not at all Total score: 0 Depression Screening Interpretation: Negative Depression Screening Done: Yes 17352 - PHQ-9 Billing: Yes Source: Developed by Drs. Anil Jimenes, Rain Becerra, Byron Carmona and colleagues, with an educational jammie from [employer] Thrive Questionnaire Date Thrive assessed: 02/24/25 I am a: Patient What is your living situation today?: I have a steady place to live Within the past 12 months, did the food you bought not last and you didn't have the money to get more?: Never true Within the past 12 months, did you worry whether your food would run out before you got money to buy more?: Never true Do you have trouble paying for medicines?: No Do you have trouble getting transportation to medical appointments?: No Do you have trouble paying your heating and electricity bill?: No Do you have trouble taking care of your child, family member or friend?: No Do you have trouble with day-to-day activities such as bathing, preparing meals, shopping, managing finances, etc.?: Yes Are you currently unemployed and looking for a job?: No Are you interested in more education?: No Please select the resources that you would like help with: Food Currently or been in a relationship where the following occur: I choose not to answer THRIVE Score: 0 AUDIT C Alcohol Use Questionnaire (AUDIT-C) 1. How often do you have a drink containing alcohol?: Never Total Score: 0 Score Reviewed/Action Taken: No CLAU-7 AMB Questionnaire CLAU-7 Date CLAU - 7 assessed: 09/02/24 Source: Developed by Drs. Anil Jimenes, Rain Becerra, Byron Carmona and colleagues, with an educational jammie from [employer]. Review of Systems Const All systems reviewed & are unremarkable except as noted in HPI and below Card Denies chest pain at rest, Denies chest pain with activity, Denies edema, Denies irregular heart rhythm, Denies claudication, Denies dyspnea, Denies dyspnea on exertion, Denies orthopnea, Denies paroxysmal nocturnal dyspnea and Denies slow heart rate Resp Denies cough, Denies dyspnea and Denies dyspnea on exertion GI Denies abdominal pain, Denies change in bowel habits, Denies excessive flatus, Denies nausea and Denies vomiting Denies urinary incontinence, Denies urinary hesitancy and Denies urinary urgency Physical exam (Primary Care) Vital Signs: Last Vital Signs BP 112/60 02/24/25 11:01 BMI result Body Mass Index 32.3 BMI Assessment/Plan discussion: High BMI High, discussed plan: lifestyle, weight reduction, dietary and physical activity Tobacco/Smoking Status: Tobacco use Status Tobacco use date assessed 09/02/24 02/24/25 10:58 Patient Tobacco Use Status Former Tobacco user 02/24/25 10:58 Tobacco use type Cigarette 02/24/25 10:58 e-Cigarette/Vaping Use Never Used 02/24/25 10:58 PHQ-9: PHQ-9 Score PHQ-9: Total score 0 02/24/25 11:12 Depression Screening Interpretation: Negative Thrive Assessment: Date of Thrive Assessment Date Thrive assessed 02/24/25 02/24/25 10:58 Currently or been in a relationship where the following occur: I choose not to answer Resp Effort & Inspection: normal respiratory effort Auscultation: clear to auscultation bilaterally Cardio Jugular venous distension: no JVD Rate: regular rate Rhythm: regular rhythm Heart sounds: S1 normal heart sound present and S2 normal heart sound present Extrem General: Yes full ROM Results AMB Hemoglobin A1c AMB Hemoglobin A1c 6.8 % Last Edit by ADDISON Pearce on 02/24/25 11:12 Results Reviewed Results Reviewed: Laboratory Last Values Hgb A1c (Clinic) 6.8 % (4.0-6.0) H 02/24/25 10:57 Coding Level of Care Code Est Pt Level 4 (79398) Complex EM visit Add On G2211 Diagnoses Mild major depression F32.0 Hyperlipidemia LDL goal <70 E78.5 Diabetes mellitus, with long-term current use of insulin E11.9; Z79.4 Acquired hypothyroidism E03.9 Hypothyroidism type: acquired Essential hypertension I10 Hypertension type: essential hypertension Degeneration of intervertebral disc of lumbar region with discogenic back pain M51.360 Disc-related pain type: discogenic back pain only Dizziness R42 Additional Codes PHQ-9 - 32467 - PHQ-9 Billing: Yes ([id number]) Time Spent (min) 24 Assessment & Plan Assessment & Plan (1) Mild major depression: Code(s): F32.0 - Major depressive disorder, single episode, mild Category: Medical (2) Hyperlipidemia LDL goal <70: Code(s): E78.5 - Hyperlipidemia, unspecified Category: Medical (3) Diabetes mellitus, with long-term current use of insulin: Code(s): E11.9 - Type 2 diabetes mellitus without complications; Z79.4 - shelter (current) use of insulin Category: Medical (4) Hypothyroidism: Code(s): E03.9 - Hypothyroidism, unspecified Category: Medical Qualifiers: Hypothyroidism type: acquired Qualified Code(s): E03.9 - Hypothyroidism, unspecified (5) Hypertension: Code(s): I10 - Essential (primary) hypertension Category: Medical Qualifiers: Hypertension type: essential hypertension Qualified Code(s): I10 - Essential (primary) hypertension (6) Lumbar degenerative disc disease: Comment: Pain management contract signed 09/02/24 Code(s): M51.36 - Other intervertebral disc degeneration, lumbar region Category: Medical Qualifiers: Disc-related pain type: discogenic back pain only Qualified Code(s): M51.360 - Other intervertebral disc degeneration, lumbar region with discogenic back pain only (7) Dizziness: Code(s): R42 - Dizziness and giddiness Category: Medical Plan The management plan includes continuing current medications for hypertension, diabetes, and hyperlipidemia. The patient is advised to monitor blood pressure and blood glucose levels regularly. For dizziness, the use of meclizine is suggested with caution due to potential drowsiness, and it should not be used concurrently with cetirizine. The patient is advised to continue current medications for allergic rhinitis, diabetic neuropathy, hypothyroidism, gastroesophageal reflux disease, chronic back pain, and insomnia. Follow-up appointments with endocrinology and cardiology are recommended to ensure comprehensive management of her conditions. Patient was informed and verbally consented to the use of an ambient scribe for clinic note documentation during this visit. I discussed with the patient the importance of continuing her current medication regimen for managing her chronic conditions. We reviewed the potential side effects of meclizine and its interaction with cetirizine, advising her to use it cautiously. I recommended follow-up with her vascular physician and building maintenance supervisor to ensure optimal management of her health. Orders: Orders AMB Hemoglobin A1c Today E11.9 - Type 2 diabetes mellitus without complications, Z79.4 - shelter (current) use of insulin Lipid Panel 4 Months E78.5 - Hyperlipidemia, unspecified Microalbumin, Random (w Creat) 4 Months R80.9 - Proteinuria, unspecified Comprehensive [place]. Panel Fast 4 Months E11.9 - Type 2 diabetes mellitus without complications, Z79.4 - shelter (current) use of insulin Vitamin D 25-OH Total 4 Months E55.9 - Vitamin D deficiency, unspecified Medications: New fluocinolone acetonide oil 0.01% (DermOtic Oil) 5 drps otic (ears) BID 20 mL 1RF 7 days meclizine 25 mg PO BID PRN 60 tabs 0RF dizziness 30 days nebulizers (AeroEclipse II Nebulizer) As directed 1 ea 0RF J45.30 - Mild persistent asthma, uncomplicated Refilled albuterol sulfate 2.5 mg (3 mL) inhalation TID PRN 225 mL 7RF bronchospasm 30 days Patient Instructions: - Continue taking all prescribed medications as directed. - Monitor your blood pressure and blood sugar levels regularly. - Use meclizine cautiously and avoid using it with cetirizine. - Schedule follow-up appointments with your vascular physician and building maintenance supervisor.
[2025-02-24 11:01] VITALS: BP 112/60; BMI 32.3
--- OUTSIDE RECORDS SUMMARY | 2025-02-24 11:59 | XMS_ITS | Clinical Summary ---
Author Organization [employer] Address [address] [place] [address] [address] [place] [address] Care Team Providers Care Interior Wirer Name Role Phone Unavailable Primary Care Provider [...] Gingival recession, localized 09/05/2022 Dental calculus 09/05/2022 Social History Tobacco Use Types Packs/Day Years [...] Additional history exists Tobacco Screening 03/26/2025 03/26/2024 Influenza Vaccine (#1) 2025 05/13/2024, 2011 Dental X-Ray: Full Mouth 03/29/2026 03/28/2023 HIB Vaccines Aged Out No longer eligi [...] patient's age to complete this topic Meningococcal B Vaccine Aged Out No l onger eligible based on patient's age to complete [...]
--- OUTSIDE RECORDS SUMMARY | 2025-02-24 11:59 | XMS_ITS | Patient Health Record ---
Author Organization [facility] [facility] Address [address] [place] [address] Care Team Providers Care Lead Instructor/Flight Attendant Name Role Phone Pollo Fields Jr [phone] Reason For Referral No Information Plan Of Treatment No Information
--- OUTSIDE RECORDS SUMMARY | 2025-02-24 11:59 | XMS_ITS | Clinical Summary ---
Author Organization [facility] Address [address] [place] [address] Phone Care Team Providers Care Set Up Mechanic Stamping Machines Name Role Phone Nori Fay MD Primary Care Provid er Cristhian Bob MD Unavailable Allergies Active Allergy Reactions Criticality Noted Date Comments Acetaminophen Other (See Comments) 11/17/2020 Codeine Other (See Comments) 11/17/2020 Fentanyl Other (See Comments) 11/17/2020 Hydrochlorothiazide Other (See Comments) 11/17/2020 Pt reports that this medicine gives her pain in her back, possibly from kidney Ibuprofen Diarrhea Medium 09/05/2022 Diarrhea and stomach pain Menadiol Sodium Diphosphate Diarrhea 09/05/19 23 Diarrhea and stomach pain Morphine Itching,Rash Low 09/05/2022 Oxycodone Other (See Comments) 11/17/2020 Pt stated not allergic just dont like taking them Penicillins Angioedema,Other (See Comments) 11/17/2020 Medications FREESTYLE MELANI 2 SENSOR kit Use as directed to monitor glucose, change q14 days, dx E11.9, on insulin 6 kit 3 3 Active traZODone (DESYREL) 50 MG tablet 3 Active rosuvastatin (CRESTOR) 40 MG tablet Take 40 mg by mouth. Active omeprazole (PRILOSEC) 20 MG capsule 3 Active mometasone (NASONEX) 50 mcg/actuation nasal spray 2 sprays by Nasal route. Active mirtazapine (REMERON) 30 MG tablet Take 30 mg by mouth nightly at bedtime as needed. 3 Active metoprolol succinate (TOPROL-XL) 25 MG 24 hr tablet 3 Active loratadine (CLARITIN) 10 mg tablet Take 1 tablet by mouth. Active lisinopril (PRINIVIL,ZEST RIL) 2.5 MG tablet 3 Active lidocaine (LIDODERM) 5 % 3 Active flecainide (TAMBOCOR) 50 MG tablet 3 Active doxylamine (UNISON) 25 mg tablet Take 50 mg by mouth. 3 Active cetirizine (ZYRTEC) 10 MG tablet 3 Active aspirin 81 MG EC tablet 3 Active levothyroxine (SYNTHROID, LEVOTHROID) 100 MCG tablet Take 100 mcg by mouth every morning. Active ezetimibe (ZETIA) 10 mg tablet Take 10 mg by mouth daily. 4 Active fluticasone propion-salmet Estella (ADVAIR DISKUS) 100-50 mcg/dose DISKUS Inhale 100 mcg/actuation of fluticasone into the lungs 2 (two) times a day. 4 Active oxyCODONE 5 MG immediate release tablet Take 5 mg by mouth every 6 (six) hours as needed for pain (specific location in comments). 4 Active insulin aspart U-100 (NOVOLOG FLEXPEN U-100 INSULIN) 100 unit/mL (3 mL) injection penIndications :Type 2 diabetes mellitus with peripheral neuropathy INJECT 13 TO 15 UNITS SUBCUTANEOUSLY 2 TO 3 TIMES DAILY BEFOREMEALS OR DIRECTED, PLUS 2 UNITS TO PRIME PEN WITH EACH DOSE 15 mL 11 4 Active insulin glargine (LANTUS SOLOSTAR U-100 INSULIN) 100 unit/mL (3 mL) InPn injection penIndications :Type 2 diabetes mellitus with peripheral neuropathy INJECT 14 UNITS SUBCUTANEOUSLY DAILY PLUS 2 UNITS TO PRIME PEN WITH EACH DOSE 15 mL 3 4 Active pregabalin (LYRICA) 200 MG capsuleIndicat ions:Type 2 diabetes mellitus with peripheral neuropathy TAKE (1) CAPSULE BY MOUTH TWICE DAILY. 56 capsule 5 5 Active alcohol PadMIndication s:Type 2 diabetes mellitus with peripheral neuropathy USE DIRECTED TO CLEAN SKIN PRIOR TO GIVING INSULIN OR APPLYING SENSOR UP TO 5 TIMES DAILY. 200 each 11 5 Active insulin pen needles, disposable, (BD INSULIN PEN NEEDLE UF SHORT) 31 gauge x 5/16 NdleIndication s:Type 2 diabetes mellitus with peripheral neuropathy USE TO INJECT INSULIN 4 TIMES DAILY 120 each 11 5 Active Active Problems Problem Noted Date Diagnosed Date FPC current use of insulin 12/17/2022 Type 2 diabetes mellitus with peripheral neuropa thy 12/17/2022 Overview (12/17/2022): isaias Pena, [facility], melani Assessment & Plan (05/22/2024 1:56 PM EDT): Control good based on Melani download. No frequent or severe hypoglycemia. Occasional mild low, advised to cut back on lantus from 15 to 14 units. Continue to work on eating healthy & keeping active as able. To call or send in BG with problems with glycemic control. To have labs soon. Up to date with ophtho. Foot & nail care good. BP under reasonable control. Assessment & Plan (11/09/2023 2:46 PM EDT): Control good based on Melani download. No frequent or severe hypoglycemia. She is concerned with readings. Reassured her they look quite good & likely some of fluctuation related to stress/less exercise. No pattern to BG readings to guide rx adjustment. Advised to scan more frequently to capture more data to better evaluate control/guide rx adjustment. Discussed timing of analog insulin in relation to meals. Advised she can increase novolog by 1-2 units if eating food likely to spike glucose. Continue to work on eating healthy & keeping active as able. To call or send in BG with problems with glycemic control. To have labs soon. Up to date with ophtho. BP under reasonable control. Assessment & Plan (04/27/2023 11:32 AM EDT): Control good based on Melani. No frequent or severe hypoglycemia. No pattern to BG readings to guide rx adjustment. Advised to scan more frequently to capture more data to better evaluate control/guide rx adjustment.Continue to work on eating healthy & keeping active. To call or send in BG with problems with glycemic control. Will do labs today. To call if hasn't heard from us within 1-2 weeks. Up to date with ophtho. Foot & nail care good. BP under reasonable control. Assessment & Plan (12/17/2022 5:54 PM EDT): Control per pt report of SMBG & last HbA1c. No frequent or severe hypoglycemia. No BG available to guide rx adjustment. Continue to work on eating healthy & keeping active. To call or send in BG with problems with glycemic control. Up to date with ophtho. To do labs soon. To call if hasn't heard from us within 1-2 weeks. BP under reasonable control. Follows w/ Dr. Bob for HTN/microscopic hematuria. Acquired hypothyroidism 12/17/2022 Assessment & Plan (05/22/2024 1:57 PM EDT): Last TSH mildly low. Advised to have labs done soon & call us when they are done so we can track down results. Will adjust rx as appropriate. Assessment & Plan (11/09/2023 2:47 PM EDT): Will have TFTs repeated with upcoming labs & adjust as appropriate. Assessment & Plan (04/27/2023 11:32 AM EDT): Will check levels & adjust as appropriate. Assessment & Plan (12/17/2022 5:55 PM EDT): Will check levels & adjust rx as appropriate. Hypertension 06/01/2021 12/14/2022 Microscopic hematuria 11/17/2020 12/14/2022 Encounters Date Type Department Care Team Description 01/08/2025 Refill [facility] [address] [place] [address] Marisol Jacobs MD Medication Refill 12/30/2024 Refill [facility] [address] [place] [address] Kaley Palafox MA from Last 3 Months Social History Tobacco Use Types Packs/Day Years Used Date Smoking Tobacco: Never Smokeless Tobacco: Never Tobacco Cessation:Counseling Given: Not Answered Alcohol Use Standard Drinks/Week Comments Not Currently 0 (1 standard drink = 0.6 oz pur e alcohol) Education Answer Date Recorded Are you interested in more education? Not on maxwell e 12/02/2022 Are you concerned about learning? Not on file 12/02/2022 No 12/02/2022 No 12/02/2022 Digital Access Answer Date Recorded No 12/26/2022 No 12/26/2022 Reliable internet access at home? Not on file 12/26/2022 Device with a working camera? Not on file Comments Unknown Sex and Gender Information Value Date Recorded Sex Assigned at Not on file Legal Sex Female 3:35 PM EST Gender Identity Not on file Sexual Orientation Not on file Last Filed Vital Signs Vital Sign Reading Time Taken Comments Blood Pressure 110/60 05/22/2024 1:21 PM EDT Pulse 71 05/22/2024 1:21 PM EDT Temperature - - Respiratory Rate - - Oxygen Saturation 97% 05/22/2024 1:21 PM EDT Inhaled Oxygen Concentration - - Weight 86.1 kg (189 lb 12.8 oz) 05/22/2024 1:21 PM EDT Height 158.1 cm (5' 2.24 ) 05/22/2024 1:21 PM ED T Body Mass Index 34.44 05/22/2024 1:21 PM EDT Plan of Treatment Upcoming Encounters Date Type Department Care Team (Late st Contact Info) Description 03/05/2025 11:40 AM EDT Office Visit [facility] [address] [place] [id number] Marisol Jacobs MD [address] [place] [phone] [email or web address] Health Maintenance Due Date Last Done Comments Adult Td,Tdap Booster 1945 DEPRESSION SCREENING 1958 HEPATITIS C SCREENING 1964 PNEUMOCOCCAL VACCINES (50+ years) (1 of 2 - PCV) 1965 ZOSTER VACCINES (1 of 2) 1996 OSTEOPOROSIS SCREENING INITI AL (ONE-TIME) 2011 RSV VACCINE (1 - 1-dose 75+ series) 2021 DIABETIC EYE EXAM 12/17/2022 HEMOGLOBIN A1C 10/26/2023 04/27/2023 COVID-19 VACCINE ( - 2023-2 5 season) 2024 CREATININE LEVEL 04/27/2024 04/27/2023, 12/14/2022 POTASSIUM LEVEL 04/27/2024 04/27/2023, 12/14/2022 BLOOD PRESSURE 11/20/2024 05/22/2024 TSH LEVEL 01/01/2025 01/02/2024, 04/27/2023, 12/14/2022 SMOKING STATUS SCREENING (On ce After 26 Yrs) Completed 05/22/2024 HEPATITIS A VACCINES Aged Out No long er eligible based on patient's age to complete this topic HIB VACCINES Aged Out No longer eligi ble based on patient's age to complete this topic MENINGOCOCCAL VACCINES (ACWY) Aged Out No longer eligible based on patient's age to complete this topic MENINGOCOCCAL VACCINES (B) Aged Out N o longer eligible based on patient's age to complete this topic Medical Devices Not on file Procedures Procedure Name Priority Date/Time Associated Diagnosis Comments TSH WITH REFLEX Routine 01/02/2024 2:52 PM EDT Acquired hypothyroidism HEMOGLOBIN A1C Routine 04/27/2023 11:37 AM EDT Type 2 diabetes mellitus with peripheral neuropathy BASIC METABOLIC PANEL Routine 04/27/2023 11:37 AM EDT Type 2 diabetes mellitus with peripheral neuropathy from Last 3 Months or Most Recently Relevant to Health Maintenance Results * TSH with reflex (01/02/2024 2:52 PM EDT) Blood us Marisol Jacobs MD LAB BLOOD ORDERABLES F inal Result [address] [address] * (ABNORMAL) Hemoglobin A1c (04/27/2023 11:37 AM EDT) HEMOGLOBIN A1C 6.9(H) 4.3 - 5.8 % [facility] Blood 04/27/2023 11:3 7 AM EDT 04/27/2023 11:39 AM EDT Marisol Jacobs MD LAB BLOOD ORDERABLES F inal Result [address] [address] * (ABNORMAL) Basic metabolic panel (04/27/2023 11:37 AM EDT) Pathologist [facility] SODIUM 140 133 - 146 mmol/L [facility] CHLORIDE 106 96 - 108 mmol/L [facility] POTASSIUM 3.5 3.3 - 5.1 mmol/L [facility] CO2 25 21 - 35 mmol/L [facility] BUN 21(H) 6 - 19 mg/dL [facility] CREATININE 1.10 0.5 - 1.5 mg/dL [facility] GLUCOSE 170(H) 70 - 99 mg/dL [facility] CALCIUM 9.4 8.4 - 10.3 mg/dL [facility] EGFR 52(L) >59 mL/min/1.7 3m2 [facility] Comment:Estimated glomerular filtration rate calculated using the CKD-EPI refit equation. ANION GAP 13 10 - 20 mmol/L [facility] Blood 04/27/2023 11:3 7 AM EDT 04/27/2023 11:38 AM EDT Marisol Jacobs MD LAB BLOOD ORDERABLES F inal Result [address] [address] from Last 3 Months or Most Recently Relevant to Health Maintenance Insurance MEDICARE PART A & B [facility] MEDICARE REPLACEMENT [facility] MEDICARE PART A & B [facility] MEDICARE REPLACEMENT MEDICARE PART A & B [facility] MEDICARE REPLACEMENT MEDICARE PART A & B [facility] MEDICARE REPLACEMENT MEDICARE PART A & B [facility] MEDICARE REPLACEMENT MEDICARE PART A & [facility] Care Teams Set Up Mechanic Stamping Machines Relationship Specialty Start Date End Date Nori Fay MD [address] [place] [address] PCP - General Internal Medicine 12/14/22 Cristhian Bob MD [address] [place] [address] Nephrology 12/17/22 Additional Source Comments The information contained in this document represents components of the legal health record. It is not the complete legal health record.[facility]
--- OUTSIDE RECORDS SUMMARY | 2025-02-24 11:59 | XMS_ITS | Clinical Summary ---
Author Organization [facility] Address [address] [place] [address] Phone Care Team Providers Care Quality Assurance Engineer Name Role Phone Nori Fay MD Primary Care Provider [phone] Allergies Active Allergy Reactions Criticality Noted Date [...] 11/17/2020 Edema 11/17/2020 Microscopic hematuria 11/17/2020 Immunizations Immunization Administration Dates Next Due Pneumococcal Polysaccharide 11/10/2013 [...] Due Date Last Done Comments Pneumococcal Vaccine: 50+ Ye ars (2 of 2 - PCV) 11/10/2014 11/10/2013 Influenza Vaccine (#1) 2025 Pneumococcal Vaccine: Peds ( 0 to 5 Years) and At-Risk Patients (6 to 49 Years) Discontinued 11/10/2013 Hepatitis B Vaccine Aged Out No longe r eligible based on patient's age to complete this topic Insurance ([id number]) [place] [address] ([id number]) Care Teams Quality Assurance Engineer Relationship Specialty Start Date End Date Nori Fay MD [address] [place], [place] PCP - General 08/16/20
== END 2025-02-24 11:29 | disposition home or self-care (01) ==
LOC: HO.HMCH 10:44
PROVIDERS: PCP Internal Medicine; Visit Provider Internal Medicine
DX: F32.0 Major depressive disorder, single episode, mild (principal); E78.5 Hyperlipidemia, unspecified; E11.9 Type 2 diabetes mellitus without complications; Z79.4 Long term (current) use of insulin; E03.9 Hypothyroidism, unspecified; I10 Essential (primary) hypertension; M51.360 Other intervertebral disc degeneration, lumbar region with discogenic back pain only; R42 Dizziness and giddiness

== ENCOUNTER → 2025-02-24 10:44 | Outpatient (BNVA) | payer OTHER, SELFPAY | PROVIDERS: PCP Internal Medicine; Visit Provider Internal Medicine | DX: I10 Essential (primary) hypertension (principal); E03.9 Hypothyroidism, unspecified; E78.5 Hyperlipidemia, unspecified; R42 Dizziness and giddiness; J30.9 Allergic rhinitis, unspecified; E11.40 Type 2 diabetes mellitus with diabetic neuropathy, unspecified; K21.9 Gastro-esophageal reflux disease without esophagitis; M54.9 Dorsalgia, unspecified; F32.0 Major depressive disorder, single episode, mild; M51.360 Other intervertebral disc degeneration, lumbar region with discogenic back pain only; J45.30 Mild persistent asthma, uncomplicated; Z79.4 Long term (current) use of insulin; Z79.891 Long term (current) use of opiate analgesic | CPT/HCPCS: 83036; 96127; 99212 ==

== ENCOUNTER 2025-02-27 10:55 | Outpatient (AMB) | payer MEDICARE, SELFPAY ==
--- OUTSIDE RECORDS SUMMARY | 2025-02-27 11:06 | XMS_ITS | Clinical Summary ---
Author Organization [employer] Address [address] [place] [address] [address] [place] [address] Care Team Providers Care Asbestos Pipe Supervisor Name Role Phone Unavailable Primary Care [...]
--- OUTSIDE RECORDS SUMMARY | 2025-02-27 11:06 | XMS_ITS | Clinical Summary ---
Author Organization [facility] Address [address] [place] [address] Phone Care Team Providers Care Payroll Benefits Clerk Name Role Phone Nori Fay MD Primary [...] Active Problems Problem Noted Date Diagnosed Date alf current use of insulin 12/17/2022 Type 2 [...] [facility] [address] [place] [address] Marisol Jacobs MD Medication Refill 12/30/2024 Refill [facility] [address] [place] [address] Kaley Palafox MA from Last 3 Months [...] 11:40 AM EDT Office Visit [facility] [address] [place] [phone] Marisol Jacobs MD [address] [place] [phone] [email or web address] Health Maintenance Due Date Last Done Comments [...] MD LAB BLOOD ORDERABLES F inal Result [address] [address] * (ABNORMAL) Hemoglobin A1c (04/27/2023 11:37 AM EDT) HEMOGLOBIN A1C 6.9(H) 4.3 - 5.8 % Blood 04/27/2023 11:3 7 AM EDT 04/27/2023 11:39 AM EDT Marisol Jacobs MD LAB BLOOD ORDERABLES F inal Result [address] [address] * (ABNORMAL) Basic metabolic panel (04/27/2023 11:37 AM EDT) Pathologist [facility] SODIUM 140 133 - 146 mmol/L CHLORIDE 106 96 - 108 mmol/L POTASSIUM 3.5 3.3 - 5.1 mmol/L CO2 25 21 - 35 mmol/L BUN 21(H) 6 - 19 mg/dL CREATININE 1.10 0.5 - 1.5 mg/dL GLUCOSE 170(H) 70 - 99 mg/dL CALCIUM 9.4 8.4 - 10.3 mg/dL EGFR 52(L) >59 mL/min/1.7 3m2 Comment:Estimated glomerular filtration rate calculated using the CKD-EPI refit equation. ANION GAP 13 10 - 20 mmol/L Blood 04/27/2023 11:3 7 AM EDT 04/27/2023 11:38 AM EDT Marisol Jacosb MD LAB BLOOD ORDERABLES F inal Result [address] [address] from Last 3 Months or Most Recently Relevant to Health Maintenance Insurance MEDICARE PART A & B [facility] MEDICARE REPLACEMENT [facility] MEDICARE PART A & B [facility] MEDICARE REPLACEMENT MEDICARE PART A & B [facility] MEDICARE REPLACEMENT MEDICARE PART A & B [facility] MEDICARE REPLACEMENT MEDICARE PART A & B [facility] MEDICARE REPLACEMENT MEDICARE PART A & B [facility] MEDICARE REPLACEMENT Care Teams Payroll Benefits Clerk Relationship Specialty Start Date End Date Nori Fay MD [address] [place] [address] PCP - General Internal Medicine 12/14/22 Cristhian Bob MD [address] [place] [address] Nephrology 12/17/22 Additional Source Comments The information contained in this document represents components of the legal health record. It is not the complete legal health record.[facility]
--- OUTSIDE RECORDS SUMMARY | 2025-02-27 11:06 | XMS_ITS | Patient Health Record ---
Author Organization [facility] Address [address] [place] [address] Care Team Providers Care Lumber Scaler Name Role Phone Pollo Fields Jr Reason For Referral No Information Plan Of Treatment No Information
--- OUTSIDE RECORDS SUMMARY | 2025-02-27 11:06 | XMS_ITS | Clinical Summary ---
Author Organization [facility] Address [address] [place] [address] Phone Care Team Providers Care Sampler Radioactive Waste Name Role Phone Nori Fay MD Primary Care Provider [phone] Allergies Active Allergy Reactions Criticality Noted Date [...] age to complete this topic Insurance ([id number]) [place] [address] ([id number]) Care Teams Sampler Radioactive Waste Relationship Specialty Start Date End Date Nori Fay MD [address] [place], [place] PCP - General 08/16/20
--- NOTE | 2025-02-27 11:26 | HO.NEPHOV_ITS ---
Vital Signs 02/27/25 11:27 Height 5 ft 4 in Weight 187 lb 8 oz BMI 32.2 BP 90/50 L Blood Pressure Location Lt brachial Position Sitting Pulse 62 Pulse Source Pulse Oximeter Pulse Oximetry (%) 95 Oxygen Delivery Method Room Air Intake Visit Reasons: Hematuria-Conf Dry Chain Puller Required: No Accompanied by: Self / Same As Patient Allergies codeine (CODEINE) Allergy (Intermediate, Verified 02/27/25 11:27) PRURITUS ibuprofen Allergy (Intermediate, Verified 02/27/25 11:27) stomach upset morphine (MORPHINE) Allergy (Intermediate, Verified 02/27/25 11:27) PRURITUS Penicillins (PENICILLINS) Allergy (Intermediate, Verified 02/27/25 11:27) SWELLING HPI Comments Details: Serenity was seen in the office for follow-up of her history of hypertension, microscopic hematuria and proteinuria. She, at times, has mild bilateral pedal edema. She does not have any shortness of breath, paroxysmal nocturnal dyspnea, orthopnea. She takes nonsteroidal anti-inflammatory medications but not on a regular basis. She has not had any urinary infection, microscopic hematuria, dizziness, chest pain. She sees a can vacuum tester Dr. Soto who manages her heart rhythm. She is maintained on lisinopril. She had no other new active complaints during this office visit. Her blood sugars are reasonably well controlled [facility] Medical History Physical exam Osteoarthritis, hip, bilateral Right hip pain Left hip pain Palpitations SVT (supraventricular tachycardia) B12 deficiency Leg edema Cognitive impairment Diabetic polyneuropathy Insomnia GERD (gastroesophageal reflux disease) High cholesterol Diabetes Hypothyroidism Hypertension Urge urinary incontinence Surgical History History of total abdominal hysterectomy Hx of bilateral breast biopsy Family History Father CVD (cardiovascular disease) Mother CVD (cardiovascular disease) Son No problems noted. Son Renal cell cancer Social History Housing: Apartment Alcohol intake: current Alcohol intake frequency: holidays/special occasions only Alcohol type: wine Patient Tobacco Use Status: Former Tobacco user Tobacco use type: Cigarette e-Cigarette/Vaping Use: Never Used Second Hand Smoke Exposure: No service: No Current occupational status: disabled Cognitive needs: Yes Hearing needs: No Vision needs: No Review of Systems Const All systems reviewed & are unremarkable except as noted in HPI and below Physical Exam Vital Signs: Last Vital Signs Pulse 62 02/27/25 11:27 BP 90/50 L 02/27/25 11:27 Pulse Ox 95 02/27/25 11:27 Oxygen Delivery Method Room Air 02/27/25 11:27 BMI result Body Mass Index 32.2 Const General: comfortable and no acute distress Orientation/consciousness: patient oriented x3 HEENT Head: Yes normocephalic Mouth: Normal oral and palatal mucosa present Eyes EOM: EOMs intact bilaterally Neck Neck: Yes supple Resp Auscultation: clear to auscultation bilaterally Cardio Jugular venous distension: no JVD Rate: regular rate GI Palpation (GI): Soft to palpation Auscultation: normal bowel sounds General: Yes no CVA tenderness Back/Spine/Pelvis Back: no CVA tenderness Skin General skin exam: no rashes or lesions noted Neuro General: patient oriented x3 and moves all extremities Extrem General: Yes no pedal edema Results Reviewed Nephrology Results: Sodium, (135-145) 139 mmol/L 01/28/25 Potassium, (3.3-5.1) 4.2 mmol/L 01/28/25 Chloride, (96-108) 107 mmol/L 01/28/25 Carbon Dioxide, (22-29) 25 mmol/L 01/28/25 BUN, (9-16) 15 mg/dL 01/28/25 Creatinine, (0.5-1.4) 0.77 mg/dL 01/28/25 Urine Protein, (Neg-Trace) Negative mg/dL 01/28/25 Urine Creatinine 119.66 mg/dL 01/28/25 Protein/Creatinin Ratio, (<0.2) 0.12 01/28/25 Assessment & Plan Assessment & Plan (1) Hypertension: Code(s): I10 - Essential (primary) hypertension Category: Medical Qualifiers: Hypertension type: essential hypertension Qualified Code(s): I10 - Essential (primary) hypertension (2) Hematuria: Code(s): R31.9 - Hematuria, unspecified Category: Medical Qualifiers: Hematuria type: asymptomatic microscopic Qualified Code(s): R31.21 - Asymptomatic microscopic hematuria Plan Serenity has history of microscopic hematuria and proteinuria. She is on Marcio inhibitors. Her blood pressure is at goal at home. I asked her to take metoprolol AM and lisinopril PM. She is on Bumex 0.5 mg to be taken as needed. She has not had any macroscopic hematuria. Her renal functions had been stable. She needs to maintain her blood sugar at goal. She needs to lose more weight. She will be a candidate for [email or web address] or [employer]. I have ordered follow-up lab work. All her questions were answered. Orders: Orders Blood Urea Nitrogen 3 Months I10 - Essential (primary) hypertension Electrolytes 3 Months I10 - Essential (primary) hypertension Creatinine 3 Months I10 - Essential (primary) hypertension Coding Level of Care Code Est Pt Level 4 (27627) Diagnoses Essential hypertension I10 Hypertension type: essential hypertension Asymptomatic microscopic hematuria R31.21 Hematuria type: asymptomatic microscopic
[2025-02-27 11:27] VITALS: BP 90/50; PULSE 62; O2SAT 95; BMI 32.2
== END 2025-02-27 11:54 | disposition home or self-care (01) ==
LOC: HO.HKA 10:56
PROVIDERS: PCP Internal Medicine; Visit Provider Internal Medicine Nephrology
DX: I10 Essential (primary) hypertension (principal); R31.21 Asymptomatic microscopic hematuria
CPT/HCPCS: 99214

== ENCOUNTER → 2025-02-27 10:55 | Outpatient (BNVA) | payer OTHER, SELFPAY | PROVIDERS: PCP Internal Medicine; Visit Provider Internal Medicine Nephrology | DX: R31.21 Asymptomatic microscopic hematuria (principal); I10 Essential (primary) hypertension | CPT/HCPCS: 99212 ==

== ENCOUNTER 2025-04-21 10:42 | Outpatient (REF) | payer OTHER, SELFPAY ==
[2025-04-21 11:00] LABS: MANUAL DIFF FLAG NO
[2025-04-21 11:20] LABS: Hematocrit 39.2 % (37.0-47.0); Hemoglobin 12.7 g/dl (12.0-16.0); Mean Corpuscular Volume 87.9 fL (80.0-98.0); Red Blood Count 4.46 X10*6/uL (4.20-5.50); White Blood Count 4.9 X10*3/uL (4.8-10.8)
[2025-04-21 11:21] LABS: Imm Gran Abs Auto 0.01 X10*3/uL (0.00-0.03); Imm Gran Pct Auto 0.2 % (0.0-0.4); Lymphocytes Absolute Auto 1.9 X10*3/uL (1.2-4.9); Mean Corpuscular HGB Conc 32.4 g/dl (31.0-35.0); Mean Corpuscular Hemoglobin 28.5 pg (27.0-33.0); NRBC Abs Auto 0.000 X10*3/uL (0.0-0.012); NRBC Pct Auto 0.0 /100WBC (0.0-0.2); Platelet Count 157 X10*3/uL (160-400)
[2025-04-21 12:12] LABS: Iron 83 mcg/dL (30-160); Percent Iron Saturation 38 % (15-50); Total Iron Binding Capacity 221 mcg/dL (228-428); Unsaturated Iron Binding 138 ug/dL
[2025-04-21 12:40] LABS: Folate 11.1 ng/mL (> or = 4.0); Vitamin B12 229 pg/mL (200-900)
--- OUTSIDE RECORDS SUMMARY | 2025-04-21 14:14 | XMS_ITS | Clinical Summary ---
Author Organization [facility] Address [address] [place] [address] Phone Care Team Providers Care Hand Bulldozer Name Role Phone Nori Fay MD Primary Care Provider [phone] Allergies Active Allergy Reactions Criticality Noted Date [...] age to complete this topic Insurance ([id number]) [place] [address] ([id number]) Care Teams Hand Bulldozer Relationship Specialty Start Date End Date Nori Fay MD [address] [place], [place] PCP - General 08/16/20
--- OUTSIDE RECORDS SUMMARY | 2025-04-21 14:14 | XMS_ITS | Encounter Summary ---
Author Organization [employer] Address [address] [place] [address] 7[address] [place] [address] Care Team Providers Care Personal Financial Planner Name Role Phone Unavailable Primary Care Provider Unavailabl e Reason for Visit * Reason Onset Date Comments new appt 05/16/2023 Encounter Details Date Type Department Care Team (Late st Contact Info) Description 05/16/2023 Telephone [facility] [address] [place] [address] Neymar Stewart, MICHAEL [address] [place] [address] new appt Social History Tobacco Use Types [...]
--- OUTSIDE RECORDS SUMMARY | 2025-04-21 14:14 | XMS_ITS | Encounter Summary ---
Author Organization [employer] Address [address] [place] [address] 7t [place] [address] Care Team Providers Care Helmet Hat Sweatband Puncher Name Role Phone Unavailable Primary Care Provider [...] (Late st Contact Info) Description 09/27/2022 Telephone [facility] [address] [place], [place] [phone] Neymar Stewart DDS [address] [place], [place] [phone] Prior Authorization (Serenity Terry 1945 Patient called [...]
--- OUTSIDE RECORDS SUMMARY | 2025-04-21 14:14 | XMS_ITS | Clinical Summary ---
Author Organization [employer] Address [address] [place] [address] [address] [place] [address] Care Team Providers Care Crib Clerk Name Role Phone Unavailable Primary Care [...] 03/28/2023, 09/05/2022 Dental X-Ray: Bitewings 03/29/2024 03/28/2023 Tobacco Screening 03/26/2025 03/26/2024 COVID-19 Vaccine ( - season) 2025 02/15/2022, 06/08/2021, 11/12/2020, Additional history exists Influenza Vaccine (#1) 2025 05/13/2024, 2011 Dental [...]
--- OUTSIDE RECORDS SUMMARY | 2025-04-21 14:14 | XMS_ITS | Encounter Summary ---
Author Organization [employer] Address [address] [place] [address] 7t [place] [address] Care Team Providers Care Arborist Climber Name Role Phone Unavailable Primary Care Provider Unavailabl e Encounter Details Date Type Department Care Team (Latest Contact Info) Description 02/09/2022 Abstract [facility] CONVERSIONS Dental, Provider, DDS Social History [...]
--- OUTSIDE RECORDS SUMMARY | 2025-04-21 14:14 | XMS_ITS | Clinical Summary ---
Author Organization [facility] Address [address] [place] [address] Phone Care Team Providers Care Scheduler Name Role Phone Nori Fay MD Primary [...] Active mirtazapine (REMERON) 30 MG tablet Take 15 mg by mouth nightly at bedtime as [...] pain (specific location in comments). 4 Active alcohol PadMIndication s:Type 2 diabetes mellitus with peripheral neuropathy USE DIRECTED TO CLEAN SKIN PRIOR TO GIVING INSULIN OR APPLYING SENSOR UP TO 5 TIMES DAILY. 200 each 5 Active insulin pen needles, disposable, (BD INSULIN PEN NEEDLE UF SHORT) 31 gauge x 12/19 NdleIndication s:Type 2 diabetes mellitus with peripheral neuropathy USE TO INJECT INSULIN 4 TIMES DAILY 120 each 11 5 Active albuterol 2.5 mg /3 mL (0.083 %) nebulizer solution 5 Active gabapentin (NEURONTIN) 100 MG capsule 5 Active insulin aspart U-100 (NOVOLOG) 100 unit/mL (3 mL) injection penIndications :Type 2 diabetes mellitus with peripheral neuropathy INJECT 15 UNITS SUBCUTANEOUSLY 2 TO 3 TIMES DAILY BEFOREMEALS OR DIRECTED, PLUS 2 UNITS TO PRIME PEN WITH EACH DOSE 15 mL 2 5 Active pregabalin (LYRICA) 150 MG capsuleIndicat ions:Type 2 diabetes mellitus with peripheral neuropathy Take 1 capsule (150 mg total) by mouth 2 (two) times a day. 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 No frequent or severe hypoglycemia, although running in 80s overnight, advised to cut back on lantus from 14 to 12 units. Continue to work on eating healthy & keeping active as able. To call or send in BG with problems with glycemic control. Will call for recent labs done via PCP. Up to date with ophtho. ? Recent umalb/creat? Neuropathy symptoms under good control. Is on both gabapentin & lyrica. Will try tapering back on lyrica to help avoid/limit polypharmacy. Assessment & Plan (05/22/2024 1:56 PM EDT): Control good based on Melani download. No frequent or severe hypoglycemia. Occasional mild low, advised to cut back on lantus from 15 to 14 units. Continue to work on eating healthy & keeping active as able. To call or send in BG with problems with glycemic control. To have labs soon. Up to date with opho. Foot & nail care good. BP under [...] hematuria. Acquired hypothyroidism 12/17/2022 Assessment & Plan (03/05/2025 2:25 PM EDT): Will call for recent labs. Assessment & Plan (05/22/2024 1:57 PM EDT): [...] Encounters Date Type Department Care Team Description 04/02/2025 Orders Only [facility] [address] [place] [address] [place] [address] Marisol Jacobs MD Type 2 diabetes mellitus with peripheral neuropathy (Primary Dx); Acquired hypothyroidism 03/25/2025 Refill [facility] Endocrinology [address] [place] [address] [place] [address] Kaley Palafox MA Medication Refill 03/05/2025 11:40 AM EDT Office Visit [facility] [address] [place] [address] [place] [address] Marisol Jacobs MD Acquired hypothyroidism (Primary Dx); Type 2 diabetes mellitus with peripheral neuropathy; 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 03/05/2025 Orders Only [facility] [address] [place] [address] [place] [address] Marisol Jacobs MD Type 2 diabetes mellitus with peripheral neuropathy 03/05/2025 Refill [facility] [place] [address] Marisol Jacobs MD Medication Refill 03/05/2025 Telephone [facility] [address] [place] [address] Marisol Jacobs MD 02/27/2025 Refill [facility] [address] [place] [address] [place] [address] Marisol Jacobs MD Medication Refill from Last 3 Months Social History Tobacco [...] Sign Reading Time Taken Comments Blood Pressure 138/84 03/05/2025 12:06 PM EDT Pulse 60 03/05/2025 12:06 PM EDT Temperature 36.6 C (97.8 F) 03/05/2025 12:06 PM EDT Respiratory Rate - - Oxygen Saturation 96% 03/05/2025 12:06 PM EDT Inhaled Oxygen Concentration - - Weight 85.7 kg (189 lb) 03/05/2025 12:06 PM EDT Height 158.1 cm (5' 2.24 ) 03/05/2025 12:06 PM E DT Body Mass Index 34.3 03/05/2025 12:06 PM EDT Plan of Treatment Upcoming Encounters Date Type Department Care Team (Late st Contact Info) Description 10/09/2025 11:00 AM EST Office Visit [facility] [address] [place] [address] Marisol Jacobs MD [address] [place] [id number] Health Maintenance Due Date Last Done Comments Adult Td,Tdap Booster 1945 DEPRESSION SCREENING 1958 HEPATITIS C SCREENING 1964 PNEUMOCOCCAL VACCINES (50+ years) (1 of 2 - PCV) 1965 ZOSTER VACCINES (1 of 2) 1996 OSTEOPOROSIS SCREENING INITI AL (ONE-TIME) 2011 RSV VACCINE (1 - 1-dose 75+ series) 2021 DIABETIC EYE EXAM 12/17/2022 HEMOGLOBIN A1C 10/26/2023 04/27/2023 CREATININE LEVEL 04/27/2024 04/27/2023, 12/14/2022 POTASSIUM LEVEL 04/27/2024 04/27/2023, 12/14/2022 TSH LEVEL 01/01/2025 01/02/2024, 04/27/2023, 12/14/2022 INFLUENZA VACCINE (#1) 2025 COVID-19 VACCINE ( - 2023-2 5 season) 2025 BLOOD PRESSURE 09/05/2025 03/05/2025 SMOKING STATUS SCREENING (On ce After 26 [...] with reflex (01/02/2024 2:52 PM EDT) Blood Marisol Jacobs MD LAB BLOOD ORDERABLES F inal Result [address] [address] * (ABNORMAL) Hemoglobin A1c (04/27/2023 11:37 AM EDT) HEMOGLOBIN A1C 6.9(H) 4.3 - 5.8 % [facility] Blood 04/27/2023 11:3 7 AM EDT 04/27/2023 11:39 AM EDT Marisol Jacobs MD LAB BLOOD ORDERABLES F inal Result Performing Organization Address [facility] Co de Phone Number [address] [address] * (ABNORMAL) Basic metabolic panel (04/27/2023 11:37 AM EDT) SODIUM 140 133 - 146 mmol/L [facility] CHLORIDE 106 96 - 108 mmol/L [facility] POTASSIUM 3.5 3.3 - 5.1 mmol/L [facility] CO2 25 21 - 35 mmol/L [facility] BUN 21(H) 6 - 19 mg/dL [facility] CREATININE 1.10 0.5 - 1.5 mg/dL [facility] GLUCOSE 170(H) 70 - 99 mg/dL [facility] CALCIUM 9.4 8.4 - 10.3 mg/dL [facility] EGFR 52(L) >59 mL/min/1.7 3m2 [facility] Comment:Estimated glomerular filtration rate calculated using the CKD-EPI refit equation. ANION GAP 13 10 - 20 mmol/L [facility] Blood 04/27/2023 11:3 7 AM EDT 04/27/2023 11:38 AM EDT us Marisol Jacobs MD LAB BLOOD ORDERABLES F inal Result Performing Organization Address City/[facility]/ZIP Co de Phone Number [address] [address] from Last 3 Months or Most Recently Relevant to Health Maintenance Insurance MEDICARE PART A & [place] [address] [address] MEDICARE REPLACEMENT [employer] [id number] MEDICARE PART A & B [facility] MEDICARE REPLACEMENT MEDICARE PART A & B [facility] MEDICARE REPLACEMENT MEDICARE PART A & B MEDICARE REPLACEMENT [employer] [id number] MEDICARE PART A & B MEDICARE REPLACEMENT [employer] [id number] MEDICARE PART A & B [facility] MEDICARE REPLACEMENT Care Teams Scheduler Relationship Specialty Start Date End Date Nori Fay MD [address] [place] [address] PCP - General Internal Medicine 12/14/22 Cristhian Bob MD [address] [place] [address] Nephrology 12/17/22 Additional Source Comments The information contained in this document represents components of the legal health record. It is not the complete legal health record.[facility]
--- OUTSIDE RECORDS SUMMARY | 2025-04-21 14:14 | XMS_ITS | Patient Health Record ---
Author Organization [employer] Address [address] [place] [address] Care Team Providers Care Tester/Lift Trucker Name Role Phone Pollo Fields Jr Reason For Referral No Information Plan Of Treatment No Information
--- OUTSIDE RECORDS SUMMARY | 2025-04-21 14:14 | XMS_ITS | Encounter Summary ---
Author Organization [employer] Address [address] [place] [address] 7t [place] [address] Care Team Providers Care Lending Consultant Name Role Phone Unavailable Primary Care Provider Unavailabl e Encounter Details Date Type Department Care Team (Latest Contact Info) Description 07/24/2019 Abstract [facility] CONVERSIONS Dental, Provider, DDS Social History [...]
== END 2025-04-21 10:43 | disposition home or self-care (01) ==
LOC: HO.LAB 10:42
PROVIDERS: PCP Internal Medicine; Visit Provider Internal Medicine
DX: E55.9 Vitamin D deficiency, unspecified (principal); E53.8 Deficiency of other specified B group vitamins; D64.9 Anemia, unspecified
CPT/HCPCS: 36415; 82306; 82607; 82746; 83540; 85025

== ENCOUNTER 2025-04-30 10:03 | Outpatient (AMB) | payer OTHER, SELFPAY ==
[2025-04-30 10:07] VITALS: BP 110/46; PULSE 52; RESP 18; TEMP 36.3; O2SAT 94; BMI 31.8
--- NOTE | 2025-04-30 10:07 | MHC.PC.OV ---
Vital Signs 04/30/25 10:07 Height 5 ft 4 in Weight 185 lb 6 oz BMI 31.8 BP 110/46 L Blood Pressure Location Rt brachial Position Sitting Respiration 18 Pulse 52 Pulse Source Pulse Oximeter Temp 97.3 F Temp Source Temporal Artery Scan Pulse Oximetry (%) 94 Oxygen Delivery Method Room Air Intake Visit Reasons: Dizziness Pharmaceutical Officer Required: No Accompanied by: Self / Same As Patient Allergies codeine (CODEINE) Allergy (Intermediate, Verified 04/30/25 10:07) PRURITUS ibuprofen Allergy (Intermediate, Verified 04/30/25 10:07) stomach upset morphine (MORPHINE) Allergy (Intermediate, Verified 04/30/25 10:07) PRURITUS Penicillins (PENICILLINS) Allergy (Intermediate, Verified 04/30/25 10:07) SWELLING Medication List - Last Reconciled 04/30/25 by Kelsey King MD acetaminophen 500 mg PO Q6H PRN 30 days Advair HFA 115-21 mcg/actuation (fluticasone propion-salmeterol) 2 puffs inhalation Q12H 30 days NS albuterol sulfate 2.5 mg (3 mL) inhalation TID PRN 30 days alcohol swabs 0 pad topical aspirin 81 mg PO DAILY blood pressure test kit-large As directed blood sugar diagnostic As directed blood-glucose meter As directed bumetanide 0.5 mg PO DAILY PRN cetirizine 10 mg PO BID 30 days ezetimibe 10 mg PO DAILY 90 days flecainide 50 mg PO Q12H 30 days fluocinolone acetonide oil 0.01% (DermOtic Oil) 5 drps otic (ears) BID 7 days fluticasone propion-salmeterol 250-50 mcg/dose (Advair Diskus) 1 inh inhalation BID 30 days [hospital bed side table As directed] incontinence pad, liner, disp Use 1 pad three times a day insulin aspart U-100 units subcut insulin glargine (Lantus Solostar U-100 Insulin) 16 units (0.16 mL) subcut BEDTIME latex gloves (Latex Gloves, Large) As directed levothyroxine 100 mcg PO DAILY 90 days lisinopril 2.5 mg PO DAILY [Mask and tubing for nebulizer machine As directed] meclizine 25 mg PO BID PRN 30 days metoprolol succinate ER 25 mg PO DAILY mirtazapine 30 mg PO BEDTIME 90 days [nebulizer mask and tubing As directed] nebulizers (AeroEclipse II Nebulizer) As directed nebulizers (AeroEclipse II Nebulizer) As directed omeprazole 20 mg PO DAILY 90 days oxycodone 5 mg PO Q8H PRN 30 days pen needle, diabetic As directed pregabalin 200 mg PO DAILY rosuvastatin 40 mg PO DAILY 90 days silver sulfadiazine 1% 1 appl topical DAILY 7 days trazodone 100 mg PO BEDTIME 90 days triamcinolone acetonide 0.025% 1 appl topical DAILY 2 weeks [wedge pillow As directed] [wipes As directed] Tobacco use date assessed: 04/30/25 Fall risk assessment: No Falls in past year Last assessed Fall Risk: 04/30/25 Dental Screening Dental Screen Date: 04/30/25 Did you have a dental visit in the last 12 months?: Yes Did you have a dental problem in the last 6 months where you did not have access to dental care?: No Was dental information given to patient?: Patient has dentist HPI HPI Comments History of Present Illness Details The patient is a 79-year-old female presenting with dizziness. The dizziness has been present for months and occurs three to five times a day, primarily when the patient is active or standing. The episodes are accompanied by neck pain and a sensation of impending fainting, but they resolve quickly upon lying down. The patient reports that the dizziness does not occur when lying down or turning in bed, but rather when she is up and moving around. She denies any changes in hearing or ear ringing. The patient has been taking meclizine 25 mg twice daily, but reports it is ineffective. The patient has a history of low blood pressure, with recent readings as low as DBP 48/46 mmHg. She also has a history of arrhythmia and has previously used a Holter monitor. There is no reported chest pain or palpitations associated with the dizziness. [facility] Medical History Physical exam Osteoarthritis, hip, bilateral Right hip pain Left hip pain Palpitations SVT (supraventricular tachycardia) B12 deficiency Leg edema Cognitive impairment Diabetic polyneuropathy Insomnia GERD (gastroesophageal reflux disease) High cholesterol Diabetes Hypothyroidism Hypertension Urge urinary incontinence Surgical History History of total abdominal hysterectomy Hx of bilateral breast biopsy Family History Father CVD (cardiovascular disease) Mother CVD (cardiovascular disease) Son No problems noted. Son Renal cell cancer Social History Housing: Apartment Alcohol intake: current Alcohol intake frequency: holidays/special occasions only Alcohol type: wine Patient Tobacco Use Status: Former Tobacco user Tobacco use type: Cigarette e-Cigarette/Vaping Use: Never Used Second Hand Smoke Exposure: No service: No Current occupational status: disabled Cognitive needs: Yes Hearing needs: No Vision needs: No Questionnaire Thrive Questionnaire Date Thrive assessed: 02/24/25 I am a: Patient What is your living situation today?: I have a steady place to live Within the past 12 months, did the food you bought not last and you didn't have the money to get more?: Never true Within the past 12 months, did you worry whether your food would run out before you got money to buy more?: Never true Do you have trouble paying for medicines?: No Do you have trouble getting transportation to medical appointments?: No Do you have trouble paying your heating and electricity bill?: No Do you have trouble taking care of your child, family member or friend?: No Do you have trouble with day-to-day activities such as bathing, preparing meals, shopping, managing finances, etc.?: Yes Are you currently unemployed and looking for a job?: No Are you interested in more education?: No Please select the resources that you would like help with: Food Currently or been in a relationship where the following occur: I choose not to answer THRIVE Score: 0 CLAU-7 AMB Questionnaire CLAU-7 Date CLAU - 7 assessed: 09/02/24 Not being able to stop or control worryin = Not at all Worrying too much about different things: 0 = Not at all Trouble relaxin = Not at all Being so restless that it is hard to sit still: 0 = Not at all Becoming easily annoyed or irritable: 0 = Not at all Feeling afraid as if something awful might happen: 0 = Not at all Source: Developed by Drs. Anil Jimnees, Rain Becerra, Byron Carmona and colleagues, with an educational jammie from [employer]. Review of Systems Const Details: Positives besides what was mentioned in HPI are in BOLD Constitutional: No Weight Change, No Fever, No Chills, No Night Sweats, No Fatigue, No Malaise ENT/Mouth: No Hearing Changes, No Ear Pain, No Nasal Congestion, No Sinus Pain, No Hoarseness, No sore throat, No Rhinorrhea, No Swallowing Difficulty Eyes: No Eye Pain, No Swelling, No Redness, No Foreign Body, No Discharge, No Vision Changes Cardiovascular: No Chest Pain, No SOB, No PND, No Dyspnea on Exertion, No Orthopnea, No Claudication, No Edema, No Palpitations Respiratory: No Cough, No Sputum, No Wheezing, No Smoke Exposure, No Dyspnea Gastrointestinal: No Nausea, No Vomiting, No Diarrhea, No Constipation, No Pain, No Heartburn, No Anorexia, No Dysphagia, No Hematochezia, No Melena, No Flatulence, No Jaundice Genitourinary: No Dysmenorrhea, No DUB, No Dyspareunia, No Dysuria, No Urinary Frequency, No Hematuria, No Urinary Incontinence, No Urgency, No Flank Pain, No Urinary Flow Changes, No Hesitancy Musculoskeletal: No Arthralgias, No Myalgias, No Joint Swelling, No Joint Stiffness, No Back Pain, No Neck Pain, No Injury History Skin: No Skin Lesions, No Pruritis, No Hair Changes, No Breast/Skin Changes, No Nipple Discharge Neuro: No Weakness, No Numbness, No Paresthesias, No Loss of Consciousness, No Syncope, No Dizziness, No Headache, No Coordination Changes, No Recent Falls Psych: No Anxiety/Panic, No Depression, No Insomnia, No Personality Changes, No Delusions, No Rumination, No SI/HI/AH/VH, No Social Issues, No Memory Changes, No Violence/Abuse Hx., No Eating Concerns Heme/Lymph: No Bruising, No Bleeding, No Transfusions History, No Lymphadenopathy Endocrine: No Polyuria, No Polydipsia, No Temperature Intolerance Physical exam (Primary Care) Vital Signs: Last Vital Signs Temp 97.3 F 04/30/25 10:07 Pulse 52 04/30/25 10:07 Resp 18 04/30/25 10:07 BP 110/46 L 04/30/25 10:07 Pulse Ox 94 04/30/25 10:07 Oxygen Delivery Method Room Air 04/30/25 10:07 BMI result Body Mass Index 31.8 Tobacco/Smoking Status: Tobacco use Status Tobacco use date assessed 04/30/25 04/30/25 10:08 Patient Tobacco Use Status Former Tobacco user 04/30/25 10:08 Tobacco use type Cigarette 04/30/25 10:08 e-Cigarette/Vaping Use Never Used 04/30/25 10:08 Thrive Assessment: Date of Thrive Assessment Date Thrive assessed 02/24/25 04/30/25 10:08 Currently or been in a relationship where the following occur: I choose not to answer Const Other: Pertinent findings are in BOLD GENERAL APPEARANCE NAD, activity normal for age, well developed/ well nourished, no cyanosis, pallor, or diaphoresis. EYES lids/conjunctiva normal. EARS/NOSE/THROAT Mucous membranes moist, nares normal, lips/teeth normal uvula midline without oral pharyngeal erythema, exudate or swelling TMs normal bilaterally. No lymphangitis/lymphedema. HEAD/NECK normocephalic atraumatic, no facial trauma, neck is supple. RESPIRATORY respiratory effort normal, speaks in full sentences, no tripod position, no accessory muscle use. Lungs clear to auscultation without rhonchi, wheezes, rales CARDIAC Regular rate and rhythm, no edema. ABDOMINAL Soft, ND/NT. No evidence of fluid wave. No pulsatile masses on exam, rebound tenderness, Purcell sign or pain over Mcburney's point. MUSCLES/EXTREMITIES No abnormal range of motion, no swelling. SKIN Warm, pink and dry. No rashes, dermatoses, petechiae or lesions. NEUROLOGICAL Speech is clear and appropriate. Normal level of consciousness. Gait and coordination are normal. 5/5 strength in all extremities. PSYCH Normal mood and affect. Judgement/competence is appropriate Dave maneuver negative in clinic. Coding Level of Care Code Est Pt Level 3 (93392) Diagnoses Dizziness R42 Time Spent (min) 25 Assessment & Plan Assessment & Plan (1) Dizziness: Code(s): R42 - Dizziness and giddiness Category: Medical Plan: Patient with known history of palpitaitons. - Plan to use a Holter monitor for seven days to assess for arrhythmias. - Follow-up appointment scheduled on 05/14 to review Holter monitor results. - She has F-U with her superintendent container terminal on 05/13. Advised patient to followup on results with her superintendent container terminal. Plan We discussed the potential causes of dizziness, including ear-related issues, stroke, and cardiac arrhythmias, with the latter being the most likely. A Holter monitor was recommended to evaluate for arrhythmias, and a follow-up appointment was scheduled to review the results. Orders: Orders ECG 7 day holter monitor Today R42 - Dizziness and giddiness
--- OUTSIDE RECORDS SUMMARY | 2025-04-30 12:13 | XMS_ITS | Encounter Summary ---
Author Organization [email or web address] Address [address] [place] [address] [address] [place] [address] Care Team Providers Care Salad Bar Clerk Name Role Phone Unavailable Primary Care [...] (Late st Contact Info) Description 09/27/2022 Telephone [facility] [address], [place] [id number] Neymar Stewart DDS [address], [place] [phone] Prior Authorization (Serenity Terry 1945 Patient called [...]
--- OUTSIDE RECORDS SUMMARY | 2025-04-30 12:13 | XMS_ITS | Clinical Summary ---
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 12/17/2022 Type 2 [...] Team Description 04/02/2025 Orders Only [facility] [address] [place] [address] [place] [address] Marisol Jacobs MD Type 2 diabetes mellitus with peripheral neuropathy (Primary Dx); Acquired hypothyroidism 03/25/2025 Refill [facility] [address] [place] [address] [place] [address] Kaley Palafox MA Medication Refill 03/05/2025 11:40 AM EDT Office Visit [facility] [address] [place] [address] [place] [address] Marisol Jacobs MD Acquired hypothyroidism (Primary Dx); Type 2 diabetes mellitus with peripheral neuropathy; 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 03/05/2025 Orders Only [facility] [address] [place] [address] [place] [address] Marisol Jacobs MD Type 2 diabetes mellitus with peripheral neuropathy 03/05/2025 Refill [facility] [place] [address] Marisol Jacobs MD Medication Refill 03/05/2025 Telephone [facility] [address] [place] [address] Marisol Jacobs MD 02/27/2025 Refill [facility] [address] [place] [address] [place] [address] Marisol Jacobs MD Medication Refill from Last [...] AM EST Office Visit [facility] [address] [place] [address] Marisol Jacobs MD [address] [place] [address] Health Maintenance Due Date Last Done Comments [...] MD LAB BLOOD ORDERABLES F inal Result [address] [address] * (ABNORMAL) Hemoglobin A1c (04/27/2023 11:37 AM EDT) HEMOGLOBIN A1C 6.9(H) 4.3 - 5.8 % [facility] Blood 04/27/2023 11:3 7 AM EDT 04/27/2023 11:39 AM EDT Marisol Jacobs MD LAB BLOOD ORDERABLES F inal Result Performing Organization Address [facility] Co de Phone Number [address] [address] * (ABNORMAL) Basic metabolic panel (04/27/2023 11:37 AM EDT) SODIUM 140 133 - 146 mmol/L [facility] CHLORIDE 106 96 - 108 mmol/L [facility] POTASSIUM 3.5 3.3 - 5.1 mmol/L [facility] CO2 25 21 - 35 mmol/L [facility] BUN 21(H) 6 - 19 mg/dL [facility] CREATININE 1.10 0.5 - 1.5 mg/dL [facility] GLUCOSE 170(H) 70 - 99 mg/dL [facility] CALCIUM 9.4 8.4 - 10.3 mg/dL [facility] EGFR 52(L) >59 mL/min/1.7 3m2 [facility] Comment:Estimated glomerular filtration rate calculated using the CKD-EPI refit equation. ANION GAP 13 10 - 20 mmol/L [facility] Blood 04/27/2023 11:3 7 AM EDT 04/27/2023 11:38 AM EDT us Marisol Jacobs MD LAB BLOOD ORDERABLES F inal Result Performing Organization Address City/[facility]/ZIP Co de Phone Number [address] [address] from Last 3 Months or Most Recently Relevant to Health Maintenance Insurance MEDICARE PART A & [place] [address] [place] [address] MEDICARE REPLACEMENT [employer] [id number] MEDICARE PART A & B [facility] MEDICARE REPLACEMENT MEDICARE PART A & B [facility] MEDICARE REPLACEMENT MEDICARE PART A & B MEDICARE REPLACEMENT [employer] [id number] MEDICARE PART A & B MEDICARE REPLACEMENT [employer] [employer] [id number] MEDICARE PART A & B [facility] Care Teams Steam Press Operator Relationship Specialty Start Date End Date Nori Fay MD [address] [place] [address] PCP - General Internal Medicine 12/14/22 Cristhian Bob MD [address] [place] [address] Nephrology 12/17/22 Additional Source Comments The information contained in this document represents components of the legal health record. It is not the complete legal health record.[facility]
--- OUTSIDE RECORDS SUMMARY | 2025-04-30 12:13 | XMS_ITS | Clinical Summary ---
Author Organization [facility] Address [address] [address] [place] [address] Phone Care Team Providers Care Fitter Hand Name Role Phone Nori Fay MD Primary Care Provider [phone] Allergies Active Allergy Reactions Criticality Noted Date [...] age to complete this topic Insurance ([id number]) [place] [address] ([id number]) Care Teams Fitter Hand Relationship Specialty Start Date End Date Nori Fay MD [address] [place], [place] PCP - General 08/16/20
--- OUTSIDE RECORDS SUMMARY | 2025-04-30 12:13 | XMS_ITS | Clinical Summary ---
Author Organization [employer] Address [address] [place] [address] 7t [place] [address] Care Team Providers Care License Inspector Name Role Phone Unavailable Primary Care Provider [...]
--- OUTSIDE RECORDS SUMMARY | 2025-04-30 12:13 | XMS_ITS | Patient Health Record ---
Author Organization [facility] Address [address] [place] [address] Care Team Providers Care Refrigeration Installer Name Role Phone Pollo Fields Jr Reason For Referral No Information Plan Of Treatment No Information
--- OUTSIDE RECORDS SUMMARY | 2025-04-30 12:14 | XMS_ITS | Encounter Summary ---
Author Organization [employer] Address [address] [place] [address] 7t [place] [address] Care Team Providers Care Punch Box Tender Name Role Phone Unavailable Primary Care Provider Unavailabl e Reason for Visit * Reason Onset Date Comments new appt 05/16/2023 Encounter Details Date Type Department Care Team (Late st Contact Info) Description 05/16/2023 Telephone [facility] ADULT DENTAL [address] [place] [address] Neymar Stewart, BARBARAS [address] [place] [address] new appt Social History Tobacco Use Types [...]
--- OUTSIDE RECORDS SUMMARY | 2025-04-30 12:14 | XMS_ITS | Encounter Summary ---
Author Organization [employer] Address [address] [place] [address] 7t [place] [address] Care Team Providers Care Nuclear Powerplant Supervisor Name Role Phone Unavailable Primary Care Provider Unavailabl e Encounter Details Date Type Department Care Team (Latest Contact Info) Description 02/09/2022 Abstract [facility] CONVERSIONS Dental, Provider, DDS Social History Tobacco [...]
--- OUTSIDE RECORDS SUMMARY | 2025-04-30 12:14 | XMS_ITS | Encounter Summary ---
Author Organization [employer] Address [address] [place] [address] 7t [place] [address] Care Team Providers Care Mathematical Statistician Name Role Phone Unavailable Primary Care Provider Unavailabl e Encounter Details Date Type Department Care Team (Latest Contact Info) Description 07/24/2019 Abstract [facility] CONVERSIONS Dental, Provider, DDS Social History Tobacco [...]
== END 2025-04-30 10:50 | disposition home or self-care (01) ==
LOC: HO.HMCH 10:05
PROVIDERS: PCP Internal Medicine; Visit Provider Internal Medicine
DX: R42 Dizziness and giddiness (principal)

== ENCOUNTER → 2025-04-30 10:03 | Outpatient (BNVA) | payer OTHER, SELFPAY | PROVIDERS: PCP Internal Medicine; Visit Provider Internal Medicine | DX: R42 Dizziness and giddiness (principal) | CPT/HCPCS: 99212 ==

== ENCOUNTER 2025-06-01 11:19 | Outpatient (REF) | payer OTHER, SELFPAY ==
[2025-06-01 13:28] LABS: Anion Gap 10 (12-20); Blood Urea Nitrogen 13 mg/dL (9-16); Carbon Dioxide 30 mmol/L (22-29); Chloride 107 mmol/L (96-108); Estimated Glomerular Filt Rate > 60; Potassium 4.1 mmol/L (3.3-5.1); Sodium 143 mmol/L (135-145)
--- OUTSIDE RECORDS SUMMARY | 2025-06-01 14:28 | XMS_ITS | Clinical Summary ---
Author Organization [facility] Address [address] [place] [address] Phone Care Team Providers Care Shell Press Operator Name Role Phone Nori Fay [...] stomach pain Menadiol Sodium Diphosphate Diarrhea 09/05/19 Diarrhea and stomach pain Morphine Itching,Rash Low 09/05/2022 Oxycodone Other (See Comments) 11/17/2020 Pt stated not allergic just dont like taking them Penicillins Angioedema,Other (See Comments) 11/17/2020 Medications FREESTYLE MELANI 2 SENSOR kit Use as directed to monitor glucose, change q14 days, dx E11.9, on insulin 6 kit 3 11/16/19 23 Active traZODone (DESYREL) 50 MG tablet 12/06/19 23 Active rosuvastatin (CRESTOR) 40 MG tablet Take 40 mg by mouth. Active omeprazole (PRILOSEC) 20 MG capsule 12/06/19 23 Active mometasone (NASONEX) 50 mcg/actuation nasal spray 2 sprays by Nasal route. Active mirtazapine (REMERON) 30 MG tablet Take 15 mg by mouth nightly at bedtime as needed. 08/16/19 23 Active metoprolol succinate (TOPROL-XL) 25 MG 24 hr tablet 12/06/19 23 Active loratadine (CLARITIN) 10 mg tablet Take 1 tablet by mouth. Active lisinopril (PRINIVIL,ZES TRIL) 2.5 MG tablet 08/15/19 23 Active lidocaine (LIDODERM) 5 % 09/29/19 23 Active flecainide (TAMBOCOR) 50 MG tablet 08/15/19 23 Active doxylamine (UNISON) 25 mg tablet Take 50 mg by mouth. 08/15/19 23 Active cetirizine (ZYRTEC) 10 MG tablet 08/15/19 23 Active aspirin 81 MG EC tablet 12/06/19 23 Active levothyroxine (SYNTHROID, LEVOTHROID) 100 MCG tablet Take 100 mcg by mouth every morning. Active ezetimibe (ZETIA) 10 mg tablet Take 10 mg by mouth daily. 11/06/19 24 Active fluticasone propion-salme teroL (ADVAIR DISKUS) 100-50 mcg/dose DISKUS Inhale 100 mcg/actuation of fluticasone into the lungs 2 (two) times a day. 11/02/19 24 Active oxyCODONE 5 MG immediate release tablet Take 5 mg by mouth every 6 (six) hours as needed for pain (specific location in comments). 11/07/19 24 Active alcohol PadMIndicatio ns:Type 2 diabetes mellitus with peripheral neuropathy USE DIRECTED TO CLEAN SKIN PRIOR TO GIVING INSULIN OR APPLYING SENSOR UP TO 5 TIMES DAILY. 200 each 11/18/19 25 Active insulin pen needles, disposable, (BD INSULIN PEN NEEDLE UF SHORT) 31 gauge x 5/16 NdleIndicatio ns:Type 2 diabetes mellitus with peripheral neuropathy USE TO INJECT INSULIN 4 TIMES DAILY 120 each 01/09/20 25 Active albuterol 2.5 mg /3 mL (0.083 %) nebulizer solution 02/25/20 25 Active gabapentin (NEURONTIN) 100 MG capsule 02/27/20 25 Active pregabalin (LYRICA) 150 MG capsuleIndica tions:Type 2 diabetes mellitus with peripheral neuropathy Take 1 capsule (150 mg total) by mouth 2 (two) times a day. 180 capsule 3 03/05/20 25 Active insulin glargine (LANTUS SOLOSTAR U-100 INSULIN) 100 unit/mL (3 mL) InPn injection penIndication s:Type 2 diabetes mellitus with peripheral neuropathy INJECT 12 UNITS SUBCUTANEOUSLY DAILY PLUS 2 UNITS TO PRIME PEN WITH EACH DOSE 15 mL 3 03/05/20 25 Active insulin degludec U-100 (TRESIBA) injection penIndication s:Type 2 diabetes mellitus with peripheral neuropathy 12 units, subcutaneously, once daily, plus 2 units to prime needle with each dose; or as directed 15 mL 3 03/26/20 25 Active insulin aspart U-100 (NOVOLOG) 100 unit/mL (3 mL) injection penIndication s:Type 2 diabetes mellitus with peripheral neuropathy INJECT 13 TO 15 UNITS SUBCUTANEOUSLY 2 TO 3 TIMES DAILY BEFOREMEALS OR DIRECTED, PLUS 2 UNITS TO PRIME PEN WITH EACH DOSE 15 mL 1 05/21/20 25 Active insulin aspart U-100 (NOVOLOG) 100 unit/mL (3 mL) injection penIndication s:Type 2 diabetes mellitus with peripheral neuropathy INJECT 15 UNITS SUBCUTANEOUSLY 2 TO 3 TIMES DAILY BEFOREMEALS OR DIRECTED, PLUS 2 UNITS TO PRIME PEN WITH EACH DOSE 15 mL 2 03/05/20 25 2024 Discontinued Active Problems Problem Noted Date Diagnosed Date prison current use of insulin 12/17/2022 Type 2 diabetes mellitus with peripheral neuropa thy 12/17/2022 Overview (12/17/2022): [facility] [place] [facility], melani Assessment & Plan (03/05/2025 2:26 [...] Encounters Date Type Department Care Team Description 05/21/2025 Refill [facility] [address] [place] [address] Tiny Winslow PA-C Medication Refill 04/02/2025 Orders Only [facility] [place] [address] Marisol Jacobs MD Type 2 diabetes mellitus with peripheral neuropathy (Primary Dx); Acquired hypothyroidism 03/25/2025 Refill [facility] [place] [address] Kaley Palafox MA Medication Refill 03/05/2025 11:40 AM EDT Office Visit [facility] [address] [place] [address] Marisol Jacobs MD Acquired hypothyroidism (Primary Dx); Type 2 diabetes mellitus with peripheral neuropathy; prison current use of insulin 03/05/2025 Orders Only [facility] [address] [place] [address] Marisol Jacobs MD Type 2 diabetes mellitus with peripheral neuropathy 03/05/2025 Refill [facility] [address] [place] [address] Marisol Jacobs MD Medication Refill 03/05/2025 Telephone [facility] [address] [place] [address] Marisol Jacobs MD from Last 3 Months Social History Tobacco [...] AM EST Office Visit [facility] [address] [place] [address] Marisol Jacobs MD [address] [place] [address] [address] [place] [address] [email or web address] Health Maintenance Due Date Last Done Comments [...] 12/14/2022 INFLUENZA VACCINE (#1) 2025 COVID-19 VACCINE (1 - 2024-2 6 season) 2025 BLOOD PRESSURE 09/05/2025 03/05/2025 SMOKING [...] ORDERABLES F inal Result Performing Organization Address City/[facility]/ZIP Co de Phone Number [address] [address] * (ABNORMAL) Hemoglobin A1c (04/27/2023 11:37 AM EDT) HEMOGLOBIN A1C 6.9(H) 4.3 - 5.8 % [facility] Blood 04/27/2023 11:3 7 AM EDT 04/27/2023 11:39 AM EDT Marisol Jacobs MD LAB BLOOD ORDERABLES F inal Result Performing Organization Address [facility]/ZIP Co de Phone Number [address] [address] * (ABNORMAL) Basic metabolic panel (04/27/2023 11:37 AM EDT) SODIUM 140 133 - 146 mmol/L [facility] CHLORIDE 106 96 - 108 mmol/L [facility] POTASSIUM 3.5 3.3 - 5.1 mmol/L [facility] CO2 25 21 - 35 mmol/L [facility] BUN 21(H) 6 - 19 mg/dL [facility] CREATININE 1.10 0.5 - 1.5 mg/dL [facility] GLUCOSE 170(H) 70 - 99 mg/dL [facility] CALCIUM 9.4 8.4 - 10.3 mg/dL [facility] EGFR 52(L) >59 mL/min/1.7 3m2 [facility] Comment:Estimated glomerular filtration rate calculated using the CKD-EPI refit equation. ANION GAP 13 10 - 20 mmol/L [facility] Blood 04/27/2023 11:3 7 AM EDT 04/27/2023 11:38 AM EDT Marisol Jacobs MD LAB BLOOD ORDERABLES F inal Result [facility] [address] [place] [address] from Last 3 Months or Most Recently Relevant to Health Maintenance Insurance MEDICARE PART A & B Member Subscriber Plan / Payer (Ef fective 2011-Present) Name:Serenity Moreno Member ID:[id number] Relation to Subscriber:Self Name:Serenity Moreno Subscriber ID:[id number] Payer ID:[id number] Group ID:Not on file Type:Medicare Address: [facility] [employer] [facility] [address] [place] [phone] [facility]AC[facility] [employer] [employer] [id number] MEDICARE PART A & B [facility] MEDICARE REPLACEMENT [employer] [id number] MEDICARE PART A & B [facility] MEDICARE REPLACEMENT MEDICARE PART A & B [facility] MEDICARE REPLACEMENT Member Subscriber Plan / Payer (Ef fective 2017-Present) Name:Serenity Moreno Relation to Subscriber:Self Name:Harrison BarnesosaSerenity Payer ID:[id number] ([facility]) Group ID:[id number] Type:Medicare Address: [place] [address] [place] [address] MEDICARE PART A & B [facility] MEDICARE REPLACEMENT MEDICARE PART A & B [facility] MEDICARE REPLACEMENT Care Teams Shell Press Operator Relationship Specialty Start Date End Date Nori Fay MD [address] [place] [address] PCP - General Internal Medicine 12/14/22 Cristhian Bob MD [address] [place] [address] Nephrology 12/17/22 Additional Source Comments The information contained in this document represents components of the legal health record. It is not the complete legal health record.[facility]
--- OUTSIDE RECORDS SUMMARY | 2025-06-01 14:28 | XMS_ITS | Patient Health Record ---
Author Organization [facility] Address [address] [place] [address] Care Team Providers Care Primary School Principal Name Role Phone Pollo Fields Jr [phone] Reason For Referral No Information Plan Of Treatment No Information
--- OUTSIDE RECORDS SUMMARY | 2025-06-01 14:28 | XMS_ITS | Clinical Summary ---
Author Organization [employer] Address [address] [place] [address] 7t [place] [address] Care Team Providers Care Propeller Layout Worker Name Role Phone Unavailable Primary Care Provider [...]
--- OUTSIDE RECORDS SUMMARY | 2025-06-01 14:28 | XMS_ITS | Encounter Summary ---
Author Organization [employer] Address [address] [place] [address] 7t [place] [address] Care Team Providers Care Biblical Languages Professor Name Role Phone Unavailable Primary Care Provider [...] (Late st Contact Info) Description 09/27/2022 Telephone [facility] ADULT DENTAL [address] [place], [place] [phone] Neymar Stewart DDS [address] [place], [place] [phone] Prior Authorization (Serenity Terry 1945 Patient called [...]
--- OUTSIDE RECORDS SUMMARY | 2025-06-01 14:28 | XMS_ITS | Clinical Summary ---
Author Organization [facility] Address [address] [place] [address] Phone Care Team Providers Care Amusement Park Ride Mechanic Name Role Phone Nori Fay MD Primary Care Provider [phone] Allergies Active Allergy Reactions Criticality Noted Date [...] age to complete this topic Insurance ([id number]) [place] [address] ([id number]) Care Teams Amusement Park Ride Mechanic Relationship Specialty Start Date End Date Nori Fay MD [address] [place], [place] PCP - General 08/16/20
--- OUTSIDE RECORDS SUMMARY | 2025-06-01 14:29 | XMS_ITS | Encounter Summary ---
Author Organization [employer] Address [address] [place] [address] 7t [place] [address] Care Team Providers Care Cable Operator Name Role Phone Unavailable Primary Care Provider Unavailabl e Reason for Visit * Reason Onset Date Comments new appt 05/16/2023 Encounter Details Date Type Department Care Team (Late st Contact Info) Description 05/16/2023 Telephone [facility] ADULT DENTAL [address] [place] [address] Neymar Stewart, BARBARAS [address] [place] [address] new appt Social History Tobacco Use Types [...]
--- OUTSIDE RECORDS SUMMARY | 2025-06-01 14:29 | XMS_ITS | Encounter Summary ---
Author Organization [employer] Address [address] [place] [address] 7t [place] [address] Care Team Providers Care Wind Turbine Electrical Engineer Name Role Phone Unavailable Primary Care Provider Unavailabl e Encounter Details Date Type Department Care Team (Latest Contact Info) Description 02/09/2022 Abstract [facility] CONVERSIONS Dental, Provider, DDS Social [...]
--- OUTSIDE RECORDS SUMMARY | 2025-06-01 14:29 | XMS_ITS | Encounter Summary ---
Author Organization [employer] Address [address] [place] [address] 7t [place] [address] Care Team Providers Care Control Panel Operator Crude Unit Name Role Phone Unavailable Primary Care Provider Unavailabl e Encounter Details Date Type Department Care Team (Latest Contact Info) Description 07/24/2019 Abstract [facility] CONVERSIONS Dental, Provider, DDS Social [...]
== END 2025-06-01 11:20 | disposition home or self-care (01) ==
LOC: HO.10HDL 11:19
PROVIDERS: Visit Provider Internal Medicine Nephrology
DX: I10 Essential (primary) hypertension (principal)
CPT/HCPCS: 36415; 80051; 82565; 84520

== ENCOUNTER 2025-06-05 10:43 | Outpatient (AMB) | payer MEDICARE, SELFPAY ==
--- NOTE | 2025-06-05 11:04 | HO.NEPHOV ---
Vital Signs 06/05/25 11:06 Height 5 ft 4 in BP 100/60 Blood Pressure Location Rt brachial Position Sitting Pulse 65 Pulse Source Pulse Oximeter Pulse Oximetry (%) 97 Oxygen Delivery Method Room Air Intake Visit Reasons: 3mon f/u w/labs-Conf w/Karey daughter Metal Alloy Scientist Required: No Accompanied by: Self / Same As Patient Allergies codeine (CODEINE) Allergy (Intermediate, Verified 06/05/25 11:06) PRURITUS ibuprofen Allergy (Intermediate, Verified 06/05/25 11:06) stomach upset morphine (MORPHINE) Allergy (Intermediate, Verified 06/05/25 11:06) PRURITUS Penicillins (PENICILLINS) Allergy (Intermediate, Verified 06/05/25 11:06) SWELLING HPI Comments Details: Serenity was seen in the office for follow-up of her history of hypertension, microscopic hematuria and proteinuria. She, at times, has mild bilateral pedal edema. She does not have any shortness of breath, paroxysmal nocturnal dyspnea, orthopnea. She takes nonsteroidal anti-inflammatory medications but not on a regular basis. She has not had any urinary infection, microscopic hematuria, dizziness, chest pain. She sees a electrical project engineer . She had no other new active complaints during this office visit. Her blood sugars are reasonably well controlled [facility] Medical History Physical exam Osteoarthritis, hip, bilateral Right hip pain Left hip pain Palpitations SVT (supraventricular tachycardia) B12 deficiency Leg edema Cognitive impairment Diabetic polyneuropathy Insomnia GERD (gastroesophageal reflux disease) High cholesterol Diabetes Hypothyroidism Hypertension Urge urinary incontinence Surgical History History of total abdominal hysterectomy Hx of bilateral breast biopsy Family History Father CVD (cardiovascular disease) Mother CVD (cardiovascular disease) Son No problems noted. Son Renal cell cancer Social History Housing: Apartment Alcohol intake: current Alcohol intake frequency: holidays/special occasions only Alcohol type: wine Patient Tobacco Use Status: Former Tobacco user Tobacco use type: Cigarette e-Cigarette/Vaping Use: Never Used Second Hand Smoke Exposure: No service: No Current occupational status: disabled Cognitive needs: Yes Hearing needs: No Vision needs: No Review of Systems Const All systems reviewed & are unremarkable except as noted in HPI and below Physical Exam Vital Signs: Last Vital Signs Pulse 65 06/05/25 11:06 BP 100/60 06/05/25 11:06 Pulse Ox 97 06/05/25 11:06 Oxygen Delivery Method Room Air 06/05/25 11:06 Const General: comfortable and no acute distress Orientation/consciousness: patient oriented x3 HEENT Head: Yes normocephalic Mouth: Normal oral and palatal mucosa present Eyes EOM: EOMs intact bilaterally Neck Neck: Yes supple Resp Auscultation: clear to auscultation bilaterally Cardio Jugular venous distension: no JVD Rate: regular rate GI Palpation (GI): Soft to palpation Auscultation: normal bowel sounds General: Yes no CVA tenderness Back/Spine/Pelvis Back: no CVA tenderness Skin General skin exam: no rashes or lesions noted Neuro General: patient oriented x3 and moves all extremities Extrem General: Yes no pedal edema Results Reviewed Nephrology Results: Hgb, (12.0-16.0) 12.7 g/dl 04/21/25 WBC, (4.8-10.8) 4.9 X10*3/uL 04/21/25 Plt Count, (160-400) 157 X10*3/uL L 04/21/25 Sodium, (135-145) 143 mmol/L 06/01/25 Potassium, (3.3-5.1) 4.1 mmol/L 06/01/25 Chloride, (96-108) 107 mmol/L 06/01/25 Carbon Dioxide, (22-29) 30 mmol/L H 06/01/25 BUN, (9-16) 13 mg/dL 06/01/25 Creatinine, (0.5-1.4) 0.75 mg/dL 06/01/25 Assessment & Plan Assessment & Plan (1) Hypertension: Code(s): I10 - Essential (primary) hypertension Category: Medical Qualifiers: Hypertension type: essential hypertension Qualified Code(s): I10 - Essential (primary) hypertension (2) Hematuria: Code(s): R31.9 - Hematuria, unspecified Category: Medical Qualifiers: Hematuria type: asymptomatic microscopic Qualified Code(s): R31.21 - Asymptomatic microscopic hematuria Plan Serenity has history of microscopic hematuria and proteinuria. She is on Marcio inhibitors. Her blood pressure is at goal at home.She is on Bumex 0.5 mg to be taken as needed. She has not had any macroscopic hematuria. Her renal functions had been stable. She needs to maintain her blood sugar at goal. She needs to lose more weight. She will be a candidate for Jardiance or Farxiga. I have ordered follow-up lab work. All her questions were answered. Orders: Orders UA and rflx microscopic 6 Months I10 - Essential (primary) hypertension, R31.21 - Asymptomatic microscopic hematuria Protein Creatinine Ratio, Ur 6 Months I10 - Essential (primary) hypertension, R31.21 - Asymptomatic microscopic hematuria Creatinine 6 Months I10 - Essential (primary) hypertension, R31.21 - Asymptomatic microscopic hematuria Electrolytes 6 Months I10 - Essential (primary) hypertension, R31.21 - Asymptomatic microscopic hematuria Blood Urea Nitrogen 6 Months I10 - Essential (primary) hypertension, R31.21 - Asymptomatic microscopic hematuria Coding Level of Care Code Est Pt Level 4 (51019) Diagnoses Essential hypertension I10 Hypertension type: essential hypertension Asymptomatic microscopic hematuria R31.21 Hematuria type: asymptomatic microscopic
[2025-06-05 11:06] VITALS: BP 100/60; PULSE 65; O2SAT 97
--- OUTSIDE RECORDS SUMMARY | 2025-06-05 12:11 | XMS_ITS | Clinical Summary ---
Author Organization [facility] Address [address] [place] [address] Phone Care Team Providers Care Tong Setter Name Role Phone Nori Fay MD Primary [...] Active Problems Problem Noted Date Diagnosed Date correction current use of insulin 12/17/2022 Type 2 [...] Team Description 05/21/2025 Refill [facility] [address] [place] [address] Tiny Winslow PA-C Medication Refill 04/02/2025 Orders Only [facility] [place] [address] Marisol Jacobs MD Type 2 diabetes mellitus with peripheral neuropathy (Primary Dx); Acquired hypothyroidism 03/25/2025 Refill [facility] [place] [address] Kaley Palafox MA Medication Refill 03/05/2025 11:40 AM EDT Office Visit [facility] [address] [place] [address] Marisol Jacobs MD Acquired hypothyroidism (Primary Dx); Type 2 diabetes mellitus with peripheral neuropathy; correction current use of insulin 03/05/2025 Orders Only [facility] [address] [place] [address] Marisol Jacobs MD Type 2 diabetes mellitus with peripheral neuropathy 03/05/2025 Refill [facility] [address] [place] [address] Marisol Jacobs MD Medication Refill 03/05/2025 Telephone [facility] [address] [place] [address] Marisol Jacobs MD from Last 3 Months [...] AM EST Office Visit [facility] [address] [place] [address] Marisol Jacobs MD [address] [place] [address] [address] [place] [address] [email or web address] Health Maintenance Due Date Last Done Comments [...] ORDERABLES F inal Result Performing Organization Address City/[facility]/ZIP Co de Phone Number [address] [address] * (ABNORMAL) Hemoglobin A1c (04/27/2023 11:37 AM EDT) HEMOGLOBIN A1C 6.9(H) 4.3 - 5.8 % [facility] Blood 04/27/2023 11:3 7 AM EDT 04/27/2023 11:39 AM EDT Marisol Jacobs MD LAB BLOOD ORDERABLES F inal Result Performing Organization Address [facility]/ZIP Co de Phone Number [address] [address] * (ABNORMAL) Basic metabolic panel (04/27/2023 11:37 AM EDT) SODIUM 140 133 - 146 mmol/L [facility] CHLORIDE 106 96 - 108 mmol/L [facility] POTASSIUM 3.5 3.3 - 5.1 mmol/L [facility] CO2 25 21 - 35 mmol/L [facility] BUN 21(H) 6 - 19 mg/dL [facility] CREATININE 1.10 0.5 - 1.5 mg/dL [facility] GLUCOSE 170(H) 70 - 99 mg/dL [facility] CALCIUM 9.4 8.4 - 10.3 mg/dL [facility] EGFR 52(L) >59 mL/min/1.7 3m2 [facility] Comment:Estimated glomerular filtration rate calculated using the CKD-EPI refit equation. ANION GAP 13 10 - 20 mmol/L [facility] Blood 04/27/2023 11:3 7 AM EDT 04/27/2023 11:38 AM EDT Marisol Jacobs MD LAB BLOOD ORDERABLES F inal Result [facility] [address] [place] [address] from Last 3 Months or Most Recently Relevant to Health Maintenance Insurance MEDICARE PART A & B [facility] MEDICARE REPLACEMENT CONOR METZGER [id number] MEDICARE PART A & B [facility] MEDICARE REPLACEMENT CONOR METZGER [id number] MEDICARE PART A & B Member Subscriber Plan / Payer (Ef fective 2011-Present) Name:Serenity Moreno Member ID:[id number] Relation to Subscriber:Self Name:Serenity Moreno Subscriber ID:[id number] Payer ID:[id number] Group ID:Not on file Type:Medicare Address: [employer] [address] [place] [address] [facility] MEDICARE REPLACEMENT MEDICARE PART A & B Member Subscriber Plan / Payer (Ef fective 2011-Present) Name:Serenity Moreno Member ID:[id number] Relation to Subscriber:Self Name:Serenity Moreno Subscriber ID:[id number] Payer ID:[id number] Group ID:Not on file Type:Medicare Address: [employer] [address] [place] [address] [facility] MEDICARE REPLACEMENT MEDICARE PART A & B Member Subscriber Plan / Payer (Ef fective 2011-Present) Name:Harrison Vergara, Serenity Member ID:[id number] Relation to Subscriber:Self Name:Serenity Moreno Subscriber ID:[id number] Payer ID:[id number] Group ID:Not on file Type:Medicare Address: [employer] [address] [place] [address] [facility] MEDICARE REPLACEMENT MEDICARE PART A & B [facility] MEDICARE REPLACEMENT Care Teams Tong Setter Relationship Specialty Start Date End Date Nori Fay MD [address] [place] [address] PCP - General Internal Medicine 12/14/22 Cristhian Bob MD [address] [place] [address] Nephrology 12/17/22 Additional Source Comments The information contained in this document represents components of the legal health record. It is not the complete legal health record.[facility]
--- OUTSIDE RECORDS SUMMARY | 2025-06-05 12:11 | XMS_ITS | Clinical Summary ---
Author Organization [employer] Address [address] [place] [address] [address] [place] [address] Care Team Providers Care Boat Master Name Role Phone Unavailable Primary Care Provider [...]
--- OUTSIDE RECORDS SUMMARY | 2025-06-05 12:12 | XMS_ITS | Patient Health Record ---
Author Organization [facility] [facility] Address [address] [place] [address] Care Team Providers Care Bench Worker Binding Name Role Phone Pollo Fields Jr Reason For Referral No Information Plan Of Treatment No Information
--- OUTSIDE RECORDS SUMMARY | 2025-06-05 12:12 | XMS_ITS | Encounter Summary ---
Author Organization [employer] Address [address] [place] [address] [address] [place] [address] Care Team Providers Care Sanitor Name Role Phone Unavailable Primary Care Provider Unavailabl e Encounter Details Date Type Department Care Team (Latest Contact Info) Description 07/24/2019 Abstract [facility] CONVERSIONS Dental, Provider, DDS Social History [...]
--- OUTSIDE RECORDS SUMMARY | 2025-06-05 12:12 | XMS_ITS | Encounter Summary ---
Author Organization [employer] Address [address] [place] [address] 7t [place] [address] Care Team Providers Care Sales Professional Bilingual Name Role Phone Unavailable Primary Care Provider [...] (Late st Contact Info) Description 09/27/2022 Telephone [facility] [address] [place], [place] [phone] Neymar Stewart DDS [address], [place] [phone] Prior Authorization (Serenity Terry 1945 Patient called [...]
--- OUTSIDE RECORDS SUMMARY | 2025-06-05 12:12 | XMS_ITS | Encounter Summary ---
Author Organization [employer] Address [address] [place] [address] 7[address] [place] [address] Care Team Providers Care Rib Bender Name Role Phone Unavailable Primary Care Provider Unavailabl e Encounter Details Date Type Department Care Team (Latest Contact Info) Description 02/09/2022 Abstract [facility] CONVERSIONS Dental, Provider, DDS Social History Tobacco [...]
--- OUTSIDE RECORDS SUMMARY | 2025-06-05 12:12 | XMS_ITS | Encounter Summary ---
Author Organization [employer] Address [address] [place] [address] [address]t [place] [address] Care Team Providers Care Lime Trimmer Name Role Phone Unavailable Primary Care Provider Unavailabl e Reason for Visit * Reason Onset Date Comments new appt 05/16/2023 Encounter Details Date Type Department Care Team (Late st Contact Info) Description 05/16/2023 Telephone [facility]ULT [facility] [address] [place] [address] Neymar Stewart, MICHAEL [address] [place] [address] new appt Social History Tobacco Use Types [...]
== END 2025-06-05 11:23 | disposition home or self-care (01) ==
LOC: HO.HKA 10:44
PROVIDERS: PCP Internal Medicine; Visit Provider Internal Medicine Nephrology
DX: I10 Essential (primary) hypertension (principal); R31.21 Asymptomatic microscopic hematuria
CPT/HCPCS: 99214

== ENCOUNTER → 2025-06-05 10:43 | Outpatient (BNVA) | payer MEDICARE, SELFPAY | PROVIDERS: PCP Internal Medicine; Visit Provider Internal Medicine Nephrology | DX: I10 Essential (primary) hypertension (principal); R31.21 Asymptomatic microscopic hematuria | CPT/HCPCS: 99212 ==

== ENCOUNTER 2025-07-07 11:00 | Outpatient (AMB) | payer OTHER, SELFPAY ==
[2025-07-07 11:13] VITALS: BP 126/68; PULSE 64; RESP 18; O2SAT 97; BMI 32.6
--- NOTE | 2025-07-07 11:13 | MHC.PC.OV ---
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 Accompanied by: Self / Same As Patient Allergies codeine (CODEINE) Allergy (Intermediate, Verified 07/07/25 11:37) PRURITUS ibuprofen Allergy (Intermediate, Verified 07/07/25 11:37) stomach upset morphine (MORPHINE) Allergy (Intermediate, Verified 07/07/25 11:37) PRURITUS Penicillins (PENICILLINS) Allergy (Intermediate, Verified 07/07/25 11:37) SWELLING Medication List - Last Reconciled 07/07/25 by Nori Parra MD acetaminophen 500 mg PO Q6H PRN 30 days Advair HFA 115-21 mcg/actuation (fluticasone propion-salmeterol) 2 puffs inhalation Q12H 30 days NS albuterol sulfate 2.5 mg (3 mL) inhalation TID PRN 30 days alcohol swabs 0 pad topical aspirin 81 mg PO DAILY blood pressure test kit-large As directed blood sugar diagnostic As directed blood-glucose meter As directed bumetanide 0.5 mg PO DAILY PRN cetirizine 10 mg PO BID 30 days ezetimibe 10 mg PO DAILY 90 days flecainide 50 mg PO Q12H 30 days fluocinolone acetonide oil 0.01% (DermOtic Oil) 5 drps otic (ears) BID 7 days fluticasone propion-salmeterol 250-50 mcg/dose (Advair Diskus) 1 inh inhalation BID 30 days [hospital bed side table As directed] incontinence pad, liner, disp Use 1 pad three times a day insulin aspart U-100 units subcut insulin glargine (Lantus Solostar U-100 Insulin) 16 units (0.16 mL) subcut BEDTIME latex gloves (Latex Gloves, Large) As directed levothyroxine 100 mcg PO DAILY 90 days lisinopril 2.5 mg PO DAILY [Mask and tubing for nebulizer machine As directed] meclizine 25 mg PO BID PRN 30 days metoprolol succinate ER 25 mg PO DAILY mirtazapine 30 mg PO BEDTIME 90 days [nebulizer mask and tubing As directed] nebulizers (AeroEclipse II Nebulizer) As directed nebulizers (AeroEclipse II Nebulizer) As directed omeprazole 20 mg PO DAILY 90 days oxycodone 5 mg PO Q8H PRN 30 days pen needle, diabetic As directed pregabalin 200 mg PO DAILY rosuvastatin 40 mg PO DAILY 90 days silver sulfadiazine 1% 1 appl topical DAILY 7 days trazodone 100 mg PO BEDTIME 90 days triamcinolone acetonide 0.025% 1 appl topical DAILY 2 weeks [wedge pillow As directed] [wipes As directed] Tobacco use date assessed: 07/07/25 Fall risk assessment: No Falls in past year Last assessed Fall Risk: 07/07/25 Dental Screening Dental Screen Date: 07/07/25 Did you have a dental visit in the last 12 months?: No Did you have a dental problem in the last 6 months where you did not have access to dental care?: No Was dental information given to patient?: Patient has dentist HPI HPI Comments History of Present Illness Details The patient is a 79 year old individual presenting for follow-up and management of multiple chronic conditions including diabetes mellitus type 2, hypertension, hyperlipidemia, hypothyroidism and chronic low back pain. The patient has a history of allergies to codeine, which causes pruritus, and ibuprofen, which causes stomach pain, as well as morphine and penicillin. 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 A1c of 6.9% today and this is follow by Endocrinology. Recent diagnostic testing included a carotid doppler and another test last month, both of which were with no significant abnormality. The patient also has a history of dizziness, which has resolved, and headaches that were not associated with head movement. Current medications reviewed include Advair, aspirin, bumetanide, cetirizine, ezetimibe, flecainide, Lantus, a thyroid medication, omeprazole, pregabalin, rosuvastatin, oxycodone, and trazodone for sleep. The patient denies needing oxycodone at this time. [facility] Medical History Physical exam Osteoarthritis, hip, bilateral Right hip pain Left hip pain Palpitations SVT (supraventricular tachycardia) B12 deficiency Leg edema Cognitive impairment Diabetic polyneuropathy Insomnia GERD (gastroesophageal reflux disease) High cholesterol Diabetes Hypothyroidism Hypertension Urge urinary incontinence Surgical History History of total abdominal hysterectomy Hx of bilateral breast biopsy Family History Father CVD (cardiovascular disease) Mother CVD (cardiovascular disease) Son No problems noted. Son Renal cell cancer Social History Housing: Apartment Alcohol intake: current Alcohol intake frequency: holidays/special occasions only Alcohol type: wine Patient Tobacco Use Status: Former Tobacco user Tobacco use type: Cigarette e-Cigarette/Vaping Use: Never Used Second Hand Smoke Exposure: No service: No Current occupational status: disabled Cognitive needs: Yes Hearing needs: No Vision needs: No Questionnaire Thrive Questionnaire Date Thrive assessed: 07/07/25 I am a: Patient What is your living situation today?: I have a steady place to live Within the past 12 months, did the food you bought not last and you didn't have the money to get more?: Never true Within the past 12 months, did you worry whether your food would run out before you got money to buy more?: Never true Do you have trouble paying for medicines?: No Do you have trouble getting transportation to medical appointments?: No Do you have trouble paying your heating and electricity bill?: No Do you have trouble taking care of your child, family member or friend?: No Do you have trouble with day-to-day activities such as bathing, preparing meals, shopping, managing finances, etc.?: Yes Are you currently unemployed and looking for a job?: No Are you interested in more education?: No Please select the resources that you would like help with: Food Currently or been in a relationship where the following occur: I choose not to answer THRIVE Score: 0 CLAU-7 AMB Questionnaire CLAU-7 Date CLAU - 7 assessed: 09/02/24 Source: Developed by Drs. Anil Jimenes, Rain B.W. Byron Becerra and colleagues, with an educational jammie from [employer]. Review of Systems Const All systems reviewed & are unremarkable except as noted in HPI and below Card Denies chest pain at rest, Denies chest pain with activity, Denies edema, Denies irregular heart rhythm, Denies claudication, Denies dyspnea, Denies dyspnea on exertion, Denies orthopnea, Denies paroxysmal nocturnal dyspnea and Denies slow heart rate Resp Denies cough, Denies dyspnea and Denies dyspnea on exertion GI Denies abdominal pain, Denies change in bowel habits, Denies excessive flatus, Denies nausea and Denies vomiting Physical exam (Primary Care) Vital Signs: Last Vital Signs Pulse 64 07/07/25 11:13 Resp 18 07/07/25 11:13 BP 126/68 07/07/25 11:13 Pulse Ox 97 07/07/25 11:13 Oxygen Delivery Method Room Air 07/07/25 11:13 BMI result Body Mass Index 32.6 Tobacco/Smoking Status: Tobacco use Status Tobacco use date assessed 07/07/25 07/07/25 11:16 Patient Tobacco Use Status Former Tobacco user 07/07/25 11:16 Tobacco use type Cigarette 07/07/25 11:16 e-Cigarette/Vaping Use Never Used 07/07/25 11:16 Thrive Assessment: Date of Thrive Assessment Date Thrive assessed 07/07/25 07/07/25 11:16 Currently or been in a relationship where the following occur: I choose not to answer Resp Effort & Inspection: normal respiratory effort Auscultation: clear to auscultation bilaterally Cardio Jugular venous distension: no JVD Rate: regular rate Rhythm: regular rhythm Heart sounds: S1 normal heart sound present and S2 normal heart sound present Extrem General: Yes full ROM Results AMB Hemoglobin A1c AMB Hemoglobin A1c 6.7 % Last Edit by Bethanie Barnes MA on 07/07/25 11:29 Results Reviewed Results Reviewed: Laboratory Last Values Hgb A1c (Clinic) 6.7 % (4.0-6.0) H 07/07/25 11:18 Coding Level of Care Code Complex visit Add On G2211 Diagnoses Diabetes mellitus, with long-term current use of insulin E11.9; Z79.4 Acquired hypothyroidism E03.9 Hypothyroidism type: acquired Hyperlipidemia LDL goal <70 E78.5 Essential hypertension I10 Hypertension type: essential hypertension Time Spent (min) 22 Assessment & Plan Assessment & Plan (1) Diabetes mellitus, with long-term current use of insulin: Code(s): E11.9 - Type 2 diabetes mellitus without complications; 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 Diabetes mellitus type 2 with long-term current use of insulin complicated by polyneuropathy Patient follows with endocrinology for this matter. Her A1c was within goal today being 6.9%. She will continue Lantus and short-acting insulin. Diabetic eye exam will be done yearly. On pregabalin for polyneuropathy which has controlled the pain. 2. Essential Hypertension Continue lisinopril. Blood pressure goal is equal or less than 130/80. Follow-up with nephrology. Follow-up with Cardiology. 3. Hyperlipidemia Continue statins. LDL goal is less than 70. Advise a high-fiber and low-cholesterol diet. 4. Hypothyroidism Continue levothyroxine. Follow-up with endocrinology. Orders: Orders AMB Hemoglobin A1c Today Z13.9 - Encounter for screening, unspecified Microalbumin, Random (w Creat) 3 Months R80.9 - Proteinuria, unspecified Lipid Panel 3 Months E78.5 - Hyperlipidemia, unspecified Comprehensive [place]. Panel Fast 3 Months E78.5 - Hyperlipidemia, unspecified
== END 2025-07-07 12:24 | disposition home or self-care (01) ==
LOC: HO.HMCH 11:01
PROVIDERS: PCP Internal Medicine; Visit Provider Internal Medicine
DX: E11.9 Type 2 diabetes mellitus without complications (principal); Z79.4 Long term (current) use of insulin; E03.9 Hypothyroidism, unspecified; E78.5 Hyperlipidemia, unspecified; I10 Essential (primary) hypertension; Z13.9 Encounter for screening, unspecified

== ENCOUNTER → 2025-07-07 11:00 | Outpatient (BNVA) | payer OTHER, SELFPAY | PROVIDERS: PCP Internal Medicine; Visit Provider Internal Medicine | DX: E11.42 Type 2 diabetes mellitus with diabetic polyneuropathy (principal); I10 Essential (primary) hypertension; E78.5 Hyperlipidemia, unspecified; E03.9 Hypothyroidism, unspecified; M54.50 Low back pain, unspecified; R42 Dizziness and giddiness; R51.9 Headache, unspecified; Z79.4 Long term (current) use of insulin; R80.9 Proteinuria, unspecified | CPT/HCPCS: 83036; 99212 ==